=== PATIENT | female | born 1955 | race Two or more races ===

== ENCOUNTER 2020-01-12 12:10 | Outpatient (REF) | payer OTHER, SELFPAY | END 2020-01-12 12:11 | disposition home or self-care (01) | LOC: HO.HMGCLDS 12:10 | PROVIDERS: PCP Internal Medicine; Visit Provider Internal Medicine | DX: Z20.828 Contact with and (suspected) exposure to other viral communicable diseases (principal) | CPT/HCPCS: C9803; U0003 ==

== ENCOUNTER 2020-05-04 08:32 | Outpatient (REF) | payer OTHER, SELFPAY ==
[2020-05-05 10:16] LABS: BV Int Neg Control Negative (Negative); BV Int Pos Control Positive (Positive)
[2020-05-05 23:12] LABS: C. trachomatis RNA TMA NOT DETECTED (NOT DETECTED); N. gonorrhoeae RNA TMA NOT DETECTED (NOT DETECTED)
== END 2020-05-04 08:33 | disposition home or self-care (01) ==
LOC: HO.LAB 08:32
PROVIDERS: Visit Provider Obstetrics & Gynecology
DX: R10.2 Pelvic and perineal pain (principal); Z11.3 Encounter for screening for infections with a predominantly sexual mode of transmission
CPT/HCPCS: 81003; 87086; 87480; 87491; 87510; 87591; 87660

== ENCOUNTER 2020-05-18 07:57 | Outpatient (REF) | payer OTHER, SELFPAY ==
[2020-05-18 10:43] LABS: TSH reflex Free T4 0.58 uIU/mL (0.32-4.0)
[2020-05-19 10:13] LABS: CT PCR NOT DETECTED (Not Detect.); NG PCR NOT DETECTED (Not Detect.)
== END 2020-05-18 07:58 | disposition home or self-care (01) ==
LOC: HO.LAB 07:57
PROVIDERS: PCP Internal Medicine; Visit Provider Obstetrics & Gynecology
DX: Z01.419 Encounter for gynecological examination (general) (routine) without abnormal findings (principal); Z11.3 Encounter for screening for infections with a predominantly sexual mode of transmission; R63.5 Abnormal weight gain
CPT/HCPCS: 84443; 87086; 87491; 87591; 88142

== ENCOUNTER 2020-07-12 09:07 | Outpatient (REF) | payer OTHER, SELFPAY ==
[2020-07-12 12:06] LABS: Alanine Aminotransferase 44 U/L (0-31); Albumin Level 4.3 g/dL (3.5-5.0); Alkaline Phosphatase 53 U/L (39-117); Anion Gap 12 (12-20); Aspartate Amino Transferase 34 U/L (5-31); Bilirubin Total 0.9 mg/dL (0.0-1.0); Blood Urea Nitrogen 20 mg/dL (9-16); Calcium 9.4 mg/dL (8.4-10.2); Carbon Dioxide 30 mmol/L (22-29); Chloride 103 mmol/L (96-108); Cholesterol 214 mg/dL; Estimated Glomerular Filt Rate > 60; Glucose Fasting 122 mg/dL (60-99); HDL Cholesterol 46 mg/dL; Potassium 3.6 mmol/L (3.3-5.1); Sodium 141 mmol/L (135-145); Total Protein 6.9 g/dL (6.5-8.0); Triglycerides 427 mg/dL
[2020-07-12 12:07] LABS: TSH reflex Free T4 0.34 uIU/mL (0.32-4.0)
== END 2020-07-12 09:08 | disposition home or self-care (01) ==
LOC: HO.HMGCLDS 09:07
PROVIDERS: PCP Nurse Practitioner Family; Visit Provider Nurse Practitioner Family
DX: Z00.00 Encounter for general adult medical examination without abnormal findings (principal); R74.8 Abnormal levels of other serum enzymes; E78.5 Hyperlipidemia, unspecified
CPT/HCPCS: 36415; 80053; 80061; 84443

== ENCOUNTER 2020-07-25 15:21 | Outpatient (REF) | payer OTHER, SELFPAY ==
--- NOTE | ~2020-07-25 | MM_ITS ---
EXAMINATION: MM SCREENING DIGITAL BREAST TOMOSYNTHESIS, BILATERAL CLINICAL INFORMATION: Screening. Asymptomatic. The lifetime risk of breast cancer based on the Tyrer-Cuzick Model is 5.1%. COMPARISON: Mammography: April 01, 2017 and studies dating back to July 08, 2013 TECHNIQUE: Digital breast tomosynthesis is performed in both the craniocaudal and mediolateral oblique views along with computer-aided detection (CAD). Synthesized 2D images are generated from the tomosynthesis. FINDINGS: The breasts are heterogeneously dense, which may obscure small masses (ACR BI-RADS breast composition Category c). There are no significant masses, abnormal calcifications, or other abnormalities. MM/MM tomosynthesis screening BI IMPRESSION: There are no significant changes from prior study. ASSESSMENT: BI-RADS 1: Negative RECOMMENDATION: Routine annual mammography screening. This patient's information was entered into a reminder system with a target due date for their next mammogram.
== END 2020-07-25 15:22 | disposition home or self-care (01) ==
LOC: HO.MAMMO 15:21
PROVIDERS: PCP Nurse Practitioner Family; Visit Provider Nurse Practitioner Family
DX: Z12.31 Encounter for screening mammogram for malignant neoplasm of breast (principal)
CPT/HCPCS: 77063; 77067

== ENCOUNTER 2021-01-03 07:41 | Outpatient (REF) | payer OTHER, SELFPAY ==
[2021-01-03 12:05] LABS: Alanine Aminotransferase 46 U/L (0-31); Albumin Level 4.2 g/dL (3.5-5.0); Alkaline Phosphatase 49 U/L (39-117); Anion Gap 12 (12-20); Aspartate Amino Transferase 39 U/L (5-31); Bilirubin Total 0.6 mg/dL (0.0-1.0); Blood Urea Nitrogen 16 mg/dL (9-16); Calcium 9.5 mg/dL (8.4-10.2); Carbon Dioxide 30 mmol/L (22-29); Chloride 104 mmol/L (96-108); Cholesterol 189 mg/dL; Estimated Glomerular Filt Rate > 60; Glucose Random 122 mg/dL (60-115); HDL Cholesterol 52 mg/dL; LDL Cholesterol Calculated 86 mg/dl; Potassium 3.8 mmol/L (3.3-5.1); Sodium 142 mmol/L (135-145); Total Protein 6.7 g/dL (6.5-8.0); Triglycerides 256 mg/dL
[2021-01-04 10:31] LABS: HBS Num1 1.09 mIU/mL (0-7.99); HBc Num1 0.05 S/CO (0.00-0.79); HBsAGNum1 0.17 S/CO (0.00-0.99); Hepatitis B Core Antibody Nonreactive (Nonreactive); Hepatitis B Surface Antigen Negative (Negative); ~HepC Num1 0.13 S/CO (0.00-0.79); ~Hepatitis B Surface Antibody NONREACTIVE (Nonreactive); ~Hepatitis C Antibody Nonreactive (Nonreactive)
[2021-01-06 03:57] LABS: Hepatitis A Antibody IgM 0.38 Index (0-0.79); ~Hepatitis A Antibody IgM Nonreactive (Nonreactive)
== END 2021-01-03 07:42 | disposition home or self-care (01) ==
LOC: HO.HMGCLDS 07:41
PROVIDERS: PCP Nurse Practitioner Family; Visit Provider Nurse Practitioner Family
DX: E78.5 Hyperlipidemia, unspecified (principal); R74.8 Abnormal levels of other serum enzymes
CPT/HCPCS: 36415; 80053; 80061; 86704; 86706; 86709; 86803; 87340

== ENCOUNTER 2021-03-08 22:47 | Emergency (ER) | payer OTHER, MEDICAID, SELFPAY ==
[2021-03-08 23:04] VITALS: BP 153/86; PULSE 49; RESP 18; TEMP 36.7; O2SAT 95; BMI 27.3
[2021-03-08 23:43] VITALS: BP 152/92; PULSE 48; RESP 18; O2SAT 95
--- NOTE | 2021-03-09 00:04 | ED_ITS ---
HPI - General Adult General Chief complaint: Allergic Reaction Stated complaint: ?stroke Time Seen by Provider: 03/08/21 22:59 Source: patient Mode of arrival: ambulatory Limitations: no limitations History of Present Illness HPI narrative: 66-year-old female who presents emergency department for evaluation of numbness, shortness of breath and difficulty talking. The patient states that she has been sick since Saturday02/28/2021. She states that she developed a viral-like illness with a cough, intermittent fever and shortness of breath. She did a home COVID-19 test on 03/04/2021 and also had a positive CO VID-19 test on 03/05/2021 at an urgent care clinic. She states that since that time she has been having a constant, throbbing, moderate headache. She has had weakness and fatigue. She has had a cough which is nonproductive. She has had multiple episodes of diarrhea. Prior to coming to the emergency department the patient took Mucinex DM which contains guaifenesin and dexamethasone. Approxim ately 20 minutes after taking this medication she felt lightheaded and dizzy. She states she developed numbness in her mouth, arms and legs. She states that her entire body became numb and she felt like if she was going to pass out. She had difficulty talking. Her family was concerned that she was having a stroke hilda was brought to the emergency department. At triage the patient was unable to talk and she was brought into the emergency department. I evaluated her immediately for possible stroke, the patient was able to talk, answer questions and move all extremities, she appeared to be hyperventilating and her symptoms are more consistent with hyperventilation syndrome. Related Data Previous Rx's Medication Instructions Recorded omega-3 acid ethyl esters 1 gram 1 cap PO BID 90 Days #180 cap 07/12/20 capsule lisinopril 20 1 tab PO DAILY 90 Days #90 tab 01/03/21 mg-hydrochlorothiazide 25 mg tablet metoprolol succinate 50 mg 50 mg PO DAILY 90 Days #90 tab 01/03/21 tablet,extended release 24 hr rosuvastatin 40 mg tablet 40 mg PO DAILY 90 Days #90 tab 01/03/21 naproxen 500 mg tablet 500 mg PO BID PRN 90 Days #180 tab 01/14/21 albuterol sulfate 90 mcg/actuation 1 inh INHALATION QID PRN #6.7 g 02/17/21 aerosol inhaler codeine 10 mg-guaifenesin 100 mg/5 5 ml PO Q6H #237 ml 02/17/21 mL oral liquid Allergies Allergy/AdvReac Type Severity Reaction Status Date / Time Wellbutrin AdvReac Unknown worsening Uncoded 02/17/21 09:52 mood, dizziness Review of Systems Review of Systems: Yes all other systems are reviewed and are negative [facility] Past Medical History Medical History AAA (abdominal aortic aneurysm) Back pain Elevated fasting glucose HTN (hypertension) Hyperlipemia Migraines Family History Family History Mother Thyroid cancer Social History Social History Alcohol intake: current Alcohol intake frequency: holidays/special occasions only Alcohol type: wine Patient Tobacco Use Status: Current someday Tobacco user Advance Directives: No Advance Directives Information Provided: No Gender identity: Female Physical Exam Vital Signs: Vital Signs: Last Vital Signs Temp 98.0 F 03/08/21 23:04 Pulse 48 L 03/08/21 23:43 Resp 18 03/08/21 23:43 BP 152/92 H 03/08/21 23:43 Pulse Ox 95 03/08/21 23:43 BMI result Body Mass Index 27.3 Const: General: cooperative and no acute distress Orientation/consciousness: oriented to person and oriented to place Limitations: no limitations HENMT: Head: Yes normal to inspection, Yes normocephalic and Yes atraumatic Ears: external ears normal General nose exam: Normal external nose present Face and sinus: Yes normal facial exam Mouth: Normal oral and palatal mucosa present Throat: Yes posterior oropharynx normal Eyes: General: appearance normal, both eyes and all related structures Pupils: Equal, round and reactive pupils present Neck: Neck: Yes normal visual inspection, Yes no lymphadenopathy, Yes trachea midline and Yes supple Chest: Chest palpation & inspection: normal inspection of the chest and normal palpation of entire chest wall Resp: Effort & Inspection: normal respiratory effort and able to speak in complete sentences Auscultation: clear to auscultation bilaterally Cardio: Rate: regular rate Rhythm: regular rhythm Heart sounds: S1 normal heart sound present, S2 normal heart sound present and no murmurs GI: Inspection: Yes normal to inspection Palpation (GI): Soft to palpation, nontender and no guarding Auscultation: normal bowel sounds : General: Yes no CVA tenderness Back/Spine/Pelvis: Back: no CVA tenderness Skin: General skin exam: no rashes or lesions noted Neuro: General: oriented to person and oriented to place Cranial nerves: Yes CN's II-XII intact bilaterally and Yes Equal, round and reactive pupils present Cognition (Neuro): normal cognition Motor exam (neuro): 5/5 motor strength present throughout Extrem: General: Yes normal to inspection Psych: Appearance: grossly normal Speech and movement: Normal speech and movement present Affect: normal affect Attitude: cooperative Thought process: Normal thought process present Thought content: Normal thought content present Course Course Course Narrative: 66-year-old female who is COVID positive who presents emergency department for evaluation of lightheadedness, dizziness, perioral numbness and body numbness after taking a dose of Mucinex DM. On presentation to the emergency department the patient was unable to talk but her findings were consistent with hyperventilation syndrome. She was brought to a room and her symptoms eventually improved. The patient's other symptoms are consistent with a COVID-19 infection, I do not think that she has COVID pneumonia at this time. Her O2 saturation was 94% on room air. I did discuss the management of COVID 19 infection with the patient. She was advised to take Tylenol and ibuprofen she was discharged home. Discharge Plan Discharge Clinical Impression: Acute hyperventilation syndrome, COVID-19 virus infection Patient Disposition: Home, Self-Care Instructions: Hyperventilation (ED), COVID-19 (Coronavirus Disease 2019) (ED) Additional Instructions: Your symptoms of numbness, lightheadedness, dizziness and spasm of your hands and feet are consistent with hyperventilation syndrome which was triggered by you taking Mucinex DM. Do not take this medication again. Your vital signs today revealed a normal O2 saturation of 94 % which is normal (92% to 100% is the normal range). We do not hospitalize people with a COVID-19 infection unless your O2 saturation drops below 90% and you have evidence for pneumonia on your chest x-ray. COVID-19 infection is a very bad viral infection and is causing all of your symptoms The symptoms that we normally see with a COVID-19 infection include sore throat, runny nose, chest pain, shortness of breath, shortness of breath with exertion, muscle aches, muscle pains, nausea, vomiting , diarrhea, loss of sense of taste or smell. You do not need to have all of the symptoms. Take ibuprofen 200 mg pills, 3 pills every 6 hours as needed for pain and fever Take Tylenol (acetaminophen) 500 mg pills, 2 pills every 4 to 6 hours as needed for pain and fever. Follow-up with your doctor in 2 days. Please return to the emergency department if your symptoms get worse or if you develop any symptoms that are concerning to you. Prescriptions: No Action omega-3 acid ethyl esters 1 gram capsule 1 cap PO BID 90 Days Qty: 180 RF: 0 metoprolol succinate 50 mg tablet extended release 24 hr 50 mg PO DAILY 90 Days Qty: 90 RF: 0 lisinopril-hydrochlorothiazide 20-25 mg tablet 1 tab PO DAILY 90 Days Qty: 90 RF: 0 rosuvastatin 40 mg tablet 40 mg PO DAILY 90 Days Qty: 90 RF: 0 naproxen 500 mg tablet 500 mg PO BID PRN (Reason: pain) 90 Days Qty: 180 RF: 0 albuterol sulfate 90 mcg/actuation HFA aerosol inhaler 1 inh inhalation QID PRN (Reason: shortness of breath or wheezing) Qty: 6.7 RF: 1 codeine-guaifenesin 10-100 mg/5 mL liquid 5 ml PO Q6H Qty: 237 RF: 0
== END 2021-03-09 00:41 | disposition home or self-care (01) ==
PROVIDERS: Emergency Provider Emergency Medicine Emergency Medical Services
DX: U07.1 COVID-19 (principal); F45.8 Other somatoform disorders
CPT/HCPCS: 99283; 99284

== ENCOUNTER 2021-04-18 08:25 | Outpatient (REF) | payer OTHER, MEDICAID, SELFPAY ==
[2021-04-18 11:54] LABS: Cholesterol 198 mg/dL; HDL Cholesterol 59 mg/dL; LDL Cholesterol Calculated 101 mg/dl; Triglycerides 190 mg/dL
== END 2021-04-18 08:26 | disposition home or self-care (01) ==
LOC: HO.HMGCLDS 08:25
PROVIDERS: PCP Nurse Practitioner Family; Visit Provider Nurse Practitioner Family
DX: E78.5 Hyperlipidemia, unspecified (principal)
CPT/HCPCS: 36415; 80061

== ENCOUNTER 2021-04-20 13:34 | Outpatient (REF) | payer OTHER, SELFPAY ==
[2021-04-20 16:59] LABS: Troponin-I High Sensitivity < 3.5 ng/L (<3.5-17.0)
== END 2021-04-20 13:35 | disposition home or self-care (01) ==
LOC: HO.HMGCLDS 13:34
PROVIDERS: Visit Provider Physician Assistant
DX: I10 Essential (primary) hypertension (principal)
CPT/HCPCS: 36415; 84484

== ENCOUNTER 2021-07-27 11:19 | Outpatient (REF) | payer OTHER, SELFPAY ==
--- NOTE | ~2021-07-27 | MM_ITS ---
EXAMINATION: MM SCREENING DIGITAL BREAST TOMOSYNTHESIS, BILATERAL CLINICAL INFORMATION: Screening. Asymptomatic. The lifetime risk of breast cancer based on the Tyrer-Cuzick Model is 4.4%. COMPARISON: Mammography: July 25, 2020 and studies dating back to July 08, 2013 TECHNIQUE: Digital breast tomosynthesis is performed in both the craniocaudal and mediolateral oblique views along with computer-aided detection (CAD). Synthesized 2D images are generated from the tomosynthesis. FINDINGS: The breasts are heterogeneously dense, which may obscure small masses (ACR BI-RADS breast composition Category c). There are no new significant masses, abnormal calcifications, or other abnormalities. MM/MM tomosynthesis screening BI IMPRESSION: There are no significant changes from prior study. ASSESSMENT: BI-RADS 1: Negative RECOMMENDATION: Routine annual mammography screening. This patient's information was entered into a reminder system with a target due date for their next mammogram.
== END 2021-07-27 11:20 | disposition home or self-care (01) ==
LOC: HO.MAMMO 11:19
PROVIDERS: Visit Provider Nurse Practitioner Family
DX: Z12.31 Encounter for screening mammogram for malignant neoplasm of breast (principal)
CPT/HCPCS: 77063; 77067

== ENCOUNTER 2021-08-04 13:56 | Outpatient (REF) | payer OTHER, SELFPAY ==
[2021-08-04 14:43] LABS: Influenza A PCR NEGATIVE (Negative); Influenza B PCR NEGATIVE (Negative); Resp Syncy Virus RNA Qual PCR NEGATIVE (Negative); SARS COV2 PCR INHOUSE POSITIVE (Negative)
== END 2021-08-04 13:57 | disposition home or self-care (01) ==
LOC: HO.LNP 13:56
PROVIDERS: Visit Provider Nurse Practitioner Acute Care
DX: R68.89 Other general symptoms and signs (principal); Z20.822 Contact with and (suspected) exposure to COVID-19
CPT/HCPCS: 0241U

== ENCOUNTER 2021-10-30 08:36 | Outpatient (REF) | payer OTHER, SELFPAY ==
[2021-10-30 11:24] LABS: MANUAL DIFF FLAG NO
[2021-10-30 11:27] LABS: Appearance Urine Clear; Color Urine Yellow; Glucose Urine UA Negative (Negative); Leukocyte Esterase Urine Negative (Negative); Nitrite Urine Negative (Negative); Urine Blood Negative (Negative); Urine Ketones Negative (Negative); Urine Protein 30 (1+) mg/dL (Neg-Trace)
[2021-10-30 11:32] LABS: Bacteria Urine None Seen (None Seen); Hyaline Casts Urine 0-2 /LPF (0-2); RBC Urine 0-2 /HPF (0-2); Squamous Epithelial Cell Urine 0-2 /HPF (0-2); WBC Urine 0-5 /HPF (0-5)
[2021-10-30 11:35] LABS: Basophils Percent Auto 0.6 % (0-2); Eosinophils Absolute Auto 0.1 X10*3/uL (0.0-0.4); Hematocrit 43.5 % (37.0-47.0); Hemoglobin 14.3 g/dl (12.0-16.0); Imm Gran Abs Auto 0.01 X10*3/uL (0.00-0.03); Imm Gran Pct Auto 0.2 % (0.0-0.4); Lymphocytes Absolute Auto 1.5 X10*3/uL (1.2-4.9); Lymphocytes Percent Auto 29.1 % (20-40); Mean Corpuscular HGB Conc 32.9 g/dl (31.0-35.0); Mean Corpuscular Hemoglobin 29.7 pg (27.0-33.0); Mean Corpuscular Volume 90.4 fL (80.0-98.0); Mean Platelet Volume 11.6 fL (9.4-12.3); Monocytes Absolute Auto 0.5 X10*3/uL (0.1-1.2); Neutrophils Absolute Auto 2.9 x10*3/uL (2.0-8.3); Neutrophils Percent Auto 58.1 % (45-73); Platelet Count 186 X10*3/uL (160-400); Red Blood Count 4.81 X10*6/uL (4.20-5.50); Red Cell Distribution Width 13.1 % (11.0-16.0)
[2021-10-30 12:18] LABS: Alanine Aminotransferase 63 U/L (0-31); Albumin Level 4.5 g/dL (3.5-5.0); Alkaline Phosphatase 50 U/L (39-117); Anion Gap 16 (12-20); Aspartate Amino Transferase 45 U/L (5-31); Bilirubin Total 0.9 mg/dL (0.0-1.0); Blood Urea Nitrogen 21 mg/dL (9-16); Calcium 9.6 mg/dL (8.4-10.2); Carbon Dioxide 29 mmol/L (22-29); Chloride 101 mmol/L (96-108); Cholesterol 236 mg/dL; Estimated Glomerular Filt Rate > 60; Glucose Fasting 113 mg/dL (60-99); HDL Cholesterol 49 mg/dL; Potassium 3.8 mmol/L (3.3-5.1); Sodium 142 mmol/L (135-145); Total Protein 7.3 g/dL (6.5-8.0); Triglycerides 400 mg/dL
== END 2021-10-30 08:37 | disposition home or self-care (01) ==
LOC: HO.HMGCLDS 08:36
PROVIDERS: PCP Nurse Practitioner Family; Visit Provider Nurse Practitioner Family
DX: Z00.00 Encounter for general adult medical examination without abnormal findings (principal)
CPT/HCPCS: 36415; 80053; 80061; 81001; 84443; 85025

== ENCOUNTER 2021-11-15 13:20 | Outpatient (REF) | payer OTHER, SELFPAY ==
--- NOTE | ~2021-11-15 | MM_ITS ---
EXAMINATION: BONE DENSITOMETRY CLINICAL INDICATION: Nicotine dependence, unspecified, uncomplicated. COMPARISON: This is the patient's baseline examination. TECHNIQUE: Using a [employer] DXA System (software version: 13.1) manufactured by [employer], dual-energy x-ray absorptiometry was performed of the lumbar spine and left hip. The images are of good technical quality. Summary results are attached. FINDINGS: AP SPINE L1-L4: BMD 1.163 g/cm2, Z-score 1.0, T-score -0.1, normal. LEFT FEMUR, NECK: BMD 1.019 g/cm2, Z-score 1.0, T-score -0.1, normal. LEFT FEMUR, TOTAL: BMD 1.068 g/cm2, Z-score 1.4, T-score 0.5, normal. IDENTIFIED RISK FACTORS: Menopause, Thiazide, tobacco use (current smoker). HISTORY OF FRACTURE: None listed. MEDICATIONS: Calcium, vitamin D. MM/XR DEXA axial skeleton IMPRESSION: 1. DIAGNOSIS: Normal bone density based on the lowest T-score value of -0.1 in the lumbar spine and femur neck applying World Health Organization criteria. 2. 10-YEAR FRACTURE RISK PREDICTION, FRAX: Major osteoporotic fracture (clinical spine, forearm, hip or shoulder) 6.6%. Hip fracture 0.4%. 3. Treatment Recommendations: NOF guidelines recommend consideration for treatment in postmenopausal women and men age 50 and older presenting with the following: -A hip or vertebral (clinical or morphometric) fracture. -T-score less than or equal to -2.5 at the femoral neck or spine after appropriate evaluation to exclude secondary causes. -Low bone mass at the hip or spine and a 10-year fracture probability by FRAX of greater than or equal to 3% for hip fracture or greater than or equal to 20% for major osteoporotic fracture based on the [place] adapted WHO algorithm. 4. Other Recommendations: All treatment decisions require clinical judgment and consideration of individual patient factors, including patient preferences, comorbidities, previous drug use, risk factors not captured in the FRAX model (e.g. frailty, falls, vitamin D deficiency, increased bone turnover, interval significant decline in bone density) and possible under or overestimation of fracture risk by FRAX. FUTURE SCAN RECOMMENDATION: People with diagnosed cases of osteoporosis or at high risk for fracture should have regular bone mineral density tests. For patients eligible for Medicare, routine testing is allowed once every 2 years. The testing frequency can be increased to one year for patients who have rapidly progressing disease, those who are receiving or discontinuing medical therapy to restore bone mass, or have additional risk factors.
== END 2021-11-15 13:21 | disposition home or self-care (01) ==
LOC: HO.MAMMO 13:20
PROVIDERS: Visit Provider Nurse Practitioner Family
DX: Z13.820 Encounter for screening for osteoporosis (principal); Z78.0 Asymptomatic menopausal state; F17.200 Nicotine dependence, unspecified, uncomplicated
CPT/HCPCS: 77080

== ENCOUNTER 2021-11-24 14:29 | Outpatient (REF) | payer OTHER, SELFPAY ==
--- NOTE | ~2021-11-24 | XR_ITS ---
EXAMINATION: XR LUMBOSACRAL SPINE WITH OBLIQUES CLINICAL INFORMATION: Low back pain COMPARISON: None TECHNIQUE: AP, lateral, bilateral oblique, flexion, extension views lumbar spine, coned-down lateral view lumbosacral junction FINDINGS: Mild retrolisthesis at L3-L4, L4-L5, L5-S1, unchanged between flexion and extension views. No additional fixed or dynamic subluxation. Vertebral body heights are maintained. No acute fracture. Multilevel degenerative disc disease with mild multilevel disc height loss, endplate sclerosis and proliferative change as well as moderate disc height loss at L5-S1. Lower lumbar facet arthrosis. No pars defects identified. Mild aortic vascular calcifications. XR/XR lumbar spine 6V w bending IMPRESSION: 1. No fracture. 2. Mild to moderate multilevel degenerative disc disease and lower lumbar facet arthrosis.
== END 2021-11-24 14:30 | disposition home or self-care (01) ==
LOC: HO.HMGCX 14:29
PROVIDERS: PCP Nurse Practitioner Family
DX: M54.50 Low back pain, unspecified (principal); M79.604 Pain in right leg; M79.605 Pain in left leg
CPT/HCPCS: 72114

== ENCOUNTER 2021-12-20 10:25 | Outpatient (REF) | payer OTHER, SELFPAY ==
--- NOTE | ~2021-12-20 | US_ITS ---
EXAMINATION: US ABDOMEN COMPLETE CLINICAL INFORMATION: Abnormal levels of other serum enzymes. COMPARISON: CTA abdomen and pelvis 09/30/2018. Ultrasound abdomen complete 05/14/2017. MRI abdomen 12/15/2014. TECHNIQUE: Real-time imaging of the abdominal viscera. FINDINGS: PANCREAS: The head and body the pancreas are normal. The tail is not well visualized due to bowel gas. ABDOMINAL AORTA: The proximal abdominal aorta is normal in caliber. The mid and distal abdominal aorta is not well visualized. There is dilatation of the mid abdominal aorta measuring 3.9 x 4.1 cm. INFERIOR VENA CAVA: Visualized portions are normal. LIVER: Liver echotexture is increased. The liver contour is normal. The liver is upper normal in size. Liver lesion seen by CT not well appreciated by ultrasound.. There is no intrahepatic biliary duct dilatation seen. GALLBLADDER: Not well visualized. The gallbladder is contracted and the patient has recently eaten. COMMON BILE DUCT: Normal in caliber measuring 0.4 cm in diameter. RIGHT KIDNEY: Normal. No hydronephrosis. No renal calculi or focal parenchymal lesions. The kidney measures 11.2 cm in maximum dimension. LEFT KIDNEY: Normal. No hydronephrosis. No renal calculi or focal parenchymal lesions. The kidney measures 10.7 cm in maximum dimension. SPLEEN: Normal. The spleen measures 9.6 cm in maximum dimension. FREE FLUID: None. US/US abdomen complete IMPRESSION: Slightly echogenic enlarged liver suggestive of fatty infiltration. Liver lesion seen by CT not well appreciated. Limited visualization of the aorta, pancreas and gallbladder. Dilated mid abdominal aorta measuring 3.9 x 4.1 cm. This is increased from 3.3 x 3.4 cm September 2018 CTA. Follow-up dedicated abdominal aorta ultrasound recommended. Findings will be communicated by the [place] work flow director social.
== END 2021-12-20 10:26 | disposition home or self-care (01) ==
LOC: HO.US 10:25
PROVIDERS: Visit Provider Nurse Practitioner Family
DX: R74.8 Abnormal levels of other serum enzymes (principal)
CPT/HCPCS: 76700

== ENCOUNTER 2021-12-23 13:43 | Outpatient (REF) | payer OTHER, SELFPAY ==
--- NOTE | ~2021-12-23 | XR_ITS ---
EXAMINATION: XR CERVICAL SPINE CLINICAL INFORMATION: Neck pain. COMPARISON: Cervical spine radiographs dated 09/30/2014. TECHNIQUE: 4 views of the cervical spine were obtained. FINDINGS: There is normal cervical lordosis and spinal alignment. The vertebral bodies and intervertebral disc spaces are unremarkable. Mild to moderate degenerative disc disease is seen most pronounced at C5-C6 with disc space narrowing and marginal osteophyte formation. There is no acute fracture. The odontoid process is intact. The cervical soft tissues are unremarkable. XR/XR cervical spine 2V IMPRESSION: C5-C6 mild to moderate degenerative disc disease. No acute abnormality.
== END 2021-12-23 13:44 | disposition home or self-care (01) ==
LOC: HO.HMGCX 13:43
PROVIDERS: PCP Nurse Practitioner Family; Visit Provider Nurse Practitioner Acute Care
DX: M54.2 Cervicalgia (principal)
CPT/HCPCS: 72040

== ENCOUNTER 2022-01-05 14:26 | Outpatient (REF) | payer OTHER, SELFPAY ==
--- NOTE | ~2022-01-05 | CT_ITS ---
EXAMINATION: CT CHEST SCREENING CLINICAL INFORMATION: Nicotine dependence. 1 pack per day for 49 pack years. COMPARISON: None. TECHNIQUE: Multidetector volumetric CT imaging of the chest is performed without contrast using low dose technique. Additional 2D coronal and sagittal reformatted images and axial 3D maximum intensity projection (MIP) images are generated on the CT workstation. This CT examination was performed using dose optimization techniques as appropriate, variously including the following: *Automated exposure control *Adjustment of mA and/or kV according to patient size (this includes techniques or standardized protocols for targeted exams where dose is matched to indication/reason for exam; i.e. extremities or head) *Use of iterative reconstruction technique DLP: 48 mGy-cm FINDINGS: LUNGS: Mild centrilobular emphysematous changes of lungs without acute pneumonic process. There are no pulmonary nodules, mass or consolidation. No interstitial thickening or ground-glass attenuation. MEDIASTINUM: The thyroid lobes are symmetric and normal. The central trachea and the bronchi are widely patent. Heart size and the great vessels are normal caliber. Minimal atherosclerotic calcification of aortic arch and distal thoracic abdominal aorta is noted. No aneurysm seen. No abnormal-size mediastinal lymph nodes or mass seen. No pericardial effusion. CORONARY ARTERY CALCIFICATION: None visualized on this study. PLEURA: There is no pleural effusion. No pleural mass or thickening. AXILLA: No lymphadenopathy. The chest wall is unremarkable. UPPER ABDOMEN: Visualized liver, spleen, pancreas and bilateral adrenal glands unremarkable. OSSEOUS STRUCTURES: There is mild ventral spondylosis dorsal spine. No aggressive lytic or sclerotic process seen. CT/CT lung screening IMPRESSION: Centrilobular emphysema without acute pneumonic process. No pulmonary nodules seen. Low-dose annual CT chest exam. ASSESSMENT: Lung-RADS category 1: Negative RECOMMENDATION: Low-dose annual CT chest.
== END 2022-01-05 14:27 | disposition home or self-care (01) ==
LOC: HO.CT 14:26
PROVIDERS: PCP Nurse Practitioner Family; Visit Provider Physician Assistant Medical
DX: Z12.2 Encounter for screening for malignant neoplasm of respiratory organs (principal); F17.210 Nicotine dependence, cigarettes, uncomplicated
CPT/HCPCS: 71271; G0296

== ENCOUNTER 2022-02-27 08:32 | Outpatient (REF) | payer MEDICARE, MEDICAID, SELFPAY ==
[2022-02-27 11:57] LABS: Alanine Aminotransferase 31 U/L (0-31); Alkaline Phosphatase 49 U/L (39-117); Anion Gap 10 (12-20); Aspartate Amino Transferase 25 U/L (5-31); Bilirubin Total 0.5 mg/dL (0.0-1.0); Blood Urea Nitrogen 14 mg/dL (9-16); Calcium 9.3 mg/dL (8.4-10.2); Carbon Dioxide 31 mmol/L (22-29); Chloride 105 mmol/L (96-108); Cholesterol 119 mg/dL; Estimated Glomerular Filt Rate > 60; Glucose Fasting 124 mg/dL (60-99); HDL Cholesterol 53 mg/dL; LDL Cholesterol Calculated 39 mg/dl; Potassium 3.8 mmol/L (3.3-5.1); Sodium 142 mmol/L (135-145); Total Protein 6.6 g/dL (6.5-8.0); Triglycerides 139 mg/dL
== END 2022-02-27 08:33 | disposition home or self-care (01) ==
LOC: HO.HMGCLDS 08:32
PROVIDERS: PCP Nurse Practitioner Family; Visit Provider Nurse Practitioner Family
DX: E78.5 Hyperlipidemia, unspecified (principal)
CPT/HCPCS: 36415; 80053; 80061

== ENCOUNTER 2022-03-01 12:54 | Outpatient (REF) | payer MEDICARE, MEDICAID, SELFPAY ==
--- NOTE | ~2022-03-01 | US_ITS ---
EXAMINATION: US SOFT TISSUE NECK CLINICAL INFORMATION: Generalized enlarged lymph nodes. COMPARISON: None TECHNIQUE: Ultrasound of the neck soft tissues is performed with high- frequency thomason-scale imaging and color Doppler. FINDINGS: Ultrasound imaging of the concerned area of the right neck which includes level 3 and level 5 segments there are small shotty lymph nodes measuring 1 cm maximum in long axis in the right neck. No abnormal lymph nodes seen in left neck. Incidentally noted is a left thyroid heterogeneous nodule measuring 1.6 x 1.5 x 2.0 cm. US/US soft tiss head and/or neck IMPRESSION: No abnormal size neck lymph nodes seen. Incidentally noted is a left thyroid heterogeneous nodule measuring 1.6 cm. Recommend ultrasound thyroid for follow-up.
== END 2022-03-01 12:55 | disposition home or self-care (01) ==
LOC: HO.US 12:54
PROVIDERS: PCP Nurse Practitioner Family; Visit Provider Nurse Practitioner Family
DX: Z13.89 Encounter for screening for other disorder (principal)
CPT/HCPCS: 76536

== ENCOUNTER 2022-03-01 18:09 | Emergency (ER) | payer MEDICARE, MEDICAID, SELFPAY ==
--- NOTE | ~2022-03-01 | XR_ITS ---
EXAMINATION: XR CHEST CLINICAL INFORMATION: Cough, supraclavicular lymphadenopathy COMPARISON: None TECHNIQUE: 2 views of the chest were obtained. FINDINGS: No significant abnormality is noted involving the heart, lungs, mediastinum, bony thorax or soft tissues. XR/XR chest 2V IMPRESSION: Unremarkable examination.
[2022-03-01 18:34] VITALS: BP 131/86; PULSE 70; RESP 18; TEMP 36.9; O2SAT 97; BMI 27.3
--- NOTE | 2022-03-01 18:34 | ED.URI ---
HPI - URI/Sore Throat General Chief Complaint: General Medical <Krystal Castañeda NP - Last Filed: 03/01/22 18:41> Stated Complaint: sore throat,glands swollen,sob <Krystal Castañeda NP - Last Filed: 03/01/22 18:41> Time Seen by Provider: 03/01/22 22:58 <Krystal Castañeda NP - Last Filed: 03/01/22 18:41> Source: patient <Izabella Pace MD - Last Filed: 03/02/22 01:03> Mode of arrival: ambulatory <Izabella Pace MD - Last Filed: 03/02/22 01:03> Limitations: no limitations <Izabella Pace MD - Last Filed: 03/02/22 01:03> History of Present Illness HPI Narrative: 67-year-old female came in for evaluation of shortness of breath and generalized weakness. Since last week patient feeling generalized weakness, coughing, enlarged swell walling glands in the neck and in the chest, patient's daughter was sick with flu/cold and patient had the same symptoms patient was trying home remedy trying to cure herself. Patient walked in today for worsening of her symptoms concern of the swelling enlarged lymph node in her neck and chest patient had ultrasound ordered by PCP which showed no significant abnormal ultrasound. <Izabella Pace MD - Last Filed: 03/02/22 01:03> Related Data Home Medications: Home Medications Medication Instructions Recorded Confirmed nicotine (polacrilex) 4 mg buccal 4 mg buccal Q6H PRN 05/01/21 02/27/22 lozenge cholecalciferol (vitamin D3) 25 25 mcg PO DAILY 02/27/22 02/27/22 mcg (1,000 unit) capsule omega-3 acid ethyl esters 1 gram 1 cap PO BID 02/27/22 02/27/22 capsule Previous Rx's Medication Instructions Recorded albuterol sulfate 90 mcg/actuation 1 inh inhalation QID PRN shortness 07/13/21 aerosol inhaler of breath or wheezing #6.7 grams icosapent ethyl 0.5 gram capsule 2 g PO BID 30 days #240 caps 11/14/21 (Vascepa) amlodipine 2.5 mg tablet 2.5 mg PO DAILY 90 days #90 tabs 10/04/22 ibuprofen 600 mg tablet 600 mg PO Q8H PRN pain #14 tabs 12/23/21 SI joint Belt #1 ea 01/11/22 rosuvastatin 40 mg tablet 40 mg PO DAILY 90 days #90 tabs 01/13/22 Gait belt #1 ea 01/15/22 aspirin 81 mg tablet,delayed 81 mg PO DAILY 90 days #90 tabs 01/15/22 release (Adult Low Dose Aspirin) ezetimibe 10 mg tablet 10 mg PO DAILY 90 days #90 tabs 01/15/22 metoprolol succinate 25 mg 25 mg PO DAILY 90 days #90 tabs 01/15/22 tablet,extended release 24 hr multivitamin (Daily Multi-Vitamin 1 tab PO DAILY 90 days #90 tabs 01/15/22 tablet) nicotine (polacrilex) 4 mg buccal 4 mg buccal Q6H PRN nicotine 02/01/22 mini lozenge cravings 20 days #81 ea lisinopril 20 1 tab PO DAILY 60 days #60 tabs 02/19/22 mg-hydrochlorothiazide 25 mg tablet colesevelam 625 mg tablet (WelChol) 1,250 mg PO BID 30 days #120 tabs 02/27/22 prednisone 50 mg tablet 50 mg PO DAILY 6 days #6 tabs 03/01/22 <Krystal Castañeda NP - Last Filed: 03/01/22 18:41> Allergies/Adverse Reactions: Allergies Allergy/AdvReac Type Severity Reaction Status Date / Time Wellbutrin AdvReac Unknown worsening Uncoded 02/27/22 12:18 mood, dizziness <Krystal Castañeda NP - Last Filed: 03/01/22 18:41> Review of Systems Review of Systems: All other systems are reviewed and are negative Constitutional: Reports as per HPI and Reports no additional constitutional complaints Eyes: Reports as per HPI and Reports no additional eye complaints Reports system reviewed and no additional complaints, except as documented Cardiovascular: Reports as per HPI and Reports no additional cardiovascular complaints Respiratory: Reports as per HPI and Reports no additional respiratory complaints Gastrointestinal: Reports as per HPI and Reports no additional gastrointestinal complaints Genitourinary: Reports no additional female genitourinary complaints Musculoskeletal: Reports no additional musculoskeletal complaints Skin/Breast: Reports system reviewed and no additional complaints, except as docu Psychiatric: Reports no additional psychiatric complaints Endocrine: Reports no additional endocrine complaints Hematologic/Lymphatic: Reports no additional hematologic/lymphatic complaints Allergic/Immunologic: Reports no additional allergic/immunologic complaints Reports system reviewed and no additional complaints, except as documented and Reports Abnormal speech present <Izabella Pace MD - Last Filed: 03/02/22 01:03> [facility] Past Medical History Medical History: Medical History AAA (abdominal aortic aneurysm) Back pain Dyslipidemia Elevated fasting glucose Elevated liver enzymes Elevated systolic blood pressure reading with diagnosis of hypertension History of COVID-19 Left thyroid nodule Liver lesion, right lobe Migraines Parotiditis Postmenopausal Tubular adenoma of colon (~2013) <Krystal Castañeda NP - Last Filed: 03/01/22 18:41> Surgical History: Surgical History History of colonoscopy <Krystal Castañeda NP - Last Filed: 03/01/22 18:41> Family History Family History: Family History Mother Thyroid cancer <Krystal Castañeda NP - Last Filed: 03/01/22 18:41> Social History Social History: Social History Housing: House Alcohol intake: current Alcohol intake frequency: holidays/special occasions only Alcohol type: wine Patient Tobacco Use Status: Current someday Tobacco user Tobacco use type: Cigarette Cigarettes Per Day: 1 Years Smoked: (onset 19yo, 1ppd x 47yrs, 40+PYH) e-Cigarette/Vaping Use: Never Used Second Hand Smoke Exposure: Yes Advance Directives: No Advance Directives Information Provided: Yes service: No Current occupational status: retired Gender identity: Female Cognitive needs: No Hearing needs: No Vision needs: No <Krystal Castañeda NP - Last Filed: 03/01/22 18:41> Physical Exam Vital Signs: Vital Signs: Last Vital Signs Temp 8.2 F L 03/01/22 21:26 Pulse 71 03/01/22 21:26 Resp 18 03/01/22 21:26 BP 116/63 03/01/22 21:26 Pulse Ox 97 03/01/22 21:26 O2 Del Method 03/01/22 21:26 BMI result Body Mass Index 27.3 <Krystal Castañeda NP - Last Filed: 03/01/22 18:41> Vital Signs: Last Vital Signs Temp 8.2 F L 03/01/22 21:26 Pulse 71 03/01/22 21:26 Resp 18 03/01/22 21:26 BP 116/63 03/01/22 21:26 Pulse Ox 97 03/01/22 21:26 O2 Del Method 03/01/22 21:26 BMI result Body Mass Index 27.3 Vital signs have been reviewed as appeared to be correct. Blood pressure normal. Heart rate normal. Respiration rate normal. Temperature normal. Oxygen saturation normal. <Izabella Pace MD - Last Filed: 03/02/22 01:03> Appearance: Alert. Oriented X3. No acute distress. Head: Normal external exam. Normocephalic. Atraumatic. No Quarles signs noted. No raccoon eyes noted Eyes: PERRLA. EOMI. Conjunctiva and sclera normal. Eyelids normal. ENT: TM's Normal. Pharynx normal. Uvula midline. Moist mucous membranes. No trismus noted. No drooling noted. No muffled voice noted. Neck: Normal inspection. Neck supple. FROM. No adenopathy. Thyroid Normal. No meningeal signs. No neck mass noted. CVS: Normal heart rate and rhythm. Heart sound normal. No murmurs noted. Pulses normal throughout. Respiratory: No respiratory distress. Painless inspiration. Breath sounds normal. No wheezes/rales/rhonchi noted. Chest nontender. No accessory muscle usage noted or decreased air movement noted. Abdomen: Soft and nontender. Bowel sounds normal in all 4 quadrants. No distention noted. No organomegaly noted. No visible injury noted. Back: No CVA tenderness. Full range of motion noted. Skin: Skin warm and dry. Normal skin color. Normal skin turgor. No rashes/lesions/lacerations noted. Extremities: No lower extremity edema. Extremities exhibit normal range of motion. Extremities nontender. Neuro: Oriented X 3. Cranial nerve exam: II-XII are grossly intact No motor deficit. No sensory deficit. Reflexes normal. <Izabella Pace MD - Last Filed: 03/02/22 01:03> Course Course Course Narrative: This is a rapid medical exam. deferred additional HPI, ROS, PE to primary provider. 67 yo female w/ history of HTN, HLD, former smoker (one month ago) here with sore throat, low grade fever, fatigue starting Saturday. Started to develop lymph node swelling increasing since yesterday. Had outpatient US today of lymph node, waiting for results. Feels now SOB and like swelling is worse. Outpatient US in system but not resulted. +supraclavicular lymphadenopathy/cervical on exam. VSS. Will check testing for flu, COVID, RSV, strep. Will check chest x-ray. Will have secretary administrative assistant call for outpatient ultrasound result. <Krystal Castañeda NP - Last Filed: 03/01/22 18:41> Reevaluation(s) Reevaluation #1: 67-year-old female came in for generalized weakness and flu-like symptoms patient has unremarkable labs, chest x-ray was unremarkable, outpatient neck ultrasound for assess self lymph node enlargement was unremarkable either. Will reassure and discharged home. <Izabella Pace MD - Last Filed: 03/02/22 01:03> Time: 00:59 <Izabella Pace MD - Last Filed: 03/02/22 01:03> Medical Decision Making Differential Diagnosis Differential Diagnoses: The differential diagnosis associated with the presentation includes (Pneumonia, upper respiratory viral infection, ACS.) <Izabella Pace MD - Last Filed: 03/02/22 01:03> Lab Data MDM Lab Attestation statement: I reviewed the patient's lab results. <Izabella Pace MD - Last Filed: 03/02/22 01:03> Result Diagrams: : 03/01/22 23:49 03/01/22 23:49 <Krystal Castañeda NP - Last Filed: 03/01/22 18:41> Labs: Lab Results 03/01/22 03/01/22 03/01/22 Range/Units 19:27 19:27 23:49 WBC 8.8 (4.8-10.8) X10*3/uL RBC 4.36 (4.20-5.50) X10*6/uL Hgb 12.9 (12.0-16.0) g/dl Hct 39.5 (37.0-47.0) % MCV 90.6 (80.0-98.0) fL MCH 29.6 (27.0-33.0) pg MCHC 32.7 (31.0-35.0) g/dl RDW 12.3 (11.0-16.0) % Plt Count 220 (160-400) X10*3/uL MPV 10.1 (9.4-12.3) fL Immature Gran % (Auto) 0.2 (0.0-0.4) % Neut % (Auto) 65.2 (45-73) % Lymph % (Auto) 23.9 (20-40) % Logan % (Auto) 8.7 (2-11) % Eos % (Auto) 1.3 (0-4) % Baso % (Auto) 0.7 (0-2) % Lymph # (Auto) 2.1 (1.2-4.9) X10*3/uL Logan # (Auto) 0.8 (0.1-1.2) X10*3/uL Eos # (Auto) 0.1 (0.0-0.4) X10*3/uL Baso # (Auto) 0.1 (0.0-0.2) X10*3/uL Abs Immat Gran (auto) 0.02 (0.00-0.03) X10*3/uL Absolute Neuts (auto) 5.7 (2.0-8.3) x10*3/uL Absolute Nucleated RBC 0.000 (0.0-0.012) X10*3/uL Nucleated RBC % (auto) 0.0 (0.0-0.2) /100WBC Sodium (135-145) mmol/L Potassium (3.3-5.1) mmol/L Chloride (96-108) mmol/L Carbon Dioxide (22-29) mmol/L Anion Gap (12-20) BUN (9-16) mg/dL Creatinine (0.5-1.4) mg/dL Estim Creat Clear Calc Estimated GFR Random Glucose (60-115) mg/dL Calcium (8.4-10.2) mg/dL Troponin I High Sens (<3.5-17.0) ng/L Influenza Type A (PCR) NEGATIVE (Negative) Influenza Type B (PCR) NEGATIVE (Negative) RSV RNA Qual (PCR) NEGATIVE (Negative) SARS-CoV-2 RNA (RT-PCR) NEGATIVE (Negative) S. pyogenes GrpA DONNA Negative (Negative) 03/01/22 03/01/22 Range/Units 23:49 23:49 WBC (4.8-10.8) X10*3/uL RBC (4.20-5.50) X10*6/uL Hgb (12.0-16.0) g/dl Hct (37.0-47.0) % MCV (80.0-98.0) fL MCH (27.0-33.0) pg MCHC (31.0-35.0) g/dl RDW (11.0-16.0) % Plt Count (160-400) X10*3/uL MPV (9.4-12.3) fL Immature Gran % (Auto) (0.0-0.4) % Neut % (Auto) (45-73) % Lymph % (Auto) (20-40) % Logan % (Auto) (2-11) % Eos % (Auto) (0-4) % Baso % (Auto) (0-2) % Lymph # (Auto) (1.2-4.9) X10*3/uL Logan # (Auto) (0.1-1.2) X10*3/uL Eos # (Auto) (0.0-0.4) X10*3/uL Baso # (Auto) (0.0-0.2) X10*3/uL Abs Immat Gran (auto) (0.00-0.03) X10*3/uL Absolute Neuts (auto) (2.0-8.3) x10*3/uL Absolute Nucleated RBC (0.0-0.012) X10*3/uL Nucleated RBC % (auto) (0.0-0.2) /100WBC Sodium 138 (135-145) mmol/L Potassium 3.9 (3.3-5.1) mmol/L Chloride 98 (96-108) mmol/L Carbon Dioxide 32 H (22-29) mmol/L Anion Gap 12 (12-20) BUN 15 (9-16) mg/dL Creatinine 0.90 (0.5-1.4) mg/dL Estim Creat Clear Calc 67.6 Estimated GFR > 60 Random Glucose 123 H (60-115) mg/dL Calcium 9.7 (8.4-10.2) mg/dL Troponin I High Sens < 3.5 (<3.5-17.0) ng/L Influenza Type A (PCR) (Negative) Influenza Type B (PCR) (Negative) RSV RNA Qual (PCR) (Negative) SARS-CoV-2 RNA (RT-PCR) (Negative) S. pyogenes GrpA DONNA (Negative) <Krystal Castañeda CRAYON MOLDING MACHINE OPERATOR - Last Filed: 03/01/22 18:41> Lab Results 03/01/22 03/01/22 03/01/22 Range/Units 19:27 19:27 23:49 WBC 8.8 (4.8-10.8) X10*3/uL RBC 4.36 (4.20-5.50) X10*6/uL Hgb 12.9 (12.0-16.0) g/dl Hct 39.5 (37.0-47.0) % MCV 90.6 (80.0-98.0) fL MCH 29.6 (27.0-33.0) pg MCHC 32.7 (31.0-35.0) g/dl RDW 12.3 (11.0-16.0) % Plt Count 220 (160-400) X10*3/uL MPV 10.1 (9.4-12.3) fL Immature Gran % (Auto) 0.2 (0.0-0.4) % Neut % (Auto) 65.2 (45-73) % Lymph % (Auto) 23.9 (20-40) % Logan % (Auto) 8.7 (2-11) % Eos % (Auto) 1.3 (0-4) % Baso % (Auto) 0.7 (0-2) % Lymph # (Auto) 2.1 (1.2-4.9) X10*3/uL Logan # (Auto) 0.8 (0.1-1.2) X10*3/uL Eos # (Auto) 0.1 (0.0-0.4) X10*3/uL Baso # (Auto) 0.1 (0.0-0.2) X10*3/uL Abs Immat Gran (auto) 0.02 (0.00-0.03) X10*3/uL Absolute Neuts (auto) 5.7 (2.0-8.3) x10*3/uL Absolute Nucleated RBC 0.000 (0.0-0.012) X10*3/uL Nucleated RBC % (auto) 0.0 (0.0-0.2) /100WBC Sodium (135-145) mmol/L Potassium (3.3-5.1) mmol/L Chloride (96-108) mmol/L Carbon Dioxide (22-29) mmol/L Anion Gap (12-20) BUN (9-16) mg/dL Creatinine (0.5-1.4) mg/dL Estim Creat Clear Calc Estimated GFR Random Glucose (60-115) mg/dL Calcium (8.4-10.2) mg/dL Troponin I High Sens (<3.5-17.0) ng/L Influenza Type A (PCR) NEGATIVE (Negative) Influenza Type B (PCR) NEGATIVE (Negative) RSV RNA Qual (PCR) NEGATIVE (Negative) SARS-CoV-2 RNA (RT-PCR) NEGATIVE (Negative) S. pyogenes GrpA DONNA Negative (Negative) 03/01/22 03/01/22 Range/Units 23:49 23:49 WBC (4.8-10.8) X10*3/uL RBC (4.20-5.50) X10*6/uL Hgb (12.0-16.0) g/dl Hct (37.0-47.0) % MCV (80.0-98.0) fL MCH (27.0-33.0) pg MCHC (31.0-35.0) g/dl RDW (11.0-16.0) % Plt Count (160-400) X10*3/uL MPV (9.4-12.3) fL Immature Gran % (Auto) (0.0-0.4) % Neut % (Auto) (45-73) % Lymph % (Auto) (20-40) % Logan % (Auto) (2-11) % Eos % (Auto) (0-4) % Baso % (Auto) (0-2) % Lymph # (Auto) (1.2-4.9) X10*3/uL Logan # (Auto) (0.1-1.2) X10*3/uL Eos # (Auto) (0.0-0.4) X10*3/uL Baso # (Auto) (0.0-0.2) X10*3/uL Abs Immat Gran (auto) (0.00-0.03) X10*3/uL Absolute Neuts (auto) (2.0-8.3) x10*3/uL Absolute Nucleated RBC (0.0-0.012) X10*3/uL Nucleated RBC % (auto) (0.0-0.2) /100WBC Sodium 138 (135-145) mmol/L Potassium 3.9 (3.3-5.1) mmol/L Chloride 98 (96-108) mmol/L Carbon Dioxide 32 H (22-29) mmol/L Anion Gap 12 (12-20) BUN 15 (9-16) mg/dL Creatinine 0.90 (0.5-1.4) mg/dL Estim Creat Clear Calc 67.6 Estimated GFR > 60 Random Glucose 123 H (60-115) mg/dL Calcium 9.7 (8.4-10.2) mg/dL Troponin I High Sens < 3.5 (<3.5-17.0) ng/L Influenza Type A (PCR) (Negative) Influenza Type B (PCR) (Negative) RSV RNA Qual (PCR) (Negative) SARS-CoV-2 RNA (RT-PCR) (Negative) S. pyogenes GrpA DONNA (Negative) <Izabella Pace MD - Last Filed: 03/02/22 01:03> Independent Interpretation I performed an independent interpretation of an: EKG (Sinus bradycardia at 58 beats per minutes, normal intervals, no ST-T changes.) and Plain X-Ray (Chest: No acute pathology.) <Izabella Pace MD - Last Filed: 03/02/22 01:03> Radiology Impression Discussion of test interpretation with radiology: I have reviewed the radiologist's reading. <Izabella Pace MD - Last Filed: 03/02/22 01:03> Discharge Plan Discharge Clinical Impression: Neck pain, Acute viral syndrome <Krystal Castañeda NP - Last Filed: 03/01/22 18:41> Patient Disposition: Home, Self-Care <Krystal Castañeda NP - Last Filed: 03/01/22 18:41> Instructions: Viral Syndrome (ED) <Krystal Castañeda NP - Last Filed: 03/01/22 18:41> Prescriptions: No Action albuterol sulfate 90 mcg/actuation HFA aerosol inhaler 1 inh inhalation QID PRN (Reason: shortness of breath or wheezing) Qty: 6.7 1RF Vascepa 0.5 gram capsule 2 g PO BID 30 Days Qty: 240 0RF amlodipine 2.5 mg tablet 2.5 mg PO DAILY 90 Days Qty: 90 1RF (DME) SI joint Belt See Rx Instructions .ROUTE .MEDSUPPLY Qty: 1 0RF Rx Instructions: As directed rosuvastatin 40 mg tablet 40 mg PO DAILY 90 Days Qty: 90 0RF (DME) Gait belt Misc See Rx Instructions .Route Qty: 1 0RF Rx Instructions: daily use for lumbar support metoprolol succinate 25 mg tablet extended release 24 hr 25 mg PO DAILY 90 Days Qty: 90 1RF ezetimibe 10 mg tablet 10 mg PO DAILY 90 Days Qty: 90 0RF aspirin [Adult Low Dose Aspirin] 81 mg tablet,delayed release (DR/EC) 81 mg PO DAILY 90 Days Qty: 90 1RF multivitamin [Daily Multi-Vitamin] Tablet 1 tab PO DAILY 90 Days Qty: 90 1RF nicotine (polacrilex) 4 mg mini lozenge 4 mg buccal Q6H PRN (Reason: nicotine cravings) 20 Days Qty: 81 0RF lisinopril-hydrochlorothiazide 20-25 mg tablet 1 tab PO DAILY 60 Days Qty: 60 2RF colesevelam [WelChol] 625 mg tablet 1,250 mg PO BID 30 Days Qty: 120 1RF prednisone 50 mg tablet 50 mg PO DAILY 6 Days Qty: 6 0RF nicotine (polacrilex) 4 mg lozenge 4 mg buccal Q6H PRN cholecalciferol (vitamin D3) 25 mcg (1,000 unit) capsule 25 mcg PO DAILY omega-3 acid ethyl esters 1 gram capsule 1 cap PO BID ibuprofen 600 mg tablet 600 mg PO Q8H PRN (Reason: pain) Qty: 14 0RF <Krystal Castañeda NP - Last Filed: 03/01/22 18:41> Referrals: Harjinder Cerna, ROLLED SEAT TRIMMER- [Primary Care Provider] - <Krystal Castañeda NP - Last Filed: 03/01/22 18:41>
[2022-03-01 19:52] LABS: Strep A Nucleic Acid Negative (Negative)
[2022-03-01 20:36] LABS: Influenza A PCR NEGATIVE (Negative); Influenza B PCR NEGATIVE (Negative); Resp Syncy Virus RNA Qual PCR NEGATIVE (Negative); SARS COV2 PCR INHOUSE NEGATIVE (Negative)
[2022-03-01 21:26] VITALS: BP 116/63; PULSE 71; RESP 18; TEMP -13.2; TEMP 8.2; O2SAT 97
--- NOTE | 2022-03-01 23:12 | ECG_ITS ---
Test Reason : neck pain Blood Pressure : / mmHG Vent. Rate : 058 BPM Atrial Rate : 058 BPM P-R Int : 154 ms QRS Dur : 082 ms QT Int : 404 ms P-R-T Axes : 010 002 027 degrees QTc Int : 396 ms Sinus bradycardia Otherwise normal ECG When compared with ECG of 30-SEP-2018 18:15, No significant change was found Referred By: Izabella Pace Electronically Signed By:JANET ZACARIAS MD
[2022-03-01 23:54] LABS: MANUAL DIFF FLAG NO
[2022-03-01 23:56] LABS: Basophils Absolute Auto 0.1 X10*3/uL (0.0-0.2); Basophils Percent Auto 0.7 % (0-2); Eosinophils Absolute Auto 0.1 X10*3/uL (0.0-0.4); Eosinophils Percent Auto 1.3 % (0-4); Hematocrit 39.5 % (37.0-47.0); Hemoglobin 12.9 g/dl (12.0-16.0); Imm Gran Abs Auto 0.02 X10*3/uL (0.00-0.03); Imm Gran Pct Auto 0.2 % (0.0-0.4); Lymphocytes Absolute Auto 2.1 X10*3/uL (1.2-4.9); Lymphocytes Percent Auto 23.9 % (20-40); Mean Corpuscular HGB Conc 32.7 g/dl (31.0-35.0); Mean Corpuscular Hemoglobin 29.6 pg (27.0-33.0); Mean Corpuscular Volume 90.6 fL (80.0-98.0); Mean Platelet Volume 10.1 fL (9.4-12.3); Monocytes Absolute Auto 0.8 X10*3/uL (0.1-1.2); Monocytes Percent Auto 8.7 % (2-11); Neutrophils Absolute Auto 5.7 x10*3/uL (2.0-8.3); Neutrophils Percent Auto 65.2 % (45-73); Platelet Count 220 X10*3/uL (160-400); Red Blood Count 4.36 X10*6/uL (4.20-5.50); Red Cell Distribution Width 12.3 % (11.0-16.0); White Blood Count 8.8 X10*3/uL (4.8-10.8)
[2022-03-02 00:17] LABS: Troponin-I High Sensitivity < 3.5 ng/L (<3.5-17.0)
[2022-03-02 00:19] LABS: Anion Gap 12 (12-20); Blood Urea Nitrogen 15 mg/dL (9-16); Calcium 9.7 mg/dL (8.4-10.2); Carbon Dioxide 32 mmol/L (22-29); Chloride 98 mmol/L (96-108); Creatinine Clr Calc Pharmacy 67.6; Estimated Glomerular Filt Rate > 60; Glucose Random 123 mg/dL (60-115); Potassium 3.9 mmol/L (3.3-5.1); Sodium 138 mmol/L (135-145)
== END 2022-03-02 01:19 | disposition home or self-care (01) ==
PROVIDERS: Nurse Practitioner Family; Emergency Provider Emergency Medicine; PCP Nurse Practitioner Family
DX: B34.9 Viral infection, unspecified (principal); M54.2 Cervicalgia; Z20.828 Contact with and (suspected) exposure to other viral communicable diseases; I10 Essential (primary) hypertension; E78.5 Hyperlipidemia, unspecified; F17.210 Nicotine dependence, cigarettes, uncomplicated; Z79.02 Long term (current) use of antithrombotics/antiplatelets; Z79.82 Long term (current) use of aspirin; Z79.899 Other long term (current) drug therapy; Z20.822 Contact with and (suspected) exposure to COVID-19
CPT/HCPCS: 0241U; 36415; 71046; 76536; 80048; 84484; 85025; 87651; 93005; 99284

== ENCOUNTER 2022-03-16 09:19 | Outpatient (REF) | payer MEDICARE, MEDICAID, SELFPAY ==
[2022-03-16 11:27] LABS: MANUAL DIFF FLAG NO
[2022-03-16 11:50] LABS: Basophils Percent Auto 0.1 % (0-2); Hematocrit 40.4 % (37.0-47.0); Hemoglobin 13.3 g/dl (12.0-16.0); Imm Gran Abs Auto 0.03 X10*3/uL (0.00-0.03); Imm Gran Pct Auto 0.3 % (0.0-0.4); Lymphocytes Absolute Auto 1.2 X10*3/uL (1.2-4.9); Lymphocytes Percent Auto 13.9 % (20-40); Mean Corpuscular HGB Conc 32.9 g/dl (31.0-35.0); Mean Corpuscular Hemoglobin 29.8 pg (27.0-33.0); Mean Corpuscular Volume 90.4 fL (80.0-98.0); Mean Platelet Volume 11.2 fL (9.4-12.3); Monocytes Absolute Auto 0.6 X10*3/uL (0.1-1.2); Monocytes Percent Auto 6.9 % (2-11); Neutrophils Percent Auto 78.8 % (45-73); Platelet Count 226 X10*3/uL (160-400); Red Blood Count 4.47 X10*6/uL (4.20-5.50); Red Cell Distribution Width 12.5 % (11.0-16.0); White Blood Count 8.9 X10*3/uL (4.8-10.8)
[2022-03-16 12:13] LABS: Alanine Aminotransferase 39 U/L (0-31); Albumin Level 4.1 g/dL (3.5-5.0); Alkaline Phosphatase 51 U/L (39-117); Anion Gap 14 (12-20); Aspartate Amino Transferase 20 U/L (5-31); Bilirubin Total 0.9 mg/dL (0.0-1.0); Blood Urea Nitrogen 17 mg/dL (9-16); Calcium 9.4 mg/dL (8.4-10.2); Carbon Dioxide 26 mmol/L (22-29); Chloride 104 mmol/L (96-108); Estimated Glomerular Filt Rate > 60; Glucose Random 122 mg/dL (60-115); Iron 92 mcg/dL (30-160); Percent Iron Saturation 35 % (15-50); Potassium 3.8 mmol/L (3.3-5.1); Sodium 140 mmol/L (135-145); Total Iron Binding Capacity 264 mcg/dL (228-428); Total Protein 6.6 g/dL (6.5-8.0); Unsaturated Iron Binding 172 ug/dL
[2022-03-16 12:19] LABS: Ferritin 129 ng/mL (10-250); TSH reflex Free T4 0.14 uIU/mL (0.32-4.0)
[2022-03-16 12:30] LABS: Vitamin B12 488 pg/mL (200-900)
== END 2022-03-16 09:20 | disposition home or self-care (01) ==
LOC: HO.HMGCLDS 09:19
PROVIDERS: PCP Nurse Practitioner Family; Visit Provider Nurse Practitioner Family
DX: R53.83 Other fatigue (principal)
CPT/HCPCS: 36415; 80053; 82607; 82728; 83540; 84439; 84443; 85025

== ENCOUNTER 2022-03-22 11:24 | Outpatient (REF) | payer MEDICARE, MEDICAID, SELFPAY ==
[2022-03-27 06:24] LABS: HPV mRNA E6/E7 rflx Not Detected (Not Detected)
== END 2022-03-22 11:25 | disposition home or self-care (01) ==
LOC: HO.LNP 11:24
PROVIDERS: PCP Nurse Practitioner Family; Visit Provider Advanced Practice Midwife
DX: Z01.419 Encounter for gynecological examination (general) (routine) without abnormal findings (principal); F32.A Depression, unspecified; Z63.4 Disappearance and death of family member
CPT/HCPCS: 87624; 88142

== ENCOUNTER → 2022-04-02 08:02 | Outpatient (BNVA) | payer MEDICARE, MEDICAID, SELFPAY | PROVIDERS: PCP Nurse Practitioner Family; Visit Provider Internal Medicine | DX: E04.1 Nontoxic single thyroid nodule (principal); E05.90 Thyrotoxicosis, unspecified without thyrotoxic crisis or storm | CPT/HCPCS: 99202 ==

== ENCOUNTER 2022-04-06 11:28 | Outpatient (REF) | payer MEDICARE, MEDICAID, SELFPAY | END 2022-04-06 11:29 | disposition home or self-care (01) | LOC: HO.LAB 11:28 | PROVIDERS: PCP Nurse Practitioner Family; Visit Provider Internal Medicine | DX: Z13.89 Encounter for screening for other disorder (principal) ==

== ENCOUNTER 2022-04-17 08:31 | Outpatient (REF) | payer MEDICARE, MEDICAID, SELFPAY ==
[2022-04-17 10:32] LABS: Free T4 (Free Thyroxine) 0.94 ng/dL (0.71-1.85); Thyroid Stimulating Hormone 0.78 uIU/mL (0.32-4.0)
[2022-04-17 10:46] LABS: Cortisol Random 11.8 ug/dL
[2022-04-19 09:33] LABS: Triiodothyronine T3 Total 137 ng/dL (76-181)
[2022-04-19 21:44] LABS: Thyroglobulin Antibodies <1 IU/mL (< or = 1); Thyroid Peroxidase Antibodies 23 IU/mL (<9)
[2022-04-21 13:48] LABS: Thyrotropin Receptor Antibody <1.00 IU/L (<=2.00)
[2022-04-21 15:33] LABS: Adrenocorticotropic Hormone 19 pg/mL (6-50)
[2022-04-23 15:37] LABS: Thyroid Stimulating Immunoglob <89 % baseline (<140)
[2022-04-25 12:29] LABS: Dexamethasone <20 ng/dL
== END 2022-04-17 08:32 | disposition home or self-care (01) ==
LOC: HO.LAB 08:31
PROVIDERS: PCP Nurse Practitioner Family; Visit Provider Internal Medicine
DX: E05.90 Thyrotoxicosis, unspecified without thyrotoxic crisis or storm (principal); M54.2 Cervicalgia
CPT/HCPCS: 36415; 80299; 82024; 82533; 83520; 84439; 84443; 84445; 84480; 86376; 86800

== ENCOUNTER 2022-07-12 08:52 | Outpatient (REF) | payer OTHER, MEDICAID, SELFPAY ==
--- NOTE | 2022-07-12 09:27 | PM.OP ---
Brief Operative Note Date of Service: 07/12/22 Pre-op diagnosis: Multinodular Thyroid Procedure: This is doctor Cornelia Neal. This is an ultrasound-guided fine-needle aspiration report. Indication: Multinodular Thyroid Porcedure: Procedure was explained to the patient. Alternatives, the risk and benefits were discussed. Written consent was obtained. A time-out was also obtained. After sterile preparation, 1 ml of 1% lidocaine solution was applied subcutaneously for anesthetic effect. Then Fine-needle aspiration of a left lower pole 2.0 cm thyroid nodule was performed using direct ultrasound guidance to confirm accurate needle placement. Three aspirations were made using 27 gauge needles. Samples were submitted for cytology. One pass was dedicated for [employer] Gene sequencing lozenge maker helper testing. The patient tolerated the procedure well. Aftercare instructions were provided. Impression: Uncomplicated fine needle aspiration biopsy of a left lower pole 2.0 cm thyroid nodule under ultrasound guidance. Surgeon: Cornelia Neal, DO Was an Scutcher Tender used for this Procedure?: No Estimated blood loss (mL): 0
[2022-07-12] MEDS: Lidocaine HCl 1 % MPF 5 ML VIAL SUBCUT (09:33)
== END 2022-07-12 08:53 | disposition home or self-care (01) ==
LOC: HO.US 08:52
PROVIDERS: PCP Nurse Practitioner Family; Visit Provider Internal Medicine
DX: E04.2 Nontoxic multinodular goiter (principal)
CPT/HCPCS: 10005; 88172; 88173; 88177

== ENCOUNTER → 2022-07-26 13:07 | Outpatient (BNVA) | payer OTHER, MEDICAID, SELFPAY | PROVIDERS: PCP Nurse Practitioner Family; Visit Provider Internal Medicine | DX: E04.1 Nontoxic single thyroid nodule (principal); E05.90 Thyrotoxicosis, unspecified without thyrotoxic crisis or storm | CPT/HCPCS: 99212 ==

== ENCOUNTER 2022-08-28 09:22 | Outpatient (REF) | payer OTHER, MEDICAID, SELFPAY ==
--- NOTE | ~2022-08-28 | MM_ITS ---
EXAMINATION: MM SCREENING DIGITAL BREAST TOMOSYNTHESIS, BILATERAL CLINICAL INFORMATION: Screening. Asymptomatic. The lifetime risk of breast cancer based on the Tyrer-Cuzick Model is 5%. COMPARISON: Mammography: 07/27/2021, 07/25/2020, 04/01/2017, 11/17/2015 TECHNIQUE: Digital breast tomosynthesis is performed in both the craniocaudal and mediolateral oblique views along with computer-aided detection (CAD). Synthesized 2D images are generated from the tomosynthesis. FINDINGS: There are scattered areas of fibroglandular density (ACR BI-RADS breast composition Category b). There is a fibronodular parenchymal pattern similar to prior exams. No architectural abnormality. Minor waxing and waning nodularity lateral retroareolar left breast. No developing density. There are no significant masses, abnormal calcifications, or other abnormalities. The axilla and skin contours are unremarkable. MM/MM tomosynthesis screening BI IMPRESSION: No significant changes from prior studies. ASSESSMENT: BI-RADS 2: Benign RECOMMENDATION: Routine annual mammography screening. This patient's information was entered into a reminder system with a target due date for their next mammogram.
== END 2022-08-28 09:23 | disposition home or self-care (01) ==
LOC: HO.MAMMO 09:22
PROVIDERS: PCP Nurse Practitioner Family; Visit Provider Nurse Practitioner Family
DX: Z12.31 Encounter for screening mammogram for malignant neoplasm of breast (principal)
CPT/HCPCS: 77063; 77067

== ENCOUNTER 2022-11-01 10:23 | Outpatient (AMB) | payer OTHER, MEDICAID, SELFPAY ==
--- NOTE | 2022-11-01 10:27 | MHC.PC.OV ---
Vital Signs 11/01/22 10:28 Height 5 ft 7 in Weight 175 lb BMI 27.4 BP 132/86 Blood Pressure Location Rt brachial Position Sitting Pulse 80 Pulse Source Pulse Oximeter Pulse Oximetry (%) 94 Oxygen Delivery Method Room Air Intake Visit Reasons: PE Allergies Wellbutrin Adverse Reaction (Unknown, Uncoded 11/01/22 10:31) worsening mood, dizziness Medication List - Last Reconciled 11/01/22 by JERONIMO Mckeon amlodipine 2.5 mg PO DAILY 90 days aspirin (Adult Low Dose Aspirin) 81 mg PO DAILY 90 days cholecalciferol (vitamin D3) 25 mcg PO DAILY ezetimibe 10 mg PO DAILY 90 days Gait belt daily use for lumbar support ibuprofen 600 mg PO Q8H PRN icosapent ethyl (Vascepa) 2 grams (4 x 0.5 gram) PO BID 30 days lisinopril-hydrochlorothiazide 20-25 mg 1 tab PO DAILY metoprolol succinate ER 25 mg PO DAILY 90 days multivitamin (Daily Multi-Vitamin tablet) 1 tab PO DAILY 90 days nicotine (polacrilex) 4 mg buccal Q6H PRN nicotine (polacrilex) 4 mg buccal Q6H PRN 20 days omega-3 acid ethyl esters 1 cap PO BID rosuvastatin 40 mg PO DAILY 90 days [SI joint Belt As directed] Tobacco use date assessed: 11/01/22 Fall risk assessment: No Falls in past year Last assessed Fall Risk: 11/01/22 Dental Screening Dental Screen Date: 11/01/22 Did you have a dental visit in the last 12 months?: No Did you have a dental problem in the last 6 months where you did not have access to dental care?: No Was dental information given to patient?: No HPI PE HPI Details Pt is here for a PE. Will order labs. 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 Mammo is up to date. Bone density is up to date. Due for colon screen, will refer to GI. Pt follows up with endo due to thyroid nodule and hyperthyroid. Pt c/o right hip pain. She has not had any recent imaging of her hip. Will order xr. Pt follows up with vascular for yearly AAA examinations. PT part of our LDCT scan program, will see when her next appt is scheduled for. [facility] Medical History AAA (abdominal aortic aneurysm) Back pain Dyslipidemia Elevated fasting glucose Elevated liver enzymes Elevated systolic blood pressure reading with diagnosis of hypertension History of COVID-19 Hyperthyroidism Left thyroid nodule Liver lesion, right lobe Migraines Parotiditis Postmenopausal Tubular adenoma of colon (~2013) Surgical History History of colonoscopy Family History Mother Thyroid cancer Daughter No problems noted. Father Stroke Social History Housing: House Alcohol intake: current Alcohol intake frequency: holidays/special occasions only Alcohol type: wine Patient Tobacco Use Status: Current someday Tobacco user Tobacco use type: Cigarette Cigarettes Per Day: 1 Years Smoked: (onset 19yo, 1ppd x 47yrs, 40+PYH) e-Cigarette/Vaping Use: Never Used Second Hand Smoke Exposure: Yes service: No Current occupational status: retired Gender identity: Female Cognitive needs: No Hearing needs: No Vision needs: No Questionnaire Thrive Questionnaire Date Thrive assessed: 03/15/22 MODESTA-7 AMB Questionnaire MODESTA-7 Date MODESTA - 7 assessed: 03/15/22 Source: Developed by Drs. Faraz Brown, Deidre Hopson, Shaquille Ocampo and colleagues, with an educational astrid from [employer]. Review of Systems Const Denies chills and Denies fever(s) Eyes Denies blurry vision ENT Denies vertigo, Denies dizziness and Denies sore throat Card Denies chest pain at rest, Denies chest pain with activity, Denies diaphoresis, Denies dyspnea and Denies dyspnea on exertion Resp Denies cough, Denies dyspnea, Denies dyspnea on exertion and Denies wheezing GI Denies abdominal pain, Denies melena, Denies hematochezia, Denies constipation, Denies diarrhea and Denies loose stools Denies hematuria Musc Denies numbness and Denies tingling Skin/Breast Denies lesions Neuro Denies vertigo, Denies dizziness, Denies numbness and Denies tingling Psych Denies anxiety, Denies depression, Denies homicidal ideation, Denies suicidal ideation and Denies other (substance abuse) Aller/Immun Denies wheezing Physical exam (Primary Care) Vital Signs: Last Vital Signs Pulse 80 11/01/22 10:28 BP 132/86 11/01/22 10:28 Pulse Ox 94 11/01/22 10:28 Oxygen Delivery Method Room Air 11/01/22 10:28 BMI result Body Mass Index 27.4 Tobacco/Smoking Status: Tobacco use Status Tobacco use date assessed 11/01/22 11/01/22 10:36 Patient Tobacco Use Status Current someday Tobacco 11/01/22 10:36 Tobacco use type Cigarette 11/01/22 10:30 e-Cigarette/Vaping Use Never Used 11/01/22 10:30 Thrive Assessment: Date of Thrive Assessment Date Thrive assessed 03/15/22 11/01/22 10:30 Const General: cooperative Nutritional Appearance: well nourished Orientation/consciousness: patient oriented x3 HENMT Head: Yes normal to inspection, Yes normocephalic and Yes atraumatic Ears: TM's normal bilaterally Eyes General: appearance normal, both eyes and all related structures Alignment and Position: alignment normal and position normal Neck Neck: Yes normal visual inspection and Yes no lymphadenopathy Thyroid: Thyroid normal Resp Effort & Inspection: normal respiratory effort Auscultation: clear to auscultation bilaterally Cardio Rate: regular rate Rhythm: regular rhythm Heart sounds: S1 normal heart sound present, S2 normal heart sound present and no murmurs GI Palpation (GI): Soft to palpation and nontender Auscultation: normal bowel sounds Skin Rashes: no rashes Neuro General: patient oriented x3, moves all extremities, no focal motor deficits and deep tendon reflexes 2+ bilaterally Romberg Test: Negative Extrem Other: right hip pain with abduction and adduction, no popping or clicking, pain with leg lifts, hip extension and flexion, + fabers test Psych Appearance: grossly normal Mental Status: mental status grossly normal Speech and movement: Normal speech and movement present Affect: normal affect Attitude: cooperative Thought process: Normal thought process present Thought content: Normal thought content present Insight: Good insight present (Psych) Judgement: Good judgement present (Psych) Assessment and Plan Assessment & Plan (1) Physical exam: Code(s): Z00.00 - Encounter for general adult medical examination without abnormal findings Plan: Labs ordered (2) Postmenopausal: Comment: (normal bone density 11/2021 - normal mammo 07/2021) Code(s): Z78.0 - Asymptomatic menopausal state Plan: Vitamin D ordered (3) Chronic hip pain: Code(s): M25.559 - Pain in unspecified hip; G89.29 - Other chronic pain Plan: XR ordered Plan The patient agreed to the use of a medical office specialist for this encounter. Scribed for PROSPER Carcamo-[facility] by Karishma Gatica medical office specialist, on 11/01/2022 at 11:00 EST. Orders: Orders Comprehensive [place]. Panel Fast Today Z00.00 - Encounter for general adult medical examination without abnormal findings Lipid Panel Today Z00.00 - Encounter for general adult medical examination without abnormal findings TSH reflex Free T4 Today Z00.00 - Encounter for general adult medical examination without abnormal findings Complete Blood Count Auto Diff Today Z00.00 - Encounter for general adult medical examination without abnormal findings UA CC w/rflx Micro + Cult Today Z00.00 - Encounter for general adult medical examination without abnormal findings Vitamin D 25-OH Total Today Z78.0 - Asymptomatic menopausal state XR hip RT min 2V Today G89.29 - Other chronic pain, M25.559 - Pain in unspecified hip Referrals Gastroenterology Referral Z12.11 - Encounter for screening for malignant neoplasm of colon Medications: Refilled metoprolol succinate ER 25 mg PO DAILY 90 days 90 tabs 1RF I10 - Essential (primary) hypertension nicotine (polacrilex) 4 mg buccal Q6H 20 days PRN 81 ea 0RF nicotine cravings Coding Level of Care Code Est Pt Prev Care >65y(74167) Diagnoses Physical exam Z00.00 Postmenopausal Z78.0 Chronic hip pain M25.559; G89.29
[2022-11-01 10:28] VITALS: BP 132/86; PULSE 80; O2SAT 94; BMI 27.4
== END 2022-11-01 11:48 | disposition home or self-care (01) ==
PROVIDERS: PCP Nurse Practitioner Family; Visit Provider Nurse Practitioner Family
DX: Z00.00 Encounter for general adult medical examination without abnormal findings (principal); Z78.0 Asymptomatic menopausal state; M25.551 Pain in right hip; G89.29 Other chronic pain
CPT/HCPCS: 99397

== ENCOUNTER 2022-11-01 13:21 | Outpatient (REF) | payer OTHER, MEDICAID, SELFPAY ==
--- NOTE | ~2022-11-01 | XR_ITS ---
EXAMINATION: XR HIP, RIGHT CLINICAL INFORMATION: Pain in hip COMPARISON: Pelvis CT 09/30/2018 TECHNIQUE: Two views of the right hip. FINDINGS: No fracture. Alignment is anatomic. Hip joint space is maintained. Soft tissues are unremarkable. XR/XR hip RT min 2V IMPRESSION: Normal right hip.
== END 2022-11-01 13:22 | disposition home or self-care (01) ==
LOC: HO.HMGCX 13:21
PROVIDERS: PCP Nurse Practitioner Family; Visit Provider Nurse Practitioner Family
DX: M25.551 Pain in right hip (principal)
CPT/HCPCS: 73502

== ENCOUNTER 2022-12-12 14:49 | Emergency (ER) | payer OTHER, MEDICAID, SELFPAY ==
--- NOTE | ~2022-12-12 | XR_ITS ---
EXAMINATION: XR CHEST CLINICAL INFORMATION: Chest pain COMPARISON: Chest x-ray 03/01/2022 TECHNIQUE: 2 views of the chest were obtained. FINDINGS: Cardiac silhouette is normal in size. The lungs are well aerated. Minimal biapical architectural distortion. No lobar consolidation. No pleural effusion or pneumothorax. Moderate diffuse degenerative changes of the spine. XR/XR chest 2V IMPRESSION: No acute pulmonary pathology.
--- NOTE | ~2022-12-12 | CT_ITS ---
EXAMINATION: CT ANGIOGRAM OF THE CHEST WITH AND WITHOUT CONTRAST (CT PULMONARY ANGIOGRAM FOR PE) CLINICAL INFORMATION: Reason for Exam R./O pe COMPARISON: Previous chest x-ray from earlier today and chest CT most recent January 2022 TECHNIQUE: Prior to contrast administration, noncontrast localization images were obtained. Subsequently, multidetector volumetric imaging was performed from the thoracic inlet to below the diaphragms following the administration of 5 mL Omnipaque 350 intravenous contrast. No contrast reaction reported Sagittal, coronal, and MIP oblique sagittal reformatted images were obtained on the CT workstation, uploaded to PACS, and reviewed. This CT examination was performed using dose optimization techniques as appropriate, variously including the following: *Automated exposure control *Adjustment of mA and/or kV according to patient size (this includes techniques or standardized protocols for targeted exams where dose is matched to indication/reason for exam; i.e. extremities or head) *Use of iterative reconstruction technique Total exam dose-length product 3 7 mGy-cm FINDINGS: QUALITY OF STUDY/CONTRAST BOLUS: Satisfactory. PULMONARY ARTERIES: No pulmonary emboli. THORACIC AORTA: No aneurysm. LUNG: Mild paraseptal emphysema. Stable microcystic change in the right upper lobe axial image 89 series 6. Stable 3 mm right lower lobe nodule axial image 157 series 6. Stable 3 mm right lower lobe nodule axial image 226 series 6. PLEURA: No pleural effusion or pneumothorax. MEDIASTINUM: Normal heart size. No pericardial effusion. No hilar or mediastinal lymphadenopathy. No evidence of septal bowing or right heart strain. CORONARY ARTERY CALCIFICATION: None visualized on this study. CHEST WALL/AXILLA: No axillary or internal mammary lymphadenopathy. OSSEOUS STRUCTURES: No acute or suspicious osseous abnormality. Degenerative changes of the spine. UPPER ABDOMEN: Unremarkable. No reflux of contrast into the hepatic veins to suggest elevated right heart pressures. CT/CT angio chest PE protocol IMPRESSION: No evidence of pulmonary embolism. Emphysema. Stable pulmonary nodules. Chest CT follow-up as per lung cancer screening protocol VTE: negative
--- NOTE | 2022-12-12 14:51 | ECG_ITS ---
Test Reason : CHEST PAIN Blood Pressure : / mmHG Vent. Rate : 060 BPM Atrial Rate : 060 BPM P-R Int : 158 ms QRS Dur : 092 ms QT Int : 406 ms P-R-T Axes : 040 -02 037 degrees QTc Int : 406 ms Normal sinus rhythm Normal ECG When compared with ECG of 01-MAR-2022 23:31, No significant change was found Referred By: Generic ED Physician Electronically Signed By:ADAMA PAT MD
[2022-12-12 15:25] VITALS: BP 144/78; PULSE 63; RESP 18; TEMP 36.9; O2SAT 96; BMI 27.4
--- NOTE | 2022-12-12 15:26 | ED.GENADULT ---
HPI - General Adult General Chief complaint: Chest Pain Stated complaint: Chest Pain Radiating to L Arm Time Seen by Provider: 12/12/22 20:33 Related Data Home Medications Medication Instructions Recorded Confirmed cholecalciferol (vitamin D3) 25 25 mcg PO DAILY 02/27/22 11/01/22 mcg (1,000 unit) capsule omega-3 acid ethyl esters 1 gram 1 cap PO BID 02/27/22 11/01/22 capsule Previous Rx's Medication Instructions Recorded icosapent ethyl 0.5 gram capsule 2 g (4 x 0.5 gram) PO BID 30 days 11/14/21 (Vascepa) #240 caps ibuprofen 600 mg tablet 600 mg PO Q8H PRN pain #14 tabs 12/23/21 SI joint Belt #1 ea 01/11/22 Gait belt #1 ea 01/15/22 rosuvastatin 40 mg tablet 40 mg PO DAILY 90 days #90 tabs 07/10/22 amlodipine 2.5 mg tablet 2.5 mg PO DAILY 90 days #90 tabs 07/19/22 aspirin 81 mg tablet,delayed 81 mg PO DAILY 90 days #90 tabs 07/19/22 release (Adult Low Dose Aspirin) nicotine (polacrilex) 4 mg buccal 4 mg buccal Q6H PRN nicotine 07/23/22 lozenge cravings #72 ea ezetimibe 10 mg tablet 10 mg PO DAILY 90 days #90 tabs 08/09/22 lisinopril 20 1 tab PO DAILY #90 tabs 08/16/22 mg-hydrochlorothiazide 25 mg tablet metoprolol succinate 25 mg 25 mg PO DAILY 90 days #90 tabs 11/01/22 tablet,extended release 24 hr nicotine (polacrilex) 4 mg buccal 4 mg buccal Q6H PRN nicotine 11/01/22 mini lozenge cravings 20 days #81 ea multivitamin (Daily Multi-Vitamin 1 tab PO DAILY 90 days #90 tabs 11/13/22 tablet) Allergies Allergy/AdvReac Type Severity Reaction Status Date / Time Wellbutrin AdvReac Unknown worsening Uncoded 11/01/22 10:31 mood, dizziness PMFSH Past Medical History Medical History Hyperthyroidism Left thyroid nodule Liver lesion, right lobe Tubular adenoma of colon (~2013) History of COVID-19 Elevated liver enzymes Postmenopausal Parotiditis Elevated systolic blood pressure reading with diagnosis of hypertension AAA (abdominal aortic aneurysm) Migraines Elevated fasting glucose Dyslipidemia Back pain Surgical History History of colonoscopy Family History Family History Mother Thyroid cancer Daughter No problems noted. Father Stroke Social History Social History Housing: House Alcohol intake: current Alcohol intake frequency: holidays/special occasions only Alcohol type: wine Patient Tobacco Use Status: Current someday Tobacco user Tobacco use type: Cigarette Cigarettes Per Day: 1 Years Smoked: (onset 19yo, 1ppd x 47yrs, 40+PYH) Smoked in Last 30 Days: Yes e-Cigarette/Vaping Use: Never Used Second Hand Smoke Exposure: Yes Advance Directives: No Advance Directives Information Provided: Yes service: No Current occupational status: retired Gender identity: Female Cognitive needs: No Hearing needs: No Vision needs: No Physical Exam ED Vital Signs: Vital Signs - 24 hr 12/12/22 15:25 12/12/22 19:46 Temperature 98.4 F 97.7 F Pulse Rate 63 63 Respiratory Rate 18 18 Blood Pressure 144/78 H 144/78 H Pulse Oximetry 96 99 Oxygen Delivery Method Room Air Room Air BMI result Body Mass Index 27.4 Course Course Course Narrative: This is an RME: Additional HPI, ROS, PE not included below will be deferred to primary provider. This is a [id number]-female, with a hx of hypertension, hyperlipidemia, AAA, presenting to the emergency department with a complaint of left arm pain/numbness x 2 days. Patient reports that this has been worsening and goes into her side of her neck. Denies any chest pain. No shortness of breath. Vital signs stable. Patient reports that her daughter one year ago and states that her birthday was yesterday. She has been under a significant amount of stress. Plan: Labs, EKG, chest x-ray Reevaluation(s) Reevaluation #1: Patient signed out to me by Dr. Jones to follow-up CT angio of chest in this 67-year-old female and patient complaints of chest pain for 2 days with involvement of left arm. Serial troponins negative and CT angio with PE protocol is negative for PE and instead identifies underlying emphysema and stable pulmonary nodules. She is otherwise discharged home with instructions follow-up with primary care doctor. Time: 22:45 Medications Administered Discontinued Medications Generic Name Dose Route Start Last Admin Trade Name Adonisq PRN Reason Stop Dose Admin Iohexol 100 ml 12/12/22 21:33 12/12/22 21:33 Iohexol 350 Mg/Ml 100 Ml Infus..Btl IV 12/12/22 21:34 65 ml ONCE ONE Administration Medical Decision Making Lab Data 12/12/22 16:46 12/12/22 16:46 Labs: Lab Results 12/12/22 12/12/22 Range/Units 16:46 20:19 WBC 6.5 (4.8-10.8) X10*3/uL RBC 5.12 (4.20-5.50) X10*6/uL Hgb 14.9 (12.0-16.0) g/dl Hct 45.0 (37.0-47.0) % MCV 87.9 (80.0-98.0) fL MCH 29.1 (27.0-33.0) pg MCHC 33.1 (31.0-35.0) g/dl RDW 12.6 (11.0-16.0) % Plt Count 200 (160-400) X10*3/uL MPV 11.1 (9.4-12.3) fL Immature Gran % (Auto) 0.3 (0.0-0.4) % Neut % (Auto) 67.6 (45-73) % Lymph % (Auto) 23.3 (20-40) % [place] % (Auto) 7.2 (2-11) % Eos % (Auto) 0.8 (0-4) % Baso % (Auto) 0.8 (0-2) % Lymph # (Auto) 1.5 (1.2-4.9) X10*3/uL [place] # (Auto) 0.5 (0.1-1.2) X10*3/uL Eos # (Auto) 0.1 (0.0-0.4) X10*3/uL Baso # (Auto) 0.1 (0.0-0.2) X10*3/uL Abs Immat Gran (auto) 0.02 (0.00-0.03) X10*3/uL Absolute Neuts (auto) 4.4 (2.0-8.3) x10*3/uL Absolute Nucleated RBC 0.000 (0.0-0.012) X10*3/uL Nucleated RBC % (auto) 0.0 (0.0-0.2) /100WBC Sodium 142 (135-145) mmol/L Potassium 3.5 (3.3-5.1) mmol/L Chloride 102 (96-108) mmol/L Carbon Dioxide 27 (22-29) mmol/L Anion Gap 17 (12-20) BUN 17 H (9-16) mg/dL Creatinine 0.84 (0.5-1.4) mg/dL Estim Creat Clear Calc 72.4 Estimated GFR > 60 Random Glucose 113 (60-115) mg/dL Calcium 10.4 H D (8.4-10.2) mg/dL Magnesium 1.8 (1.6-2.6) mg/dL Total Bilirubin 0.6 (0.0-1.0) mg/dL Direct Bilirubin 0.1 (0.0-0.5) mg/dL AST 44 H (5-31) U/L ALT 56 H (0-31) U/L Alkaline Phosphatase 58 (39-117) U/L Troponin I High Sens < 2.7 < 2.7 (<3.5-17.0) ng/L Total Protein 7.8 (6.5-8.0) g/dL Albumin 4.4 (3.5-5.0) g/dL Discharge Plan Discharge Clinical Impression: Chest pain Patient Disposition: Home, Self-Care Instructions: Chest Pain (ED) Additional Instructions: 1. Resume all home medications as prescribed. Your workup today is negative for evidence to suggest a pneumonia or cardiac ischemia. 2. Recommend that you could follow-up with your primary care doctor by calling the office 1st thing in the morning to set up an appointment for re-evaluation and further outpatient management. Return to the ER for any worsening symptoms. Prescriptions: No Action Vascepa 0.5 gram capsule 2 g PO BID 30 Days Qty: 240 0RF (DME) SI joint Belt See Rx Instructions .Route .MEDSUPPLY Qty: 1 0RF Rx Instructions: As directed (DME) Gait belt Misc See Rx Instructions .Route Qty: 1 0RF Rx Instructions: daily use for lumbar support rosuvastatin 40 mg tablet 40 mg PO DAILY 90 Days Qty: 90 1RF aspirin [Adult Low Dose Aspirin] 81 mg tablet,delayed release (DR/EC) 81 mg PO DAILY 90 Days Qty: 90 1RF amlodipine 2.5 mg tablet 2.5 mg PO DAILY 90 Days Qty: 90 1RF nicotine (polacrilex) 4 mg lozenge 4 mg buccal Q6H PRN (Reason: nicotine cravings) Qty: 72 0RF ezetimibe 10 mg tablet 10 mg PO DAILY 90 Days Qty: 90 1RF lisinopril-hydrochlorothiazide 20-25 mg tablet 1 tab PO DAILY Qty: 90 1RF multivitamin [Daily Multi-Vitamin] Tablet 1 tab PO DAILY 90 Days Qty: 90 1RF cholecalciferol (vitamin D3) 25 mcg (1,000 unit) capsule 25 mcg PO DAILY omega-3 acid ethyl esters 1 gram capsule 1 cap PO BID metoprolol succinate 25 mg tablet extended release 24 hr 25 mg PO DAILY 90 Days Qty: 90 1RF nicotine (polacrilex) 4 mg mini lozenge 4 mg buccal Q6H PRN (Reason: nicotine cravings) 20 Days Qty: 81 0RF ibuprofen 600 mg tablet 600 mg PO Q8H PRN (Reason: pain) Qty: 14 0RF Referrals: Harjinder Cerna, [employer] [Primary Care Provider] -
[2022-12-12 16:51] LABS: MANUAL DIFF FLAG NO
[2022-12-12 16:58] LABS: Basophils Absolute Auto 0.1 X10*3/uL (0.0-0.2); Basophils Percent Auto 0.8 % (0-2); Eosinophils Absolute Auto 0.1 X10*3/uL (0.0-0.4); Eosinophils Percent Auto 0.8 % (0-4); Hemoglobin 14.9 g/dl (12.0-16.0); Imm Gran Abs Auto 0.02 X10*3/uL (0.00-0.03); Imm Gran Pct Auto 0.3 % (0.0-0.4); Lymphocytes Absolute Auto 1.5 X10*3/uL (1.2-4.9); Lymphocytes Percent Auto 23.3 % (20-40); Mean Corpuscular HGB Conc 33.1 g/dl (31.0-35.0); Mean Corpuscular Hemoglobin 29.1 pg (27.0-33.0); Mean Corpuscular Volume 87.9 fL (80.0-98.0); Mean Platelet Volume 11.1 fL (9.4-12.3); Monocytes Absolute Auto 0.5 X10*3/uL (0.1-1.2); Monocytes Percent Auto 7.2 % (2-11); Neutrophils Absolute Auto 4.4 x10*3/uL (2.0-8.3); Neutrophils Percent Auto 67.6 % (45-73); Platelet Count 200 X10*3/uL (160-400); Red Blood Count 5.12 X10*6/uL (4.20-5.50); Red Cell Distribution Width 12.6 % (11.0-16.0); White Blood Count 6.5 X10*3/uL (4.8-10.8)
[2022-12-12 17:16] LABS: Alanine Aminotransferase 56 U/L (0-31); Albumin Level 4.4 g/dL (3.5-5.0); Alkaline Phosphatase 58 U/L (39-117); Anion Gap 17 (12-20); Aspartate Amino Transferase 44 U/L (5-31); Bilirubin Direct 0.1 mg/dL (0.0-0.5); Bilirubin Total 0.6 mg/dL (0.0-1.0); Blood Urea Nitrogen 17 mg/dL (9-16); Calcium 10.4 mg/dL (8.4-10.2); Carbon Dioxide 27 mmol/L (22-29); Chloride 102 mmol/L (96-108); Creatinine Clr Calc Pharmacy 72.4; Estimated Glomerular Filt Rate > 60; Glucose Random 113 mg/dL (60-115); Magnesium 1.8 mg/dL (1.6-2.6); Potassium 3.5 mmol/L (3.3-5.1); Sodium 142 mmol/L (135-145); Total Protein 7.8 g/dL (6.5-8.0)
[2022-12-12 17:23] LABS: Troponin-I High Sensitivity < 2.7 ng/L (<3.5-17.0)
[2022-12-12 19:46] VITALS: BP 144/78; PULSE 63; RESP 18; TEMP 36.5; O2SAT 99
--- NOTE | 2022-12-12 20:41 | ED_ITS ---
HPI - Chest Pain General Chief Complaint: Chest Pain Stated Complaint: Chest Pain Radiating to L Arm Time Seen by Provider: 12/12/22 20:33 Source: patient Mode of arrival: ambulatory Limitations: no limitations History of Present Illness HPI narrative: THIS IS 67 YEARS OLD FEMALE WITH COMPLAINT OF CHEST PAIN FOR ABOUT 3 DAYS THE CHEST PAIN RADIATED TO THE LEFT ARM. SHE HAS HISTORY OF HYPERTENSION HYPERCHOLESTEROLEMIA SHE HAS A AAA WHICH A PRIMARY CARE PHYSICIAN HAS BEEN MONITORING. DENIES ANY SHORTNESS OF BREATH ANY FEVER MD complaint: chest pain Onset (ago): day(s) (3) Timing of current episode: episodic Onset: during rest Pain location: substernal Pain radiation: none Quality: aching Exacerbating factors: nothing Risk Factors Coronary artery disease risk factors: hyperlipidemia and hypertension Related Data Home Medications Medication Instructions Recorded Confirmed cholecalciferol (vitamin D3) 25 25 mcg PO DAILY 02/27/22 11/01/22 mcg (1,000 unit) capsule omega-3 acid ethyl esters 1 gram 1 cap PO BID 02/27/22 11/01/22 capsule Previous Rx's Medication Instructions Recorded icosapent ethyl 0.5 gram capsule 2 g (4 x 0.5 gram) PO BID 30 days 11/14/21 (Vascepa) #240 caps ibuprofen 600 mg tablet 600 mg PO Q8H PRN pain #14 tabs 12/23/21 SI joint Belt #1 ea 01/11/22 Gait belt #1 ea 01/15/22 rosuvastatin 40 mg tablet 40 mg PO DAILY 90 days #90 tabs 07/10/22 amlodipine 2.5 mg tablet 2.5 mg PO DAILY 90 days #90 tabs 07/19/22 aspirin 81 mg tablet,delayed 81 mg PO DAILY 90 days #90 tabs 07/19/22 release (Adult Low Dose Aspirin) nicotine (polacrilex) 4 mg buccal 4 mg buccal Q6H PRN nicotine 07/23/22 lozenge cravings #72 ea ezetimibe 10 mg tablet 10 mg PO DAILY 90 days #90 tabs 08/09/22 lisinopril 20 1 tab PO DAILY #90 tabs 08/16/22 mg-hydrochlorothiazide 25 mg tablet metoprolol succinate 25 mg 25 mg PO DAILY 90 days #90 tabs 11/01/22 tablet,extended release 24 hr nicotine (polacrilex) 4 mg buccal 4 mg buccal Q6H PRN nicotine 11/01/22 mini lozenge cravings 20 days #81 ea multivitamin (Daily Multi-Vitamin 1 tab PO DAILY 90 days #90 tabs 11/13/22 tablet) Allergies Allergy/AdvReac Type Severity Reaction Status Date / Time Wellbutrin AdvReac Unknown worsening Uncoded 11/01/22 10:31 mood, dizziness Review of Systems 2 Constitutional: Constitutional: Reports no additional constitutional complaints ENT: Reports system reviewed and no additional complaints, except as documented Cardiovascular: Cardiovascular: Reports no additional cardiovascular complaints Neurologic: Reports system reviewed and no additional complaints, except as documented Psychiatric: Psychiatric: Reports no additional psychiatric complaints PMFSH Past Medical History Medical History Hyperthyroidism Left thyroid nodule Liver lesion, right lobe Tubular adenoma of colon (~2013) History of COVID-19 Elevated liver enzymes Postmenopausal Parotiditis Elevated systolic blood pressure reading with diagnosis of hypertension AAA (abdominal aortic aneurysm) Migraines Elevated fasting glucose Dyslipidemia Back pain Surgical History History of colonoscopy Family History Family History Mother Thyroid cancer Daughter No problems noted. Father Stroke Social History Social History Housing: House Alcohol intake: current Alcohol intake frequency: holidays/special occasions only Alcohol type: wine Patient Tobacco Use Status: Current someday Tobacco user Tobacco use type: Cigarette Cigarettes Per Day: 1 Years Smoked: (onset 19yo, 1ppd x 47yrs, 40+PYH) Smoked in Last 30 Days: Yes e-Cigarette/Vaping Use: Never Used Second Hand Smoke Exposure: Yes Advance Directives: No Advance Directives Information Provided: Yes service: No Current occupational status: retired Gender identity: Female Cognitive needs: No Hearing needs: No Vision needs: No Physical Exam 2 Vital Signs: Vital Signs: Last Vital Signs Temp 97.7 F 12/12/22 19:46 Pulse 63 12/12/22 19:46 Resp 18 12/12/22 19:46 BP 144/78 H 12/12/22 19:46 Pulse Ox 99 12/12/22 19:46 O2 Del Method Room Air 12/12/22 19:46 BMI result Body Mass Index 27.4 Const: General: cooperative Nutritional Appearance: average body habitus Orientation/consciousness: patient oriented x3 HEENT: Head: Yes normal to inspection Ears: hearing grossly normal bilaterally General nose exam: Normal external nose present Face and sinus: Yes normal facial exam Mouth: Normal oral and palatal mucosa present Neck: Neck: Yes normal visual inspection and Yes full ROM Chest: Chest palpation & inspection: normal inspection of the chest Resp: Effort & Inspection: normal respiratory effort Auscultation: clear to auscultation bilaterally Cardio: Jugular venous distension: no JVD Rate: regular rate Rhythm: r egular rhythm GI: Inspection: Yes normal to inspection Palpation (GI): Soft to palpation, not firm and nontender Auscultation: normal bowel sounds Skin: General skin exam: no rashes or lesions noted and elasticity normal Neuro: General: patient oriented x3 Cranial nerves: Yes CN's II-XII intact bilaterally Course Reevaluation(s) Reevaluation #1: We are waiting for the CT chest assuming his negative anticipate discharge home troponin x2 negative,Signed out to Dr Love Time: 22:16 Medications Administered Discontinued Medications Generic Name Dose Route Start Last Admin Trade Name Freq PRN Reason Stop Dose Admin Iohexol 100 ml 12/12/22 21:33 12/12/22 21:33 Iohexol 350 Mg/Ml 100 Ml Infus..Btl IV 12/12/22 21:34 65 ml ONCE ONE Administration Medical Decision Making Medical Decision Making [facility] Narrative: Patient presented with chest pain for 3 days we get a chest x-ray labs EKG and reassess Differential Diagnosis Differential Diagnoses: The differential diagnosis associated with the presentation includes Acute coronary syndrome/pericarditis/pneumonia Admission/Observation Consideration of admission/observation: Escalation of care including admission/observation considered Lab Data [facility] Lab Attestation statement: I reviewed the patient's lab results. 12/12/22 16:46 12/12/22 16:46 Labs: Lab Results 12/12/22 12/12/22 Range/Units 16:46 20:19 WBC 6.5 (4.8-10.8) X10*3/uL RBC 5.12 (4.20-5.50) X10*6/uL Hgb 14.9 (12.0-16.0) g/dl Hct 45.0 (37.0-47.0) % MCV 87.9 (80.0-98.0) fL MCH 29.1 (27.0-33.0) pg MCHC 33.1 (31.0-35.0) g/dl RDW 12.6 (11.0-16.0) % Plt Count 200 (160-400) X10*3/uL MPV 11.1 (9.4-12.3) fL Immature Gran % (Auto) 0.3 (0.0-0.4) % Neut % (Auto) 67.6 (45-73) % Lymph % (Auto) 23.3 (20-40) % [place] % (Auto) 7.2 (2-11) % Eos % (Auto) 0.8 (0-4) % Baso % (Auto) 0.8 (0-2) % Lymph # (Auto) 1.5 (1.2-4.9) X10*3/uL [place] # (Auto) 0.5 (0.1-1.2) X10*3/uL Eos # (Auto) 0.1 (0.0-0.4) X10*3/uL Baso # (Auto) 0.1 (0.0-0.2) X10*3/uL Abs Immat Gran (auto) 0.02 (0.00-0.03) X10*3/uL Absolute Neuts (auto) 4.4 (2.0-8.3) x10*3/uL Absolute Nucleated RBC 0.000 (0.0-0.012) X10*3/uL Nucleated RBC % (auto) 0.0 (0.0-0.2) /100WBC Sodium 142 (135-145) mmol/L Potassium 3.5 (3.3-5.1) mmol/L Chloride 102 (96-108) mmol/L Carbon Dioxide 27 (22-29) mmol/L Anion Gap 17 (12-20) BUN 17 H (9-16) mg/dL Creatinine 0.84 (0.5-1.4) mg/dL Estim Creat Clear Calc 72.4 Estimated GFR > 60 Random Glucose 113 (60-115) mg/dL Calcium 10.4 H D (8.4-10.2) mg/dL Magnesium 1.8 (1.6-2.6) mg/dL Total Bilirubin 0.6 (0.0-1.0) mg/dL Direct Bilirubin 0.1 (0.0-0.5) mg/dL AST 44 H (5-31) U/L ALT 56 H (0-31) U/L Alkaline Phosphatase 58 (39-117) U/L Troponin I High Sens < 2.7 < 2.7 (<3.5-17.0) ng/L Total Protein 7.8 (6.5-8.0) g/dL Albumin 4.4 (3.5-5.0) g/dL Independent Interpretation I performed an independent interpretation of an: EKG Interpretation: Normal sinus rhythm rate [address]-T changes Discharge Plan Discharge Clinical Impression: Chest pain Patient Disposition: Still a Patient Prescriptions: No Action Vascepa 0.5 gram capsule 2 g PO BID 30 Days Qty: 240 0RF (DME) SI joint Belt See Rx Instructions .Route .MEDSUPPLY Qty: 1 0RF Rx Instructions: As directed (DME) Gait belt Misc See Rx Instructions .Route Qty: 1 0RF Rx Instructions: daily use for lumbar support rosuvastatin 40 mg tablet 40 mg PO DAILY 90 Days Qty: 90 1RF aspirin [Adult Low Dose Aspirin] 81 mg tablet,delayed release (DR/EC) 81 mg PO DAILY 90 Days Qty: 90 1RF amlodipine 2.5 mg tablet 2.5 mg PO DAILY 90 Days Qty: 90 1RF nicotine (polacrilex) 4 mg lozenge 4 mg buccal Q6H PRN (Reason: nicotine cravings) Qty: 72 0RF ezetimibe 10 mg tablet 10 mg PO DAILY 90 Days Qty: 90 1RF lisinopril-hydrochlorothiazide 20-25 mg tablet 1 tab PO DAILY Qty: 90 1RF multivitamin [Daily Multi-Vitamin] Tablet 1 tab PO DAILY 90 Days Qty: 90 1RF cholecalciferol (vitamin D3) 25 mcg (1,000 unit) capsule 25 mcg PO DAILY omega-3 acid ethyl esters 1 gram capsule 1 cap PO BID metoprolol succinate 25 mg tablet extended release 24 hr 25 mg PO DAILY 90 Days Qty: 90 1RF nicotine (polacrilex) 4 mg mini lozenge 4 mg buccal Q6H PRN (Reason: nicotine cravings) 20 Days Qty: 81 0RF ibuprofen 600 mg tablet 600 mg PO Q8H PRN (Reason: pain) Qty: 14 0RF
[2022-12-12 20:52] LABS: Troponin-I High Sensitivity < 2.7 ng/L (<3.5-17.0)
[2022-12-12] MEDS: iohexoL 350 MG/ML 100 ML INFUS..BTL IV (21:33)
== END 2022-12-12 23:15 | disposition home or self-care (01) ==
PROVIDERS: Physician Assistant Medical; Emergency Provider Emergency Medicine; PCP Nurse Practitioner Family
DX: R07.89 Other chest pain (principal); M79.602 Pain in left arm; Z79.899 Other long term (current) drug therapy; F17.210 Nicotine dependence, cigarettes, uncomplicated; Z71.6 Tobacco abuse counseling
CPT/HCPCS: 36415; 71046; 71275; 80048; 80076; 83735; 84484; 85025; 93005; 99284; 99285; Q9967

== ENCOUNTER 2023-01-14 08:41 | Outpatient (AMB) | payer OTHER, MEDICAID, SELFPAY ==
[2023-01-14 08:47] VITALS: BP 148/92; PULSE 76; BMI 28.5
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
== END 2023-01-14 08:56 | disposition home or self-care (01) ==
LOC: HO.ENCR 08:41
PROVIDERS: PCP Nurse Practitioner Family; Visit Provider Internal Medicine Endocrinology, Diabetes & Metabolism
DX: E04.1 Nontoxic single thyroid nodule (principal)
CPT/HCPCS: 99213

== ENCOUNTER → 2023-01-14 08:41 | Outpatient (BNVA) | payer OTHER, MEDICAID, SELFPAY | PROVIDERS: PCP Nurse Practitioner Family; Visit Provider Internal Medicine Endocrinology, Diabetes & Metabolism ==

== ENCOUNTER 2023-01-22 14:33 | Outpatient (AMB) | payer OTHER, MEDICAID, SELFPAY ==
--- NOTE | 2023-01-22 14:38 | A.OFFVIS_ITS ---
Intake Vital Signs 01/22/23 14:40 Height 5 ft 7 in Weight 171 lb 15.369 oz BMI 26.9 BP 124/74 Blood Pressure Location Lt brachial Position Sitting Pulse 70 Intake Visit Reasons: Colonoscopy Screening Intake Note: Serenity presents in the office as a colonoscopy screening. CC: She states that she is not having any concerns today. 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 Required: No Allergies Wellbutrin Adverse Reaction (Unknown, Uncoded 11/01/22 10:31) worsening mood, dizziness Medication List - Last Reconciled 01/22/23 by Jazmyn Alba PA-C amlodipine 2.5 mg PO DAILY 90 days aspirin (Adult Low Dose Aspirin) 81 mg PO DAILY 90 days cholecalciferol (vitamin D3) 25 mcg PO DAILY ezetimibe 10 mg PO DAILY 90 days Gait belt daily use for lumbar support ibuprofen 600 mg PO Q8H PRN icosapent ethyl (Vascepa) 2 grams PO BID lisinopril-hydrochlorothiazide 20-25 mg 1 tab PO DAILY metoprolol succinate ER 25 mg PO DAILY 90 days multivitamin (Daily Multi-Vitamin tablet) 1 tab PO DAILY 90 days nicotine (polacrilex) 4 mg buccal Q6H PRN nicotine (polacrilex) 4 mg buccal Q6H PRN 20 days omega-3 acid ethyl esters 1 cap PO BID rosuvastatin 40 mg PO DAILY 90 days [SI joint Belt As directed] HPI HPI Comments History of Present Illness Details A 67-year-old female history of adenomas- last colonoscopy 218 - no polyps- She has no GI complaints- normal bowel pattern She has a good appetite She is now retired No respiratory or cardiac issues-with she was seen in the ED beginning of December with chest pain she has not had any further episodes. She does have f ollow-up PCP Up has AAA-being monitored by PCP She is trying to quit smoking No nausea, vomiting, hematemesis, hematochezia fever chills PFSH Medical History Hyperthyroidism Left thyroid nodule Liver lesion, right lobe Tubular adenoma of colon (~2013) History of COVID-19 Elevated liver enzymes Postmenopausal Parotiditis Elevated systolic blood pressure reading with diagnosis of hypertension AAA (abdominal aortic aneurysm) Migraines Elevated fasting glucose Dyslipidemia Back pain Surgical History History of colonoscopy Family History Mother Thyroid cancer Daughter No problems noted. Father Stroke Housing: House Alcohol intake: current Alcohol intake frequency: holidays/special occasions only Alcohol type: wine Patient Tobacco Use Status: Current someday Tobacco user Tobacco use type: Cigarette Cigarettes Per Day: 1 Years Smoked: (onset 19yo, 1ppd x 47yrs, 40+PYH) e-Cigarette/Vaping Use: Never Used Second Hand Smoke Exposure: Yes service: No Current occupational status: retired Gender identity: Female Cognitive needs: No Hearing needs: No Vision needs: No Review of Systems Const All systems reviewed & are unremarkable except as noted in HPI and below Card Denies chest pain, Denies chest pain at rest, Denies chest pain with activity, Denies rapid heart rate, Denies irregular heart rhythm, Denies lightheadedness, Denies palpitations and Denies dyspnea Resp Denies dyspnea Endo Denies palpitations Physical Exam Vital Signs: Last Vital Signs Pulse 70 01/22/23 14:40 BP 124/74 01/22/23 14:40 BMI result Body Mass Index 26.9 Const General: cooperative, healthy appearing, comfortable, no acute distress and well developed Orientation/consciousness: patient oriented x3 Limitations: no limitations Eyes Other: Periorbital dark circles bilateral Sclerae: sclerae normal Resp Effort & Inspection: normal respiratory effort and able to speak in complete sentences Auscultation: clear to auscultation bilaterally, no rales, no rhonchi and no wheezes Cardio Rate: regular rate Rhythm: regular rhythm Heart sounds: S1 normal heart sound present and S2 normal heart sound present GI Palpation (GI): Soft to palpation and nontender Auscultation: normal bowel sounds Skin General skin exam: no rashes or lesions noted Neuro General: patient oriented x3 Extrem General: Yes full ROM Psych Appearance: grossly normal Mental Status: mental status grossly normal Speech and movement: Normal speech and movement present and Clear speech present Attitude: cooperative Thought process: Normal thought process present Thought content: Normal thought content present Results Reviewed Results Reviewed: 12/12/22-EKG Independent Interpretation I performed an independent interpretation of an: EKG Interpretation: Normal sinus rhythm rate [address]-T changes CT/CT angio chest PE protocol IMPRESSION: No evidence of pulmonary embolism. Emphysema. Stable pulmonary nodules. Chest CT follow-up as per lung cancer screening protocol VTE: negative XR/XR chest 2V IMPRESSION: No acute pulmonary pathology. Assessment & Plan Assessment & Plan (1) Tubular adenoma of colon: Onset Date: ~2013 Comment: (2 TAs on 2013 scope, normal 2018 scope - repeat 2022) Code(s): D12.6 - Benign neoplasm of colon, unspecified Plan polyp surveillance colonoscopy MG prep Orders: Orders Colonoscopy - GI Use Only 01/22/23 D12.6 - Benign neoplasm of colon, unspecified Medications: New polyethylene glycol 3350 (Miralax) Take as directed by mouth the day before your procedure. 238 grams PO ONCE 1 day PRN 238 grams 0RF laxative effect bisacodyl (Dulcolax (bisacodyl)) Day before procedure, prep day Take 4 tablets by mouth upon awakening followed by large glass of water 20 mg (4 x 5 mg) PO ONCE 1 day 4 tabs 0RF colonoscopy prep Z12.11 - Encounter for screening for malignant neoplasm of colon Changed From icosapent ethyl (Vascepa) 2 grams (4 x 0.5 gram) PO BID 30 days 240 caps 0RF To icosapent ethyl (Vascepa) 2 grams PO BID Patient Instructions: Pleasant 67-year-old female history colon polyps- Polyp surveillance colonoscopy MG prep-reviewed, literature Opportunity for questions Continue to follow-up with PCP as scheduled Report any change in health status Encouraged to call with questions or concerns Coding Level of Care Code New Pt Level 3 (11360) Diagnoses Tubular adenoma of colon D12.6 Time Spent (min) 30
[2023-01-22 14:40] VITALS: BP 124/74; PULSE 70; BMI 26.9
== END 2023-01-22 15:31 | disposition home or self-care (01) ==
PROVIDERS: PCP Nurse Practitioner Family; Visit Provider Physician Assistant
DX: D12.6 Benign neoplasm of colon, unspecified (principal)
CPT/HCPCS: 99203

== ENCOUNTER → 2023-01-22 14:33 | Outpatient (BNVA) | payer OTHER, MEDICAID, SELFPAY | PROVIDERS: PCP Nurse Practitioner Family; Visit Provider Physician Assistant ==

== ENCOUNTER 2023-02-12 09:00 | Outpatient (RCR) | payer MEDICARE, MEDICAID, SELFPAY ==
--- NOTE | 2022-12-07 10:53 | MHC.PT.EP ---
[facility] [place] Office [place] [facility] [place] Office [address] [phone] F: [phone] F: [phone] F: [phone] F: [phone] Physical Therapy Plan of Care Date of Evaluation: 12/07/22 Date of Surgery: Diagnosis: pain in R hip Assessment: 67 y/o female referred to PT with pain in R hip resulting in pain and difficulty with walking, biking, and sleeping secondary to decreased hip/core strength, decreased quad/piriformis length, altered SI mechanics, pain and impaired gait pattern. Recommend PT 1x/week for 6 weeks to address impairments, implement HEP, and optimize functional mobilty. Frequency and Duration: The patient will be seen 1x/week for 6 weeks Short Term Goals: 3 weeks Compliant with HEP Demonstrate posterior pelvic tilt without cues 10/10x correctly Correction Goals: 6 weeks I with HEP and self management of sx Pt will be able to walk > 30 minutes with pain 3/10 Treatment Plan: Modalities to reduce pain, spasms and effusion. Manual therapy to restore motion and function. Therapeutic exercise to improve strength and flexibility. Neuromuscular re-education for posture and balance. Therapeutic activities to return to functional activities of daily living. Electronically signed by: Carmen Barroso PT Please sign and return to therapist. Thank you for your referral.
--- NOTE | 2023-03-22 07:49 | MHC.PT.DC ---
[facility] [place] Office [place] [facility] [place] Office [address] Taylor Benítez [address] [phone] F: [phone] F: [phone] F: [phone] F: [phone] Physical Therapy Discharge Report Diagnosis: pain in R hip Date of Surgery: Date of Evaluation: 12/07/22 Date of Discharge: 03/22/23 Treatments to Date: 6 Cancellations to Date: 4 No Shows to Date: 1 Discharge Status: Independent with HEP Visit Non-compliance Discharge Summary: Pt did not f/u with final visits, however at time of last attended visit, pt with less reported pain and I with HEP. D/c chart at this time. Electronically signed by: Carmen Barroso PT Please sign and return to therapist. Thank you for your referral.
== END 2023-03-22 07:50 | disposition home or self-care (01) ==
LOC: HO.PTCHIC 09:00
PROVIDERS: PCP Nurse Practitioner Family; Visit Provider Nurse Practitioner Family
DX: M25.551 Pain in right hip (principal); G89.29 Other chronic pain
CPT/HCPCS: 97110; 97140; 97162

== ENCOUNTER 2023-02-21 08:42 | Outpatient (REF) | payer OTHER, MEDICAID, SELFPAY ==
[2023-02-21 11:29] LABS: MANUAL DIFF FLAG NO
[2023-02-21 11:50] LABS: Basophils Percent Auto 0.7 % (0-2); Eosinophils Absolute Auto 0.1 X10*3/uL (0.0-0.4); Hematocrit 43.1 % (37.0-47.0); Hemoglobin 14.3 g/dl (12.0-16.0); Imm Gran Abs Auto 0.01 X10*3/uL (0.00-0.03); Imm Gran Pct Auto 0.2 % (0.0-0.4); Lymphocytes Absolute Auto 1.4 X10*3/uL (1.2-4.9); Lymphocytes Percent Auto 25.2 % (20-40); Mean Corpuscular HGB Conc 33.2 g/dl (31.0-35.0); Mean Corpuscular Hemoglobin 28.9 pg (27.0-33.0); Mean Corpuscular Volume 87.1 fL (80.0-98.0); Mean Platelet Volume 11.3 fL (9.4-12.3); Monocytes Absolute Auto 0.4 X10*3/uL (0.1-1.2); Monocytes Percent Auto 7.2 % (2-11); Neutrophils Absolute Auto 3.5 x10*3/uL (2.0-8.3); Neutrophils Percent Auto 64.7 % (45-73); Platelet Count 165 X10*3/uL (160-400); Red Blood Count 4.95 X10*6/uL (4.20-5.50); White Blood Count 5.4 X10*3/uL (4.8-10.8)
[2023-02-21 12:21] LABS: Alanine Aminotransferase 62 U/L (0-31); Albumin Level 4.2 g/dL (3.5-5.0); Alkaline Phosphatase 49 U/L (39-117); Anion Gap 12 (12-20); Aspartate Amino Transferase 41 U/L (5-31); Bilirubin Total 0.7 mg/dL (0.0-1.0); Blood Urea Nitrogen 14 mg/dL (9-16); Calcium 9.7 mg/dL (8.4-10.2); Carbon Dioxide 28 mmol/L (22-29); Chloride 106 mmol/L (96-108); Cholesterol 144 mg/dL (<200); Estimated Glomerular Filt Rate > 60; Glucose Fasting 133 mg/dL (60-99); HDL Cholesterol 49 mg/dL (>40); LDL Cholesterol Calculated 61 mg/dL (<100); Potassium 3.7 mmol/L (3.3-5.1); Sodium 142 mmol/L (135-145); Triglycerides 172 mg/dL (<150)
[2023-02-21 12:28] LABS: TSH reflex Free T4 0.45 uIU/mL (0.32-4.0); Vitamin D 25-OH Total 43.6 ng/mL (>30)
[2023-02-21 12:55] LABS: Appearance Urine Clear; Color Urine Yellow; Glucose Urine UA Negative (Negative); Leukocyte Esterase Urine Negative (Negative); Nitrite Urine Negative (Negative); PH 7.5 (5.0-9.0); UMIC TRIGGER UACC YES; Urine Blood Negative (Negative); Urine Ketones Negative (Negative); Urine Protein 100 (2+) mg/dL (Neg-Trace)
[2023-02-21 12:59] LABS: Bacteria Urine None Seen (None Seen); Hyaline Casts Urine 0-2 /LPF (0-2); Squamous Epithelial Cell Urine 0-2 /HPF (0-2); WBC Urine 0-5 /HPF (0-5)
== END 2023-02-21 08:43 | disposition home or self-care (01) ==
LOC: HO.HMGCLDS 08:42
PROVIDERS: PCP Nurse Practitioner Family; Visit Provider Nurse Practitioner Family
DX: Z00.00 Encounter for general adult medical examination without abnormal findings (principal); Z78.0 Asymptomatic menopausal state
CPT/HCPCS: 36415; 80053; 80061; 81001; 81003; 82306; 84443; 85025

== ENCOUNTER 2023-03-27 11:21 | Outpatient (AMB) | payer MEDICARE, MEDICAID, SELFPAY ==
--- NOTE | 2023-03-27 11:22 | MHC.OFFVIS ---
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 She is doing well with no concerns. Attempting to eat a healthy diet with calcium and vitamin D and stays active with exercise. Currently not sexually active. Denies any vaginal dryness or irritation. STI testing offered; she declines. Last pap smear; 2021. Last mammogram; 2022. Colonoscopy is UTD. Denies any family history of breast, ovarian or colon cancer. [facility] Medical History Hyperthyroidism Left thyroid nodule Liver lesion, right lobe Tubular adenoma of colon (~2013) History of COVID-19 Elevated liver enzymes Postmenopausal Parotiditis Elevated systolic blood pressure reading with diagnosis of hypertension AAA (abdominal aortic aneurysm) Migraines Elevated fasting glucose Dyslipidemia Back pain Surgical History History of colonoscopy Family History Mother Thyroid cancer Daughter No problems noted. Father Stroke Social History Housing: House Alcohol intake: current Alcohol intake frequency: holidays/special occasions only Alcohol type: wine Patient Tobacco Use Status: Current someday Tobacco user Tobacco use type: Cigarette Cigarettes Per Day: 1 Years Smoked: (onset 19yo, 1ppd x 47yrs, 40+PYH) e-Cigarette/Vaping Use: Never Used Second Hand Smoke Exposure: Yes service: No Current occupational status: retired Gender identity: Female Cognitive needs: No Hearing needs: No Vision needs: No Female Reproductive History Menstrual Total pregnancies: 3 Full term: 3 Number of Living Children: 3 Date of last pap smear: 03/22/22 (neg pap and hpv) Date of Mammogram: 08/28/22 (Birad 2) Review of Systems Const All systems reviewed & are unremarkable except as noted in HPI and below Reports as per HPI Eyes Reports no additional complaints ENT Reports no additional complaints Card Reports no additional complaints Resp Reports no additional complaints GI Reports as per HPI and Reports no additional complaints Reports as per HPI Musc Reports no additional complaints Skin/Breast Reports as per HPI Neuro Reports no additional complaints Psych Reports no additional complaints Endo Reports no additional complaints Juan Antonio/Lymph Reports no additional complaints Aller/Immun Reports no additional complaints Physical Exam Vital Signs: Last Vital Signs BP 112/70 03/27/23 11:23 BMI result Body Mass Index 27.9 Const General: cooperative, healthy appearing, no acute distress, well developed and alert Orientation/consciousness: patient oriented x3 HEENT Head: Yes normal to inspection Eyes General: appearance normal, both eyes and all related structures Neck Neck: Yes normal visual inspection Thyroid: Thyroid normal Chest Chest palpation & inspection: normal inspection of the chest and other (no puckering, dimpling, peau de orange, retraction, discharge, masses) Breast/axilla inspection: normal inspection of the breasts Breast/axilla palpation: normal palpation of the breasts Resp Effort & Inspection: normal respiratory effort GI Inspection: Yes normal to inspection Palpation (GI): Soft to palpation Rectal Exam - Female: deferred General: Yes bladder normal to palpation External Female Exam: normal external appearance and normal appearance of the urethra Speculum Exam - Vagina: normal appearance of the vagina, normal palpation, normal vaginal discharge and vagina atrophic Speculum Exam - Cervix: normal appearance of the cervix and normal palpation Bimanual exam- vagina & uterus: normal bimanual exam, normal palpation, uterine size normal, bladder normal to palpation, normal palpation and non-tender Bimanual Exam- Adnexa, other: no masses Skin General skin exam: no rashes or lesions noted Rashes: no rashes Neuro General: patient oriented x3 Cognition (Neuro): normal cognition Extrem General: Yes normal to inspection Psych Attitude: cooperative Thought process: Normal thought process present Assessment & Plan Assessment & Plan (1) Encounter for well woman exam with routine gynecological exam: Code(s): Z01.419 - Encounter for gynecological examination (general) (routine) without abnormal findings Plan Discussed: Current recommendations for pap smears per ASCCP guidelines. Breast awareness, periodic self breast exams and yearly mammogram. Maintain a healthy lifestyle, well balanced diet including Calcium 1,200 mg and Vitamin D 600 IU daily, and routine exercise. Contact the office with any postmenopausal bleeding. All of her questions and concerns were addressed to the best of my ability. RTO in 1 year for annual wood furniture assembler exam. This note is constructed using voice recognition software. While every effort has been made to ensure accuracy, bit welder errors may have been included. Coding Level of Care Code Est Pt Prev Care >65y(91086) Diagnoses Encounter for well woman exam with routine gynecological exam Z01.419
[2023-03-27 11:23] VITALS: BP 112/70; BMI 27.9
== END 2023-03-27 11:54 | disposition home or self-care (01) ==
LOC: HO.HWS 11:21
PROVIDERS: PCP Nurse Practitioner Family; Visit Provider Advanced Practice Midwife
DX: Z01.419 Encounter for gynecological examination (general) (routine) without abnormal findings (principal)
CPT/HCPCS: 99397

== ENCOUNTER → 2023-03-27 11:21 | Outpatient (BNVA) | payer MEDICARE, MEDICAID, SELFPAY | PROVIDERS: PCP Nurse Practitioner Family; Visit Provider Advanced Practice Midwife ==

== ENCOUNTER 2023-04-03 08:54 | Outpatient (REF) | payer MEDICARE, MEDICAID, SELFPAY ==
--- NOTE | ~2023-04-03 | CT_ITS ---
EXAMINATION: CT ABDOMEN AND PELVIS WITHOUT AND WITH CONTRAST CLINICAL INFORMATION: Microscopic hematuria COMPARISON: CT angiogram of the chest, abdomen and pelvis on 09/30/2018 TECHNIQUE: Noncontrast CT of the abdomen and pelvis is performed followed by split bolus contrast-enhanced images using 85 mL Omnipaque 350 contrast.? Postcontrast imaging is performed during the combined nephrogram and excretion phase. Sagittal and coronal reformatted images were obtained on the technologist's workstation for both the precontrast and postcontrast phases. This CT examination was performed using dose optimization techniques as appropriate, variously including the following: *Automated exposure control *Adjustment of mA and/or kV according to patient size (this includes techniques or standardized protocols for targeted exams where dose is matched to indication/reason for exam; i.e. extremities or head) *Use of iterative reconstruction technique DLP: 762.54 mGy-cm FINDINGS: LUNG BASES: Bilateral lung bases are clear. LIVER: There is interval increase in size of the previously reported enhancing lesion in right hepatic dome segment 8, now measuring 3.6 cm in AP diameter, 2.0 cm in width, 1.7 cm in vertical height, series 8 image #9, series 10 image #39 (previously 0.5 x 0.6 cm). GALLBLADDER AND BILIARY TREE: Gallbladder appears unremarkable without calcified stones. Common bile duct is not dilated. SPLEEN: The spleen is normal in size without focal lesion. PANCREAS: The pancreas appears unremarkable. ADRENAL GLANDS: Adrenal glands are normal in size without focal lesion bilaterally. KIDNEYS: Precontrast images show no calcified renal stones. Post contrast nephrographic phase images show normal uniform bilateral nephrograms. Excretory phase images show normal excretion of contrast into bilateral renal calyces, pelvises and ureters without filling defects. BOWELS: There is no abnormal dilatation of large and small bowel loops. RETROPERITONEUM: No abnormally enlarged retroperitoneal lymph nodes, mass or hematoma could be seen. BLOOD VESSELS: Abdominal aorta shows infrarenal calcified fusiform aneurysm, measuring 4.0 cm in AP diameter, 3.7 cm in width, 6.0 cm in vertical height (previously 3.3 x 3.4 cm), with extensive atherosclerotic calcifications, but remains smoothly patent. ABDOMINAL WALL: Small umbilical hernia containing mesenteric fat is seen. PERITONEUM: There was no ascites. There were no abdominal peritoneal inflammatory changes seen. No free peritoneal air was seen. No abnormally enlarged mesenteric lymph nodes are found. BONES: No fracture or dislocation. No focal bone lesion diagnostic of metastatic disease could be seen in the lumbar region. EXAMINATION: CT pelvis. TECHNIQUE: Multiple axial images were obtained from iliac crest to the inferior pubic rami before and following the administration of 85 mL of Omnipaque 350. Coronal and sagittal images were reconstructed from axial image data. Maximum intensity projection images of the pelvis were also reconstructed. Dose reduction technique: One or more of the following individual dose optimization techniques were used including: Automated exposure control, mA and/or kV were adjusted according to patient size or iterative reconstruction. FINDINGS: URINARY BLADDER AND URETERS: Precontrast images show no calcified urinary bladder stone or distal ureteric stones. Urinary bladder fills normally with contrast without filling defects. There is normal visualization of bilateral distal ureters which are normal in size. BOWELS: There is no abnormal dilatation of large and small bowel loops. Normal appendix is seen projecting posterior to the cecum. GENITAL ORGANS: No adnexal mass lesion could be seen. The uterus is unremarkable. LYMPH NODES: No abnormally enlarged iliac or inguinal lymph nodes are seen. PERITONEUM: No inflammatory changes, ascites or free peritoneal air are found in the pelvis. BONES: No fracture or dislocation. No focal bone lesion diagnostic of metastatic disease could be seen in the pelvis. CT/CT urogram IMPRESSION: 1. No CT evidence of nephrolithiasis or obstructive uropathy. 2. Small umbilical hernia containing mesenteric fat. 3. No evidence of urinary bladder stone or mass lesion. 4. Interval enlargement of right hepatic dome hyperenhancing lesion in segment 8. Follow-up evaluation with pre and postcontrast MRI abdomen is recommended to exclude developing hepatocellular tumor. 5. Infrarenal abdominal aortic aneurysm, measuring 4.0 cm in AP diameter. Recommend followup every 12 months and vascular specialist consultation. Reference: J Am Marge Radiol 2013; 10 (10): 789-794.
[2023-04-03] MEDS: iohexoL 350 MG/ML 75 ML INFUS..BTL 85 ML IV (09:46)
[2023-04-04 07:34] LABS: Creatinine POC 0.6 mg/dL (0.5-1.4); GFR POC > 60
== END 2023-04-03 08:55 | disposition home or self-care (01) ==
LOC: HO.CT 08:54
PROVIDERS: PCP Nurse Practitioner Family; Visit Provider Nurse Practitioner Family
DX: R31.29 Other microscopic hematuria (principal)
CPT/HCPCS: 74178; 82565; Q9967

== ENCOUNTER 2023-04-16 11:05 | Outpatient (AMB) | payer MEDICARE, MEDICAID, SELFPAY ==
--- NOTE | 2023-04-16 11:06 | MHC.OFFWIV ---
Intake Vital Signs 04/16/23 11:09 Height 5 ft 7 in Weight 181 lb BMI 28.3 BP 144/80 H Blood Pressure Location Rt brachial Position Sitting Pulse 80 Pulse Source Pulse Oximeter Temp 98 F Temp Source Oral Pulse Oximetry (%) 98 Oxygen Delivery Method Room Air Intake Visit Reasons: EST/cat scratch on right hand (lobby) Intake Note: Pt is here c/o cat scratch on her right hand. Pt states she has discahrge coming from the cut and states her hand is in pain. Patient Tobacco Use Status: Current someday Tobacco user Allergies Wellbutrin Adverse Reaction (Unknown, Uncoded 04/16/23 11:06) worsening mood, dizziness Medication List - Last Reconciled 04/16/23 by RAFFI Espino amlodipine 2.5 mg PO DAILY 90 days amoxicillin-pot clavulanate 500-125 mg (Augmentin) 1 tab PO BID 7 days aspirin (Adult Low Dose Aspirin) 81 mg PO DAILY 90 days bisacodyl (Dulcolax (bisacodyl)) 20 mg (4 x 5 mg) PO ONCE 1 day cholecalciferol (vitamin D3) 25 mcg PO DAILY ezetimibe 10 mg PO DAILY 90 days Gait belt daily use for lumbar support ibuprofen 600 mg PO Q8H PRN lisinopril-hydrochlorothiazide 20-25 mg 1 tab PO DAILY metoprolol succinate ER 25 mg PO DAILY 90 days multivitamin (Daily Multi-Vitamin tablet) 1 tab PO DAILY 90 days nicotine (polacrilex) 4 mg buccal Q6H PRN nicotine (polacrilex) 4 mg buccal Q6H PRN omega-3 acid ethyl esters 1 cap PO BID polyethylene glycol 3350 (Miralax) 238 grams PO ONCE PRN 1 day rosuvastatin 40 mg PO DAILY 90 days [SI joint Belt As directed] Do you need a note to return to daycare/school/sports/work: No HPI HPI Comments History of Present Illness Details 68-year-old female was scratched on the right hand for 3rd digit yesterday by her own cat while they were playing. The cat is fully immunized but does go outside. The puncture wound has become erythematous and painful. The patient indicates her Tdap within the last 10 years [facility] Medical History Hyperthyroidism Left thyroid nodule Liver lesion, right lobe Tubular adenoma of colon (~2013) History of COVID-19 Elevated liver enzymes Postmenopausal Parotiditis Elevated systolic blood pressure reading with diagnosis of hypertension AAA (abdominal aortic aneurysm) Migraines Elevated fasting glucose Dyslipidemia Back pain Surgical History History of colonoscopy Family History Mother Thyroid cancer Daughter No problems noted. Father Stroke Social History Housing: House Alcohol intake: current Alcohol intake frequency: holidays/special occasions only Alcohol type: wine Patient Tobacco Use Status: Current someday Tobacco user Tobacco use type: Cigarette Cigarettes Per Day: 1 Years Smoked: (onset 19yo, 1ppd x 47yrs, 40+PYH) e-Cigarette/Vaping Use: Never Used Second Hand Smoke Exposure: Yes service: No Current occupational status: retired Gender identity: Female Cognitive needs: No Hearing needs: No Vision needs: No Review of Systems Skin/Breast Reports as per HPI, Reports lesions and Reports wounds (right 3rd digit dital phalanx puncture wound) Physical Exam Vital Signs: Last Vital Signs Temp 98 F 04/16/23 11:09 Pulse 80 04/16/23 11:09 BP 144/80 H 04/16/23 11:09 Pulse Ox 98 04/16/23 11:09 Oxygen Delivery Method Room Air 04/16/23 11:09 BMI result Body Mass Index 28.3 Skin Trauma: puncture Wounds: wounds noted (puncture wound 3rd digit Distal phalanx) puncture wound right lateral 3rd finger with surrounding erythema Assessment & Plan Assessment & Plan (1) Puncture wound: Code(s): T14.8XXA - Other injury of unspecified body region, initial encounter Plan: The patient will take Augmentin for 7 days. She would keep the wound clean and dry and return as if the areas pieces. Plan see plan Medications: New amoxicillin-pot clavulanate 500-125 mg (Augmentin) 1 tab PO BID 7 days 14 tabs 0RF Coding Level of Care Code Est Pt Level 3 (90638) Diagnoses Puncture wound T14.8XXA
[2023-04-16 11:09] VITALS: BP 144/80; PULSE 80; TEMP 36.6; O2SAT 98; BMI 28.3
== END 2023-04-16 12:06 | disposition home or self-care (01) ==
PROVIDERS: PCP Nurse Practitioner Family; Visit Provider Physician Assistant Medical
DX: T14.8XXA Other injury of unspecified body region, initial encounter (principal)
CPT/HCPCS: 99213

== ENCOUNTER → 2023-04-24 08:56 | Outpatient (BNVA) | payer MEDICARE, MEDICAID, SELFPAY | PROVIDERS: PCP Nurse Practitioner Family; Visit Provider Nurse Practitioner Family ==

== ENCOUNTER 2023-07-15 12:07 | Day surgery (SDC) | payer MEDICARE, MEDICAID, SELFPAY ==
[2023-07-12 07:56] VITALS: BMI 26.8
--- NOTE | 2023-07-12 12:31 | P.CONAN_ITS ---
Documented by User: Zoraida Meehan NP 07/12/23 12:43 HPI - Anesthesia Eval Consult details Narrative: 68yo F for Colonoscopy PMFSH Active Problems Active Problems: All Active Problems Puncture wound (Acute) Infrarenal abdominal aortic aneurysm (AAA) without rupture (Acute) Liver lesion (Acute) Microscopic hematuria (Acute) Vertigo (Acute) Chronic hip pain (Acute) Screening for colon cancer (Acute) Hyperthyroidism (Acute) Fatigue (Acute) Dysphagia (Acute) Low TSH level (Acute) Swelling (Acute) Fatigue (Acute) Thyroid nodule (Acute) Lymphadenopathy (Acute) Cervicalgia (Acute) Neck pain (Acute) Chronic lower back pain (Acute) Elevated liver enzymes (Acute) Dyslipidemia (Acute) Elevated systolic blood pressure reading with diagnosis of hypertension (Acute) Nicotine dependence, cigarettes, uncomplicated (Acute) AAA (abdominal aortic aneurysm) (Acute) Left thyroid nodule (Acute) Liver lesion, right lobe (Acute) Tubular adenoma of colon (Acute ~2013) Elevated fasting glucose (Acute) Migraines (Acute) Postmenopausal (Acute) Past Medical History Medical History Hyperthyroidism Left thyroid nodule Liver lesion, right lobe Tubular adenoma of colon (~2013) History of COVID-19 Elevated liver enzymes Postmenopausal Parotiditis Elevated systolic blood pressure reading with diagnosis of hypertension AAA (abdominal aortic aneurysm) Migraines Elevated fasting glucose Dyslipidemia Back pain Family History Family History Mother Thyroid cancer Daughter No problems noted. Father Stroke Surgical History Surgical History History of colonoscopy Social History Social History Housing: House Alcohol intake: current Alcohol intake frequency: holidays/special occasions only Alcohol type: wine Patient Tobacco Use Status: Current everyday Tobacco user Tobacco use type: Cigarette Cigarettes Per Day: 3 Years Smoked: (onset 19yo, 1ppd x 47yrs, 40+PYH) e-Cigarette/Vaping Use: Never Used Second Hand Smoke Exposure: Yes service: No Current occupational status: retired Gender identity: Female Cognitive needs: No Hearing needs: No Vision needs: No Meds Allergies Allergy/AdvReac Type Severity Reaction Status Date / Time Wellbutrin AdvReac Unknown worsening Uncoded 07/15/23 09:18 mood, dizziness Home Medications ?Medication ?Instructions ?Recorded ?Confirmed ?Last Taken ?Type cholecalciferol (vitamin D3) 25 25 mcg PO DAILY 02/27/22 07/15/23 Unknown History mcg (1,000 unit) capsule omega-3 acid ethyl esters 1 gram 1 cap PO BID 02/27/22 07/15/23 07/08/23 History capsule Exam Height,Weight and Vital Signs: Height 5 ft 7 in Weight 77.564 kg Pertinent Lab Results Pertinent Lab Results: Laboratory Tests 02/21/23 09:08 WBC 5.4 Hgb 14.3 Hct 43.1 Plt Count 165 Sodium 142 Potassium 3.7 Chloride 106 Carbon Dioxide 28 BUN 14 Creatinine 0.77 Narrative Narrative: EKG 12/2022 Vent. Rate : 060 BPM Atrial Rate : 060 BPM P-R Int : 158 ms QRS Dur : 092 ms QT Int : 406 ms P-R-T Axes : 040 -02 037 degrees QTc Int : 406 ms Normal sinus rhythm Normal ECG When compared with ECG of 01-MAR-2022 23:31, No significant change was found US abdomen complete 2021 IMPRESSION: Slightly echogenic enlarged liver suggestive of fatty infiltration. Liver lesion seen by CT not well appreciated. Limited visualization of the aorta, pancreas and gallbladder. Dilated mid abdominal aorta measuring 3.9 x 4.1 cm. This is increased from 3.3 x 3.4 cm September 2018 CTA. Follow-up dedicated abdominal aorta ultrasound recommended. Assessment and Plan Assessment Anesthesia Assessment: Chart Reviewed Documented by User: Paige New MD 07/15/23 09:48 [facility] Past Medical History Medical History Hyperthyroidism Left thyroid nodule Liver lesion, right lobe Tubular adenoma of colon (~2013) History of COVID-19 Elevated liver enzymes Postmenopausal Parotiditis Elevated systolic blood pressure reading with diagnosis of hypertension AAA (abdominal aortic aneurysm) Migraines Elevated fasting glucose Dyslipidemia Back pain Family History Family History Mother Thyroid cancer Daughter No problems noted. Father Stroke Family history of problems with anesthesia: No Surgical History Surgical History History of colonoscopy History of Problems with Anesthesia: No Social History Social History Housing: House Alcohol intake: current Alcohol intake frequency: holidays/special occasions only Alcohol type: wine Patient Tobacco Use Status: Current everyday Tobacco user Tobacco use type: Cigarette Cigarettes Per Day: 3 Years Smoked: (onset 19yo, 1ppd x 47yrs, 40+PYH) e-Cigarette/Vaping Use: Never Used Second Hand Smoke Exposure: Yes service: No Current occupational status: retired Gender identity: Female Cognitive needs: No Hearing needs: No Vision needs: No Meds Allergies Allergy/AdvReac Type Severity Reaction Status Date / Time Wellbutrin AdvReac Unknown worsening Uncoded 07/15/23 09:18 mood, dizziness Home Medications ?Medication ?Instructions ?Recorded ?Confirmed ?Last Taken ?Type cholecalciferol (vitamin D3) 25 25 mcg PO DAILY 02/27/22 07/15/23 Unknown Hist ory mcg (1,000 unit) capsule omega-3 acid ethyl esters 1 gram 1 cap PO BID 02/27/22 07/15/23 07/08/23 History capsule Exam Airway Mallampati Class: II TM Dist: >3cm Neck ROM: Full Denture: Upper and Lower Heart: rrr Lungs: cta Assessment and Plan Assessment Anesthesia Assessment: Anesthesia Plan Discussed Final Anesthetic Review Family History of Problems with Anesthesia: No History of Problems with Anesthesia: No NPO: Yes ASA Class: II Final Preanesthetic Review: No Changes in Pt Med Stat, Meds/Allgs Chart Reviewed and Consent Obtained/Reviewed Patient Risk: Low Procedure Risk: Low Anesthetic Plan Anesthetic Plan: MAC: Disposition: Standard PACU
[2023-07-15 09:28] VITALS: BP 129/70; PULSE 53; RESP 16; TEMP 36.2; O2SAT 96
[2023-07-15] MEDS: Lactated Ringers 1,000 ML 100 ML IVCONT (09:48)
--- NOTE | 2023-07-15 09:55 | MHC.SHP ---
Pre-Procedural Eval Section A - 24 Hr Update-Section A only Date of Service: 07/15/23 The patient is an INPATIENT: No The patient has been examined within 24 hours of the surgical procedure. The History & Physical has been completed within 30 days and I have reviewed it.: No Section B - Complete if H&P > 30 days Chief Complaint: Surveillance for colon polyps Relevant Family History (Specify if Yes): No Relevant Social History: Tobacco Use Present Medications: see Short Stay Collaborative assessment Medical History: Significant History (Hyperthyroidism Left thyroid nodule Liver lesion, right lobe Tubular adenoma of colon (~2013) History of COVID-19 Elevated liver enzymes Postmenopausal Parotiditis Elevated systolic blood pressure reading with diagnosis of hypertension AAA (abdominal aortic aneurysm) Migraines) History of Previous Operations: Relevant previous surgery/procedure and date(s) (History of colonoscopy) Allergies: Allergies Allergy/AdvReac Type Severity Reaction Status Date / Time Wellbutrin AdvReac Unknown worsening Uncoded 07/15/23 09:18 mood, dizziness Review of Systems Sugical H&P ROS: Negative: Constitution, Cardiovascular, Respiratory and Gastrointestinal Exam Surgical H&P Exam: Normal: Heart, Normal: Lungs, Normal: Extremities and Normal: Abdomen Plan Diagnosis/Plan: Unchanged I have reviewed the history and physical and performed a pertinent physical examination on my patient. No changes have occurred unless specified. Time Spent With Patient Time: Total time managing care of this patient today ____ minutes.
[2023-07-15 11:13] VITALS: BP 89/50; PULSE 52; RESP 16; TEMP 36.3; O2SAT 96
--- NOTE | 2023-07-15 11:14 | HO.OPN-COLON ---
Colonoscopy Operative Note Operative Note Date of Service: 07/15/23 Narrative: COLONOSCOPY TILL CECUM WITH SNARE POLYPECTOMY SUBMUCOSAL INJECTION AND HEMOCLIP PLACEMENT Pre-op diagnosis: Surveillance for colon polyps. Post-op diagnosis:? Colon polyp, Diverticulosis Endoscopist:? Annalise Woodard MD Anesthesia:?MAC Consent: Indications for the procedure and potential complications of bleeding, perforation, reaction to medications and missed diagnosis were discussed with the patient and informed consent was obtained. Instrument: Olympus PCF H 190 L variable stiffness pediatric colonoscope Monitoring: Vital signs and clinical assessment, intermittent blood pressure monitoring, continuous EKG monitoring, Pulse oximetry and Carbon Dioxide monitoring were done throughout the procedure. Please see anesthesia flowsheet. Colon withdrawl time was 21 minutes. Procedure: The patient was placed in the left lateral decubitis position and pre-procedure medications were administered. After a digital rectal examination of the ano-rectum, the video colonoscope was inserted into the rectum and advanced through the colon to the cecum. The colonoscope was slowly withdrawn in a retrograde panoramic fashion and the colon mucosa was carefully examined including a retroflexed view of the rectum. Findings and interventions are described below. Procedure Difficulty: without difficulty Findings: Terminal Ileum: Not evaluated Cecum: A 12-15 mm flat polyp in the anterior lip of ICV (center). Polyp was raised with 6 cc of Eleview and removed piecemeal with a stiff hot snare. Margins of polypectomy site were treated with cautery using the snare tip. Polypectomy site was closed with 1 hemoclip. Ascending Colon: Normal Transverse Colon: Normal Descending Colon: Moderate diverticulosis Sigmoid Colon: Moderate diverticulosis Rectum: Normal Ano-rectum: Moderate internal hemorrhoids Colon preparation: Good to Fair despite copious irrigation and poor in some areas of the colon. There was undigested vegetable matter which could not be suctioned. [place] Bowel Preparation Scale Right colon; 1 Transverse colon: 1 Left colon; 1 (0 = Unprepared colon segment with mucosa not seen due to solid stool that cannot be cleared. 1 = Portion of mucosa of the colon segment seen, but other areas of the colon segment not well seen due to staining, residual stool and/or opaque liquid. 2 = Minor amount of residual staining, small fragments of stool and/or opaque liquid, but mucosa of colon segment seen well. 3 = Entire mucosa of colon segment seen well with no residual staining, small fragments of stool or opaque liquid) Impression and Post Procedure Diagnosis: Colonoscopy Findings: One medium sized polyp was removed Moderate diverticulosis seen in the left colon Plan: Pt has a FU appointment on 07/30/23 with RAFFI Gama Repeat Colonoscopy in 1 year if polyps is adenomatous and due to fair prep (Dulcolax 10 mg daily starting 3 days before colonoscopy appointment). Above findings were reviewed with the patient and relevant handouts were given and the discharge area.
[2023-07-15 11:28] VITALS: BP 110/69; PULSE 54; RESP 15; O2SAT 97
[2023-07-15 11:39] VITALS: BP 120/72; PULSE 60; RESP 18; TEMP 36.4; O2SAT 98
== END 2023-07-15 12:10 | disposition home or self-care (01) ==
LOC: HO.SSS 12:07
PROVIDERS: PCP Nurse Practitioner Family; Visit Provider Internal Medicine Gastroenterology
PROC: 0DJD8ZZ Inspection of Lower Intestinal Tract, Via Natural or Artificial Opening Endoscopic (ICD-10-PCS; CPT 45378; principal; 2023-07-15 10:10)
DX: Z12.11 Encounter for screening for malignant neoplasm of colon (principal); D12.6 Benign neoplasm of colon, unspecified; K57.30 Diverticulosis of large intestine without perforation or abscess without bleeding; K64.8 Other hemorrhoids; Z86.010 Personal history of colon polyps
CPT/HCPCS: 45385; 45381; 88305; J2704

== ENCOUNTER → 2023-07-15 12:07 | Outpatient (BNV) | payer MEDICARE, MEDICAID, SELFPAY | PROVIDERS: PCP Nurse Practitioner Family; Visit Provider Internal Medicine Gastroenterology | DX: Z12.11 Encounter for screening for malignant neoplasm of colon (principal); Z86.010 Personal history of colon polyps; K63.5 Polyp of colon; K57.90 Diverticulosis of intestine, part unspecified, without perforation or abscess without bleeding | CPT/HCPCS: 45381; 45385 ==

== ENCOUNTER 2023-07-30 09:47 | Outpatient (AMB) | payer MEDICARE, MEDICAID, SELFPAY ==
--- NOTE | 2023-07-30 09:50 | A.OFFVIS_ITS ---
Vital Signs 07/30/23 09:51 Height 5 ft 7 in Weight 169 lb 12.095 oz BMI 26.6 BP 131/66 Blood Pressure Location Lt brachial Position Sitting Pulse 70 Intake Visit Reasons: S/p colon Vance Intake Note: Patient new consult for Pre Colonoscopy results Patient denies any GI issues. 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 Accompanied by: Self / Same As Patient Allergies Wellbutrin Adverse Reaction (Unknown, Uncoded 07/30/23 09:51) worsening mood, dizziness Medication List - Last Reconciled 07/30/23 by Jazmyn Alba PA-C amlodipine 2.5 mg PO DAILY 90 days aspirin (Adult Low Dose Aspirin) 81 mg PO DAILY 90 days cholecalciferol (vitamin D3) 25 mcg PO DAILY ezetimibe 10 mg PO DAILY 90 days Gait belt daily use for lumbar support ibuprofen 600 mg PO Q8H PRN lisinopril-hydrochlorothiazide 20-25 mg 1 tab PO DAILY metoprolol succinate ER 25 mg PO DAILY 90 days multivitamin (Daily Multi-Vitamin tablet) 1 tab PO DAILY 90 days nicotine (polacrilex) 4 mg buccal Q6H PRN omega-3 acid ethyl esters 1 cap PO BID rosuvastatin 40 mg PO DAILY 90 days [SI joint Belt As directed] HPI Comments Details: 68-year-old female personal history of colon polyps, follows up after recent colonoscopy with polypectomy She tolerated procedure well Reviewed procedure report, pathology and recommendation No GI or general complaints No nausea, vomiting hematemesis hematochezia fever PFSH Medical History (Updated 07/30/23 @ 10:13 by Jazmyn Alba PA-C) Hyperthyroidism Left thyroid nodule Liver lesion, right lobe Tubular adenoma of colon (~2013) History of COVID-19 Elevated liver enzymes Postmenopausal Parotiditis Elevated systolic blood pressure reading with diagnosis of hypertension AAA (abdominal aortic aneurysm) Migraines Elevated fasting glucose Dyslipidemia Back pain Surgical History History of colonoscopy Family History Mother Thyroid cancer Daughter No problems noted. Father Stroke Social History (Updated 07/30/23 @ 10:26 by Jazmyn Alba PA-C) Housing: House Alcohol intake: current Alcohol intake frequency: holidays/special occasions only Alcohol type: wine Patient Tobacco Use Status: Current everyday Tobacco user Tobacco use type: Cigarette Cigarettes Per Day: 3 Years Smoked: (onset 19yo, 1ppd x 47yrs, 40+PYH) e-Cigarette/Vaping Use: Never Used Second Hand Smoke Exposure: Yes service: No Current occupational status: retired Current occupation: [employer] Gender identity: Female Cognitive needs: No Hearing needs: No Vision needs: No Review of Systems Const Details: All systems reviewed and are negative Physical Exam Vital Signs: Last Vital Signs Pulse 70 07/30/23 09:51 BP 131/66 07/30/23 09:51 BMI result Body Mass Index 26.6 Const General: cooperative, healthy appearing, comfortable and no acute distress Orientation/consciousness: patient oriented x3 Limitations: no limitations Resp Effort & Inspection: normal respiratory effort and able to speak in complete sentences Neuro General: patient oriented x3 Extrem General: Yes full ROM Psych Appearance: grossly normal and well kempt Mental Status: mental status grossly normal Speech and movement: Normal speech and movement present and Clear speech present Affect: normal affect Attitude: cooperative Thought process: Normal thought process present Thought content: Normal thought content present Results Reviewed Results Reviewed: Impression and Post Procedure Diagnosis: Colonoscopy Findings: One medium sized polyp was removed Moderate diverticulosis seen in the left colon Plan: Pt has a FU appointment on 07/30/23 with RAFFI Gama Repeat Colonoscopy in 1 year if polyps is adenomatous and due to fair prep (Dulcolax 10 mg daily starting 3 days before colonoscopy appointment). iagnosis Ileocecal valve, polypectomy: Fragments of sessile serrated lesion/polyp with thermal artifact; negative for cytologic dysplasia. Clinical History Pre-Op Dx: Surveillance for colon polyps Post-Op Dx: Colon polyp, diverticulosis Microscopic Description Microscopic sections reviewed. Material Received Polyp near ileo-cecal valve Gross Description Received in formalin labeled ?polyp near ileocecal valve? along with scant debris are 4 rodriguez-white and rodriguez- pink irregular tissue fragments ranging from 0.1-0.45 cm, submitted in toto in a cassette labeled A. CEDS Copies To Harjinder Cerna- [address] [facility] [address] [place], [place] [id number] Annalise Woodard MD [address] [place] [address] Dr. Echeverria, [place] [id number] NOTE: Unless otherwise stated, all tissue is formalin-fixed and paraffin- embedded. Some or all of the immunohistochemical tests reported herein may have been developed and their performance characteristics determined by [facility]. They have not been cleared or approved by the U.S. Food and Drug Administration (FDA). However, the FDA has determined that such clearance or approval is not necessary. This laboratory is certified under the Clinical Laboratory Improvement Amendments of 1988 (CLIA) as qualified to perform high complexity clinical laboratory testing. Electronically Signed By: Reilly Raymond MD 07/17/23 [id number] Patient: Serenity Ray Age/Sex: 68/F MR#: [id number] Page 1 of 1 Repeat 1 year Assessment & Plan Assessment & Plan (1) Sessile serrated polyp of colon: Code(s): D12.6 - Benign neoplasm of colon, unspecified Category: Medical Plan: Repeat colonoscopy 1 year Repeat Colonoscopy in 1 year if polyps is adenomatous and due to fair prep (Dulcolax 10 mg daily starting 3 days before colonoscopy appointment Further discuss prep Order placed prep not sent- (2) Diverticulosis of colon: Code(s): K57.30 - Diverticulosis of large intestine without perforation or abscess without bleeding Category: Medical Plan: ER protocol Maintain high-fiber (3) Hemorrhoids: Code(s): K64.9 - Unspecified hemorrhoids Category: Medical Plan: High-fiber Avoid straining Plan Repeat colonoscopy 1 year-order placed See back in 9 months Patient Instructions: 1 year colonoscopy repeat-we will extend her prep, giving her Dulcolax 10 mg daily starting 3 days prior to procedure Diverticulosis/diverticulitis ER protocol Foods to avoid-nuts, corn, seeds, many questions, literature given reviewed in detail Avoid straining with hemorrhoid Maintain high-fiber diet Encouraged to call questions or concerns Coding Level of Care Code Est Pt Level 3 (54676) Diagnoses Sessile serrated polyp of colon D12.6 Diverticulosis of colon K57.30 Hemorrhoids K64.9 Time Spent (min) 30
[2023-07-30 09:51] VITALS: BP 131/66; PULSE 70; BMI 26.6
== END 2023-07-30 11:12 | disposition home or self-care (01) ==
PROVIDERS: PCP Nurse Practitioner Family; Visit Provider Physician Assistant
DX: D12.6 Benign neoplasm of colon, unspecified (principal); K57.30 Diverticulosis of large intestine without perforation or abscess without bleeding; K64.9 Unspecified hemorrhoids
CPT/HCPCS: 99213

== ENCOUNTER → 2023-07-30 09:47 | Outpatient (BNVA) | payer MEDICARE, MEDICAID, SELFPAY | PROVIDERS: PCP Nurse Practitioner Family; Visit Provider Physician Assistant | DX: K57.30 Diverticulosis of large intestine without perforation or abscess without bleeding (principal); K64.9 Unspecified hemorrhoids; D12.6 Benign neoplasm of colon, unspecified | CPT/HCPCS: 99212 ==

== ENCOUNTER 2023-08-27 09:00 | Outpatient (RCR) | payer MEDICARE, MEDICAID, SELFPAY ==
--- NOTE | 2023-08-05 09:55 | MHC.PT.EP ---
[facility] [place] Office [place] Office [place] Office [address] Taylor Benítez [address] [phone] F: [phone] F: [phone] F: [phone] F: [phone] Physical Therapy Plan of Care Date of Evaluation: 08/05/23 Date of Surgery: none Diagnosis: bilateral hip pain Assessment: Patient is a 68 year old R handed female who presents with s/s consistent with bilateral hip pain. She works with daily job demands including mostly standing. Patient past medical history includes chronic hip and back pain. Current impairments include pain, posture, ROM, strength, activity tolerance, gait mechanics, and functional mobility. Functional limitations include decreased ability to stand, transfer, walk, negotiate stairs, and perform heavier standing activities. Patient is motivated with good rehab potential. Skilled PT will address impairments and functional limitations in order to achieve goals. Frequency and Duration: The patient will be seen 2x/week for 5 weeks Short Term Goals: I with HEP - 2 weeks Able to complete work day with max pain - 4/10 - 3 weeks TTP absent - R lumbar and piriformis - 3 weeks centralized s/s - 3 weeks Software Quality Specialist Goals: Symmetrical gait pattern - 5 weeks Hip strength 4+/5 grossly - 5 weeks Max pain with daily activities 2/10 - 5 weeks LEFS 56/80 or better - 5 weeks Treatment Plan: Modalities to reduce pain, spasms and effusion. Manual therapy to restore motion and function. Therapeutic exercise to improve strength and flexibility. Neuromuscular re-education for posture and balance. Therapeutic activities to return to functional activities of daily living. Electronically signed by: Romain Bonilla, PT Please sign and return to therapist. Thank you for your referral.
--- NOTE | 2023-12-11 14:32 | MHC.PT.DC ---
[facility] [place] Office [place] Office [place] Office [address] [phone] F: [phone] F: [phone] F: [phone] F: [phone] Physical Therapy Discharge Report Diagnosis: bilateral hip pain Date of Surgery: none Date of Evaluation: 08/05/23 Date of Discharge: 09/12/23 Treatments to Date: 4 Cancellations to Date: No Shows to Date: Discharge Status: Independent with HEP Patient Elected to Stop Discharge Summary: Pt has an HEP and did express intended compliance before deciding to d/c from PT. 08/26; Pt feels manual is helping and stretches loosen her muscles. 08/20/23: pt with significant tissue tension still in R piriformis. compliant with HEP. continue to progress as tolerated with hip strength and tissue tension relieving techniques. 08/12; Pt noted some relief after RX. Pt R GT TTP. NV start hip strengthening and dispense exs. ? ionto phoresis Patient is a 68 year old R handed female who presents with s/s consistent with bilateral hip pain. She works with daily job demands including mostly standing. Patient past medical history includes chronic hip and back pain. Current impairments include pain, posture, ROM, strength, activity tolerance, gait mechanics, and functional mobility. Functional limitations include decreased ability to stand, transfer, walk, negotiate stairs, and perform heavier standing activities. Patient is motivated with good rehab potential. Skilled PT will address impairments and functional limitations in order to achieve goals. Electronically signed by: Romain Bonilla, PT Please sign and return to therapist. Thank you for your referral.
== END 2023-12-11 14:34 | disposition home or self-care (01) ==
LOC: HO.PTCHIC 09:00
PROVIDERS: PCP Nurse Practitioner Family; Visit Provider Nurse Practitioner Family
DX: G89.29 Other chronic pain (principal); M25.551 Pain in right hip; M25.552 Pain in left hip
CPT/HCPCS: 97110; 97140; 97162

== ENCOUNTER 2023-08-30 09:11 | Outpatient (REF) | payer MEDICARE, MEDICAID, SELFPAY | END 2023-08-30 09:12 | disposition home or self-care (01) | LOC: HO.MAMMO 09:11 | PROVIDERS: PCP Nurse Practitioner Family; Visit Provider Nurse Practitioner Family | DX: Z12.31 Encounter for screening mammogram for malignant neoplasm of breast (principal) | CPT/HCPCS: 77063; 77067 ==

== ENCOUNTER → 2023-08-30 09:15 | Outpatient (BNV) | payer MEDICARE, MEDICAID, SELFPAY | PROVIDERS: PCP Nurse Practitioner Family; Visit Provider Radiology Diagnostic Radiology | DX: Z12.31 Encounter for screening mammogram for malignant neoplasm of breast (principal) | CPT/HCPCS: 77063; 77067 ==

== ENCOUNTER 2023-09-06 06:46 | Emergency (ER) | payer MEDICARE, MEDICAID, SELFPAY ==
--- NOTE | 2023-09-06 | ECG_ITS ---
Test Reason : htn Blood Pressure : / mmHG Vent. Rate : 057 BPM Atrial Rate : 057 BPM P-R Int : 174 ms QRS Dur : 084 ms QT Int : 426 ms P-R-T Axes : 073 -02 016 degrees QTc Int : 414 ms Sinus bradycardia Otherwise normal ECG When compared with ECG of 12-DEC-2022 14:53, No significant change was found Referred By: Generic ED Physician Electronically Signed By:CHRIS CAMP
--- NOTE | ~2023-09-06 | CT_ITS ---
EXAMINATION: CT ANGIOGRAM OF THE CHEST WITH AND WITHOUT CONTRAST (CT PULMONARY ANGIOGRAM FOR PE) CLINICAL INFORMATION: Reason for Exam Chest pain, shortness of breath, elevated D-dimer, COMPARISON: CT pulmonary angiogram on 12/12/2022 TECHNIQUE: Prior to contrast administration, noncontrast localization images were obtained. Subsequently, multidetector volumetric imaging was performed from the thoracic inlet to below the diaphragms following the administration of 65 mL Omnipaque 350 intravenous contrast. No contrast reaction reported Sagittal, coronal, and MIP oblique sagittal reformatted images were obtained on the CT workstation, uploaded to PACS, and reviewed. This CT examination was performed using dose optimization techniques as appropriate, variously including the following: *Automated exposure control *Adjustment of mA and/or kV according to patient size (this includes techniques or standardized protocols for targeted exams where dose is matched to indication/reason for exam; i.e. extremities or head) *Use of iterative reconstruction technique Total exam dose-length product 332.51 mGy-cm FINDINGS: PULMONARY ARTERIES: The main pulmonary arteries, lobar and segmental arterial branches show adequate enhancement without filling defects. Main pulmonary trunk measures 321 Hounsfield units in mean attenuation. LUNGS: Paraseptal emphysematous bullae are seen along the pleural border of right upper lobe apical segment. -Nodule #1 (Series 7, image 108): 3.9 mm solid nodule, posterior pleural border of right lower lobe superior segment, previously 4 mm. -Nodule #2 (Series 7, image 162): 3.5 mm solid nodule, posterior pleural border of right lower lobe superior segment, previously 3.5 mm. PLEURA: No pleural effusion or pneumothorax is seen. PERICARDIUM: No pericardial effusion is seen. MEDIASTINUM AND MARY: No abnormally enlarged mediastinal or hilar lymph nodes are seen. TRACHEOBRONCHIAL TREE: Trachea and bilateral mainstem bronchi are patent. THORACIC AORTA: The thoracic aorta shows fusiform ectasia in the ascending aorta measuring 3.7 cm in AP diameter, 3.8 cm in width and smoothly patent. CORONARY ARTERY CALCIFICATIONS: Absent CHEST WALL AND LOWER NECK: The subcutaneous and muscular chest wall are intact with no focal lesion. There is diffuse enlargement of the thyroid gland. A small focal calcification is incompletely visualized at the uppermost image of the left thyroid lobe. No abnormal mass lesion could be seen in the visualized lower neck. BONES: No fracture or dislocation. No focal bone lesion diagnostic of metastatic disease could be seen in the thorax. VISUALIZED UPPER ABDOMEN: Bilateral adrenal glands are not enlarged. CT/CT angio chest PE protocol IMPRESSION: 1. Unchanged, No evidence of pulmonary embolism. 2. Fusiform ectasia of the ascending aorta measuring 3.7 cm in AP diameter, 3.8 cm in width and smoothly patent. 3. Unchanged Paraseptal emphysematous bullae along the pleural border of right upper lobe apical segment. 4. Stable small solid nodules in the right lower lobe superior segment. 5. Unchanged Diffuse goiter and left thyroid lobe calcification, previously evaluated with ultrasound examination of the neck on 03/01/2022. According to the UPDATED 2017 Fleischner Society recommendations, the advised follow-up imaging for solid nodules <6 mm in the middle/lower lobes is no routine follow up. VTE: negative. Fleischner guidelines were followed.
--- NOTE | ~2023-09-06 | CT_ITS ---
EXAMINATION: CT HEAD WITHOUT CONTRAST CLINICAL INFORMATION: Left leg numbness, intermittent COMPARISON: 06/16/2019 TECHNIQUE: Contiguous axial imaging was performed from the skull base to vertex without intravenous administration of contrast. This CT examination was performed using dose optimization techniques as appropriate, variously including the following: *Automated exposure control *Adjustment of mA and/or kV according to patient size (this includes techniques or standardized protocols for targeted exams where dose is matched to indication/reason for exam; i.e. extremities or head) *Use of iterative reconstruction technique DLP: 631 mGy-cm FINDINGS: There is no interval change in appearance of normal intracranial structures without evidence of hemorrhage, territorial ischemic or hemorrhagic stroke. No masses, mass effect, midline shift. Perrin to white matter differentiation is preserved and there are no extra-axial collections or hydrocephalus. Ventricles and sulci appropriate for age. Mastoids, visualized sinuses are unremarkable. There is no fracture seen. CT/CT head/brain wo IV con IMPRESSION: No acute intracranial abnormalities. Normal study
--- NOTE | ~2023-09-06 | XR_ITS ---
EXAMINATION: XR CHEST CLINICAL INFORMATION: Shortness of breath. History of tobacco abuse. COMPARISON: 12/12/2022 TECHNIQUE: Frontal view of the chest was obtained. FINDINGS: The lungs are well expanded. Patchy airspace disease at the lung bases with coarsened interstitial markings. No pleural effusion. Cardiac silhouette is unchanged. XR/XR chest 1V IMPRESSION: Patchy airspace disease at the lung bases with coarsened interstitial markings. This may represent pneumonia. Advise clinical correlation.
[2023-09-06 07:01] VITALS: BP 167/88; PULSE 62; RESP 18; TEMP 36.6; O2SAT 97; BMI 26.8
--- NOTE | 2023-09-06 07:13 | PC.NURSE ---
Pt comes from home for left arm pain/numbness starting last night that subsided then came back in the morning. Equal strength bilaterally, neuros intact. A/ox4, respirations even and unlabored, lung sounds cta bilaterally, S1 and S2 heard, abdomen soft non-tender, normo-active bowel sounds. 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
--- NOTE | 2023-09-06 07:20 | ED.GENADULT ---
HPI - General Adult General Chief complaint: General Medical Stated complaint: left arm/side pain Time Seen by Provider: 09/06/23 07:18 Source: patient Mode of arrival: ambulatory Limitations: no limitations History of Present Illness ED Provider: Dr. Shant Araujo HPI narrative: 68-year-old female with a history of hypertension, hyperlipidemia, hypothyroidism, AAA, migraines who presents emergency department for evaluation of left arm pain, left leg pain, shortness of breath. Patient states that yesterday around 17:00 hours she developed left arm pain. She describes it as a sharp pain which was proximally 8/10. She points to her biceps area when asked to localize the pain. She states the pain lasted about 30 minutes and she had 2 episodes. Patient states she was not do anything strenuous at the time of the onset of the pain and that she was hosting a barbecue for her family. The patient states that this morning she woke up short of breath. She used her inhaler with some relief. She denied chest pain but she did feel lightheaded as if the room was spinning. She then developed left arm pain and left leg pain. Again the pain lasted approximately 30 minutes and then resolved. She states that she has had several episodes this morning. At the time my evaluation she has no pain. She did take aspirin 325 mg x 3 prior to coming to the emergency department. She states that she currently feels like her left arm and left leg are numb and feel like ?wood?. She states this is the 1st time she has had these symptoms. She does have associated shortness of breath and nausea. She states she does smoke cigarettes for 50 years and has chronic dyspnea on exertion which is not changed. She denied fever, chills, rhinorrhea, sore throat, cough, swelling of her arms or legs, she has not taking estrogen supplements. She has not gone on any long trips. She denied headache, change in her vision, difficulty speaking or difficulty with word finding. Related Data Home Medications ?Medication ?Instructions ?Recorded ?Confirmed cholecalciferol (vitamin D3) 25 25 mcg PO DAILY 02/27/22 07/30/23 mcg (1,000 unit) capsule omega-3 acid ethyl esters 1 gram 1 cap PO BID 02/27/22 07/30/23 capsule Previous Rx's ?Medication ?Instructions ?Recorded ibuprofen 600 mg tablet 600 mg PO Q8H PRN pain #14 tabs 12/23/21 SI joint Belt #1 ea 01/11/22 Gait belt #1 ea 01/15/22 metoprolol succinate 25 mg 25 mg PO DAILY 90 days #90 tabs 02/16/23 tablet,extended release 24 hr nicotine (polacrilex) 4 mg buccal 4 mg buccal Q6H PRN nicotine 02/17/23 mini lozenge cravings #81 ambrosio lisinopril 20 1 tab PO DAILY #90 tabs 02/20/23 mg-hydrochlorothiazide 25 mg tablet amlodipine 2.5 mg tablet 2.5 mg PO DAILY 90 days #90 tabs 03/13/23 aspirin 81 mg tablet,delayed 81 mg PO DAILY 90 days #90 tabs 03/13/23 release (Adult Low Dose Aspirin) multivitamin (Daily Multi-Vitamin 1 tab PO DAILY 90 days #90 tabs 05/12/23 tablet) ezetimibe 10 mg tablet 10 mg PO DAILY 90 days #90 tabs 06/10/23 rosuvastatin 40 mg tablet 40 mg PO DAILY 90 days #90 tabs 08/09/23 lorazepam 1 mg tablet (Ativan) 1 mg PO TID PRN anxiety #10 tabs 09/06/23 Allergies Allergy/AdvReac Type Severity Reaction Status Date / Time Wellbutrin AdvReac Unknown worsening Uncoded 09/06/23 07:02 mood, dizziness Review of Systems Review of Systems: Yes all other systems are reviewed and are negative FOR[facility]LY [facility], [facility] Past Medical History Attestation statement: The following information was validated with the patient. Medical History (Updated 09/06/23 @ 17:33 by Shant Araujo MD) Hyperthyroidism Left thyroid nodule Liver lesion, right lobe Tubular adenoma of colon (~2013) History of COVID-19 Elevated liver enzymes Postmenopausal Parotiditis Elevated systolic blood pressure reading with diagnosis of hypertension AAA (abdominal aortic aneurysm) Migraines Elevated fasting glucose Dyslipidemia Back pain Surgical History History of colonoscopy Family History Family History Mother Thyroid cancer Daughter No problems noted. Father Stroke Social History Social History (Updated 07/30/23 @ 10:26 by Jazmyn Alba PA-C) Housing: House Alcohol intake: current Alcohol intake frequency: a few times a month Alcohol type: wine Patient Tobacco Use Status: Current everyday Tobacco user Tobacco use type: Cigarette Cigarettes Per Day: 3 Years Smoked: (onset 19yo, 1ppd x 47yrs, 40+PYH) Smoked in Last 30 Days: Yes e-Cigarette/Vaping Use: Never Used Second Hand Smoke Exposure: Yes Use of substances other than those prescribed or required for medical reasons: No Advance Directives: No service: No Current occupational status: retired Current occupation: [employer] Gender identity: Female Cognitive needs: No Hearing needs: No Vision needs: No Physical Exam ED Vital Signs: Vital Signs - 24 hr 09/06/23 07:01 09/06/23 11:12 09/06/23 14:35 Temperature 97.9 F 97.9 F Pulse Rate 62 57 55 Respiratory Rate 18 20 16 Blood Pressure 167/88 H 135/72 121/67 Pulse Oximetry 97 98 94 Oxygen Delivery Method Room Air Room Air Room Air 09/06/23 16:55 Temperature Pulse Rate 56 Respiratory Rate 20 Blood Pressure Pulse Oximetry 92 Oxygen Delivery Method Room Air BMI result Body Mass Index 26.8 Vital signs revealed an elevated blood pressure of 167/88, patient did take her blood pressure medications just prior to coming to the emergency department. Respiratory rate was slightly elevated at 18. O2 saturation was normal at 97% on room air Exam: General: Awake, alert in no distress Head: Normocephalic, atraumatic EENT: PERRL, Lids normal, sclera normal, conjunctiva normal, nose normal , ears normal, throat without erythema or exudates Neck: Supple, no adenopathy Lung: breath sounds symmetric, no wheezing, rales or rhonchi Chest: symmetric movement, nontender Heart: regular rate and rhythm, normal S1, S2 no murmurs or rubs Abdomen: soft, non-tender, nondistended, normal bowel sounds Back: no vertebral tenderness, no CVAT Extremities: no deformities, moves all extremities symmetrically Neuro: Awake, alert, oriented, normal speech, cranial nerves intact, moves all extremities symmetrically, patient does have some slight diminished light touch on the left upper and lower extremities compared to the right Psych: Pleasant, cooperative Medications Administered Discontinued Medications Generic Name Dose Route Start Last Admin Trade Name Freq PRN Reason Stop Dose Admin Iohexol 65 ml 09/06/23 16:18 09/06/23 16:18 Iohexol 350 Mg/Ml 100 Ml Infus..Btl IV 09/06/23 16:19 65 ml ONCE ONE Administration Lorazepam 1 mg 09/06/23 08:52 09/06/23 09:06 Lorazepam 2 Mg/Ml Vial IVPUSH 09/06/23 08:53 1 mg STAT STA Administration Lorazepam 1 mg 09/06/23 15:04 09/06/23 15:26 Lorazepam 2 Mg/Ml Vial IVPUSH 09/06/23 15:05 1 mg STAT STA Administration Medical Decision Making Medical Decision Making [facility] Narrative: 68-year-old female with a history of hypertension, hyperlipidemia, hypothyroidism, AAA, migraines who presents emergency department for evaluation of intermittent left arm pain, left leg pain, left arm and left leg numbness, shortness of breath and lightheadedness. Patient's symptoms began yesterday at 17:00 hours, she was not exerting herself at that time she developed left arm pain which lasted 30 minutes and she had 2 episodes. She woke up this morning feeling short of breath used her inhaler with no relief. She then developed intermittent left arm and left leg pain and numbness which was intermittent. She took aspirin 325 mg x 3 pills with and she currently states she has no pain. This is the patient's 1st episode of these symptoms. She has not noted any swelling of her upper or lower extremities, she has not on estrogen supplements and has not gone on any long trips. Currently she states that her left arm and left leg feel numb which she describes her extremities feeling like ?wood ?. Vital signs revealed an elevated blood pressure and elevated respiratory rate of 18 otherwise unremarkable. Patient's exam revealed no swelling of her upper lower extremities, normal neurologic exam with slight diminished light touch sensation in the left upper and lower extremity compared to the right. Differential diagnosis: ?Includes but is not limited to myocardial infarction, myocardial infarction, TIA, stroke, DVT of the upper/lower extremities, electrolyte abnormalities, anemia, stress, anxiety Following evaluation was ordered: CBC, CMP, CK, D-dimer, PTT, troponin, BNP, CRP, ESR, lipase, magnesium, CT scan of the brain without IV contrast, chest x-ray one view, EKG Patient was treated with the following: IV insert, cardiac monitoring, O2 saturation monitoring Course: 17:23 My interpretation patient's laboratory evaluation as follows: CBC was normal. D-dimer was elevated 293. CMP was normal. CK was elevated 241. First troponin was below detectable limits, 3 hour troponin was also below detectable limits which is reassuring. LFTs were normal. ESR was normal. CRP was normal. CT scan of the head revealed no significant abnormalities to explain the patient's left-sided symptoms. Radiology was concerned that the chest x-ray had bilateral lower lobe infiltrates however CT pulmonary angiogram revealed no significant evidence for pneumonia and no pulmonary embolism. Patient was multiple incidental findings that are not new. I did discuss the negative workup with the patient. The patient states she has been under increased stress especially since she did have a lot of people visiting for the holidays. The patient will be treated with Ativan 1 mg pills, 1 every 6 hours and at night as needed for stress, anxiety and insomnia. She was given printed and verbal instructions and discharged home. Admission/Observation Consideration of admission/observation: Escalation of care including admission/observation considered Lab Data MDM Lab Attestation statement: I reviewed the patient's lab results. 09/06/23 07:54 09/06/23 07:54 Labs: Lab Results 09/06/23 09/06/23 Range/Units 07:54 11:10 WBC 6.2 (4.8-10.8) X10*3/uL RBC 5.02 (4.20-5.50) X10*6/uL Hgb 14.9 (12.0-16.0) g/dl Hct 43.6 (37.0-47.0) % MCV 86.9 (80.0-98.0) fL MCH 29.7 (27.0-33.0) pg MCHC 34.2 (31.0-35.0) g/dl RDW 12.9 (11.0-16.0) % Plt Count 177 (160-400) X10*3/uL MPV 10.6 (9.4-12.3) fL Immature Gran % (Auto) 0.2 (0.0-0.4) % Neut % (Auto) 72.6 (45-73) % Lymph % (Auto) 17.8 L (20-40) % [place] % (Auto) 7.3 (2-11) % Eos % (Auto) 1.6 (0-4) % Baso % (Auto) 0.5 (0-2) % Lymph # (Auto) 1.1 L (1.2-4.9) X10*3/uL [place] # (Auto) 0.5 (0.1-1.2) X10*3/uL Eos # (Auto) 0.1 (0.0-0.4) X10*3/uL Baso # (Auto) 0.0 (0.0-0.2) X10*3/uL Abs Immat Gran (auto) 0.01 (0.00-0.03) X10*3/uL Absolute Neuts (auto) 4.5 (2.0-8.3) x10*3/uL Absolute Nucleated RBC 0.000 (0.0-0.012) X10*3/uL Nucleated RBC % (auto) 0.0 (0.0-0.2) /100WBC ESR 12 (0-20) MM/HR APTT 29.9 (26.0-36.8) SEC D-Dimer High Sensitivty 293 NG/ML Sodium 142 (135-145) mmol/L Potassium 3.8 (3.3-5.1) mmol/L Chloride 103 (96-108) mmol/L Carbon Dioxide 29 (22-29) mmol/L Anion Gap 14 (12-20) BUN 19 H (9-16) mg/dL Creatinine 0.83 (0.5-1.4) mg/dL Estim Creat Clear Calc 71.6 Estimated GFR > 60 Random Glucose 110 (60-115) mg/dL Calcium 9.6 (8.4-10.2) mg/dL Magnesium 1.8 (1.6-2.6) mg/dL Total Bilirubin 0.7 (0.0-1.0) mg/dL AST 28 (5-31) U/L ALT 28 (0-31) U/L Alkaline Phosphatase 51 (39-117) U/L Total Creatine Kinase 241 H (26-140) U/L Troponin I High Sens < 2.7 < 2.7 (<3.5-17.0) ng/L C-Reactive Protein < 0.10 (< or = 0.50) mg/dL B-Natriuretic Peptide < 10 (<100) pg/mL Total Protein 7.1 (6.5-8.0) g/dL Albumin 4.2 (3.5-5.0) g/dL Lipase 37 (8-78) U/L Independent Interpretation I performed an independent interpretation of an: EKG Interpretation: My interpretation of the patient's 12 EKG done at 00:17 hours is as follows: Sinus bradycardia with a rate of 57, no ST segment elevation, no ST segment depression, no PACs, no PVCs, no significant T-wave abnormalities, except for the bradycardia this is a normal EKG. Of note, the patient does take a beta halina-metoprolol. Radiology Impression Discussion of test interpretation with radiology: I have reviewed the radiologist's reading. Radiologist Impression: CT head/brain wo IV con IMPRESSION: No acute intracranial abnormalities. Normal study Dictated By: Scooter Miller MD XR chest 1V IMPRESSION: Patchy airspace disease at the lung bases with coarsened interstitial markings. This may represent pneumonia. Advise clinical correlation. Dictated By: Sheryl Brink MD CT angio chest PE protocol IMPRESSION: 1. Unchanged, No evidence of pulmonary embolism. 2. Fusiform ectasia of the ascending aorta measuring 3.7 cm in AP diameter, 3.8 cm in width and smoothly patent. 3. Unchanged Paraseptal emphysematous bullae along the pleural border of right upper lobe apical segment. 4. Stable small solid nodules in the right lower lobe superior segment. 5. Unchanged Diffuse goiter and left thyroid lobe calcification, previously evaluated with ultrasound examination of the neck on 03/01/2022. According to the UPDATED 2017 Fleischner Society recommendations, the advised follow-up imaging for solid nodules <6 mm in the middle/lower lobes is no routine follow up. VTE: negative. Fleischner guidelines were followed. Dictated By: Bereket White External Record Review External record reviewed: Other ([place] prescription monitoring program) Prescription Management I considered prescription management with: Other (Anti anxiolytics) Chronic Conditions Patient?s care impacted by: Other (Hyperlipidemia, hypothyroidism) Critical Care Time Critical Care Time Critical Care Time: Yes Total Critical Care Time: 45 Attestation: Critical Care: The patient was critically ill with a high probability of imminent or life threatening deterioration. I spent greater than 30 minutes of discontinuous time evaluating the patient,delivering critical care at the bedside, discussing and evaluating pertinent data with consultants. Critical care time does not include time spent performing separately billable procedures or teaching. Total time spent performing critical care was 45 minutes. Discharge Plan Discharge Clinical Impression: Paresthesia of left arm and leg, Chest pain, Acute dyspnea Patient Disposition: Home, Self-Care Additional Instructions: Your CT scan of your head was unremarkable with no evidence of a stroke or bleed in the brain which is reassuring. The CT pulmonary angiogram of your chest revealed no blood clots in your chest, no evidence of pneumonia. Your EKG was unremarkable, your high sensitive troponin I (marker of heart damage) was below detectable limits and the repeat 3 hour troponin was also below detectable limits suggesting that you did not have a heart attack or heart damage as the cause of your chest pain. This time I do not have a clear cause for your symptoms but they may be related to stress and anxiety. Take Ativan 1 mg pills, 1 pill every 6 hours as needed for anxiety. ?This medication will make you sleepy, do not drive or work while taking this medication. ?This medication can be addicting, if your concerned about addiction you can ask the pharmacist for less medications or do not get the prescription filled. Follow-up with your doctor in 2 days. Please return to the emergency department if your symptoms get worse or if you develop any symptoms that are concerning to you. Prescriptions: New lorazepam [Ativan] 1 mg tablet 1 mg PO TID PRN (Reason: anxiety) Qty: 10 0RF Rx Instructions: Patient may request partial fill No Action (DME) SI joint Belt See Rx Instructions .Route .MEDSUPPLY Qty: 1 0RF Rx Instructions: As directed (DME) Gait belt Misc See Rx Instructions .Route Qty: 1 0RF Rx Instructions: daily use for lumbar support metoprolol succinate 25 mg tablet extended release 24 hr 25 mg PO DAILY 90 Days Qty: 90 1RF nicotine (polacrilex) 4 mg mini lozenge 4 mg buccal Q6H PRN (Reason: nicotine cravings) Qty: 81 1RF lisinopril-hydrochlorothiazide 20-25 mg tablet 1 tab PO DAILY Qty: 90 1RF amlodipine 2.5 mg tablet 2.5 mg PO DAILY 90 Days Qty: 90 1RF aspirin [Adult Low Dose Aspirin] 81 mg tablet,delayed release (DR/EC) 81 mg PO DAILY 90 Days Qty: 90 1RF multivitamin [Daily Multi-Vitamin] Tablet 1 tab PO DAILY 90 Days Qty: 90 1RF ezetimibe 10 mg tablet 10 mg PO DAILY 90 Days Qty: 90 1RF rosuvastatin 40 mg tablet 40 mg PO DAILY 90 Days Qty: 90 1RF cholecalciferol (vitamin D3) 25 mcg (1,000 unit) capsule 25 mcg PO DAILY omega-3 acid ethyl esters 1 gram capsule 1 cap PO BID ibuprofen 600 mg tablet 600 mg PO Q8H PRN (Reason: pain) Qty: 14 0RF Print Language: Armenian
[2023-09-06 08:00] LABS: MANUAL DIFF FLAG NO
[2023-09-06 08:04] LABS: Basophils Percent Auto 0.5 % (0-2); Eosinophils Absolute Auto 0.1 X10*3/uL (0.0-0.4); Eosinophils Percent Auto 1.6 % (0-4); Hematocrit 43.6 % (37.0-47.0); Hemoglobin 14.9 g/dl (12.0-16.0); Imm Gran Abs Auto 0.01 X10*3/uL (0.00-0.03); Imm Gran Pct Auto 0.2 % (0.0-0.4); Lymphocytes Absolute Auto 1.1 X10*3/uL (1.2-4.9); Lymphocytes Percent Auto 17.8 % (20-40); Mean Corpuscular HGB Conc 34.2 g/dl (31.0-35.0); Mean Corpuscular Hemoglobin 29.7 pg (27.0-33.0); Mean Corpuscular Volume 86.9 fL (80.0-98.0); Mean Platelet Volume 10.6 fL (9.4-12.3); Monocytes Absolute Auto 0.5 X10*3/uL (0.1-1.2); Monocytes Percent Auto 7.3 % (2-11); Neutrophils Absolute Auto 4.5 x10*3/uL (2.0-8.3); Neutrophils Percent Auto 72.6 % (45-73); Platelet Count 177 X10*3/uL (160-400); Red Blood Count 5.02 X10*6/uL (4.20-5.50); Red Cell Distribution Width 12.9 % (11.0-16.0); White Blood Count 6.2 X10*3/uL (4.8-10.8)
[2023-09-06 08:12] LABS: D Dimer High Sensitivity 293 NG/ML; Partial Thromboplastin Time 29.9 SEC (26.0-36.8)
[2023-09-06 08:16] LABS: Alanine Aminotransferase 28 U/L (0-31); Albumin Level 4.2 g/dL (3.5-5.0); Alkaline Phosphatase 51 U/L (39-117); Anion Gap 14 (12-20); Aspartate Amino Transferase 28 U/L (5-31); Bilirubin Total 0.7 mg/dL (0.0-1.0); Blood Urea Nitrogen 19 mg/dL (9-16); C Reactive Protein < 0.10 mg/dL (< or = 0.50); Calcium 9.6 mg/dL (8.4-10.2); Carbon Dioxide 29 mmol/L (22-29); Chloride 103 mmol/L (96-108); Creatinine Clr Calc Pharmacy 71.6; Estimated Glomerular Filt Rate > 60; Glucose Random 110 mg/dL (60-115); Lipase 37 U/L (8-78); Magnesium 1.8 mg/dL (1.6-2.6); Potassium 3.8 mmol/L (3.3-5.1); Sodium 142 mmol/L (135-145); Total Protein 7.1 g/dL (6.5-8.0)
[2023-09-06 08:21] LABS: B Type Natriuretic Peptide < 10 pg/mL (<100)
[2023-09-06 08:28] LABS: Troponin-I High Sensitivity < 2.7 ng/L (<3.5-17.0)
[2023-09-06 08:52] LABS: Erythrocyte Sedimentation Rate 12 MM/HR (0-20)
[2023-09-06] MEDS: LORazepam 2 MG/ML VIAL 1 MG IVPUSH ×2 (09:06→15:26)
[2023-09-06 11:12] VITALS: BP 135/72; PULSE 57; RESP 20; TEMP 36.6; O2SAT 98
[2023-09-06 11:43] LABS: Troponin-I High Sensitivity < 2.7 ng/L (<3.5-17.0)
[2023-09-06 14:35] VITALS: BP 121/67; PULSE 55; RESP 16; O2SAT 94
[2023-09-06] MEDS: iohexoL 350 MG/ML 100 ML INFUS..BTL 65 ML IV (16:18)
[2023-09-06 16:55] VITALS: PULSE 56; RESP 20; O2SAT 92
[2023-09-06 17:43] VITALS: BP 120/68; PULSE 58; RESP 18; TEMP 36.6; O2SAT 98
== END 2023-09-06 17:45 | disposition home or self-care (01) ==
PROVIDERS: Emergency Provider Emergency Medicine Emergency Medical Services; PCP Nurse Practitioner Family
DX: R20.2 Paresthesia of skin (principal); R07.9 Chest pain, unspecified; R06.00 Dyspnea, unspecified; R06.02 Shortness of breath; I10 Essential (primary) hypertension; E78.5 Hyperlipidemia, unspecified; F17.210 Nicotine dependence, cigarettes, uncomplicated; Z79.82 Long term (current) use of aspirin; Z79.02 Long term (current) use of antithrombotics/antiplatelets; Z79.899 Other long term (current) drug therapy
CPT/HCPCS: 36415; 70450; 71045; 71275; 80053; 82550; 83690; 83735; 83880; 84484; 85025; 85379; 85652; 85730; 86140; 93005; 96374; 96375; 99284; 99285; J2060; Q9967

== ENCOUNTER → 2023-09-06 07:17 | Outpatient (BNV) | payer MEDICARE, MEDICAID, SELFPAY | PROVIDERS: Emergency Provider Emergency Medicine Emergency Medical Services; PCP Nurse Practitioner Family; Visit Provider Internal Medicine | DX: I10 Essential (primary) hypertension (principal) | CPT/HCPCS: 93010 ==

== ENCOUNTER 2023-12-11 07:55 | Outpatient (REF) | payer MEDICARE, MEDICAID, SELFPAY ==
[2023-12-11 09:58] LABS: MANUAL DIFF FLAG NO
[2023-12-11 10:11] LABS: Basophils Absolute Auto 0.1 X10*3/uL (0.0-0.2); Basophils Percent Auto 0.6 % (0-2); Eosinophils Absolute Auto 0.2 X10*3/uL (0.0-0.4); Eosinophils Percent Auto 1.7 % (0-4); Hematocrit 43.5 % (37.0-47.0); Hemoglobin 14.3 g/dl (12.0-16.0); Imm Gran Abs Auto 0.02 X10*3/uL (0.00-0.03); Imm Gran Pct Auto 0.2 % (0.0-0.4); Lymphocytes Absolute Auto 1.4 X10*3/uL (1.2-4.9); Lymphocytes Percent Auto 15.4 % (20-40); Mean Corpuscular HGB Conc 32.9 g/dl (31.0-35.0); Mean Corpuscular Hemoglobin 29.4 pg (27.0-33.0); Mean Corpuscular Volume 89.5 fL (80.0-98.0); Mean Platelet Volume 11.7 fL (9.4-12.3); Monocytes Absolute Auto 0.6 X10*3/uL (0.1-1.2); Monocytes Percent Auto 6.3 % (2-11); Neutrophils Absolute Auto 6.7 x10*3/uL (2.0-8.3); Neutrophils Percent Auto 75.8 % (45-73); Platelet Count 176 X10*3/uL (160-400); Red Blood Count 4.86 X10*6/uL (4.20-5.50); White Blood Count 8.9 X10*3/uL (4.8-10.8)
[2023-12-11 10:22] LABS: Appearance Urine Clear; Color Urine Yellow; Glucose Urine UA Negative (Negative); Leukocyte Esterase Urine Negative (Negative); Nitrite Urine Negative (Negative); UMIC TRIGGER UACC YES; Urine Blood Trace (Negative); Urine Ketones Negative (Negative); Urine Protein 100 (2+) mg/dL (Neg-Trace)
[2023-12-11 10:29] LABS: Bacteria Urine None Seen (None Seen); Hyaline Casts Urine 0-2 /LPF (0-2); RBC Urine 0-2 /HPF (0-2); Squamous Epithelial Cell Urine 0-2 /HPF (0-2); WBC Urine 0-5 /HPF (0-5)
[2023-12-11 10:37] LABS: Alanine Aminotransferase 27 U/L (0-31); Albumin Level 4.2 g/dL (3.5-5.0); Alkaline Phosphatase 47 U/L (39-117); Anion Gap 10 (12-20); Aspartate Amino Transferase 29 U/L (5-31); Bilirubin Total 0.9 mg/dL (0.0-1.0); Blood Urea Nitrogen 18 mg/dL (9-16); Calcium 9.3 mg/dL (8.4-10.2); Carbon Dioxide 31 mmol/L (22-29); Chloride 104 mmol/L (96-108); Cholesterol 153 mg/dL (<200); Estimated Glomerular Filt Rate > 60; Glucose Fasting 114 mg/dL (60-99); HDL Cholesterol 64 mg/dL (>40); LDL Cholesterol Calculated 56 mg/dL (<100); Potassium 3.7 mmol/L (3.3-5.1); Sodium 141 mmol/L (135-145); Total Protein 6.9 g/dL (6.5-8.0); Triglycerides 168 mg/dL (<150)
[2023-12-11 10:39] LABS: TSH reflex Free T4 0.62 uIU/mL (0.32-4.0); Vitamin D 25-OH Total 46.9 ng/mL (>30)
== END 2023-12-11 07:56 | disposition home or self-care (01) ==
LOC: HO.HMGCLDS 07:55
PROVIDERS: PCP Nurse Practitioner Family; Visit Provider Nurse Practitioner Family
DX: R53.83 Other fatigue (principal); E55.9 Vitamin D deficiency, unspecified
CPT/HCPCS: 36415; 80053; 80061; 81001; 81003; 82306; 84443; 85025

== ENCOUNTER 2023-12-12 08:11 | Outpatient (REF) | payer MEDICARE, MEDICAID, SELFPAY ==
[2023-12-12 12:23] LABS: Adenovirus PCR Not Detected (Not Detect.); Bordetella parapertussis PCR Not Detected (Not Detect.); Bordetella pertussis PCR Not Detected (Not Detect.); Chlamydia pneumoniae PCR Not Detected (Not Detect.); Coronavirus 229E PCR Not Detected (Not Detect.); Coronavirus HKU1 PCR Not Detected (Not Detect.); Coronavirus NL63 PCR Not Detected (Not Detect.); Coronavirus OC43 PCR Not Detected (Not Detect.); Human metapneumovirus PCR Not Detected (Not Detect.); Influenza A PCR Not Detected (Not Detect.); Influenza B PCR Not Detected (Not Detect.); Mycoplasma pneumoniae PCR Not Detected (Not Detect.); Parainfluenza 1 PCR Not Detected (Not Detect.); Parainfluenza 2 PCR Not Detected (Not Detect.); Parainfluenza 3 PCR Not Detected (Not Detect.); Parainfluenza 4 PCR Not Detected (Not Detect.); RSV PCR Not Detected (Not Detect.); Rhino/Enterovirus PCR Detected (Not Detect.)
[2023-12-12 13:12] LABS: SARS-CoV-2 PCR Not Detected (Not Detect.)
== END 2023-12-12 08:12 | disposition home or self-care (01) ==
LOC: HO.LAB 08:11
PROVIDERS: PCP Nurse Practitioner Family; Visit Provider Nurse Practitioner Family
DX: Z00.01 Encounter for general adult medical examination with abnormal findings (principal); R80.9 Proteinuria, unspecified; J98.9 Respiratory disorder, unspecified; R31.29 Other microscopic hematuria; J06.9 Acute upper respiratory infection, unspecified; R05.9 Cough, unspecified
CPT/HCPCS: 87633; 99212; 99397

== ENCOUNTER 2023-12-12 08:11 | Outpatient (AMB) | payer MEDICARE, MEDICAID, SELFPAY ==
[2023-12-12 08:13] VITALS: BP 140/80; PULSE 60; O2SAT 95; BMI 26.5
--- NOTE | 2023-12-12 08:13 | MHC.PC.OV ---
Vital Signs 12/12/23 08:13 Height 5 ft 7 in Weight 169 lb 2 oz BMI 26.5 BP 140/80 H Blood Pressure Location Rt brachial Position Sitting Pulse 60 Pulse Source Pulse Oximeter Pulse Oximetry (%) 95 Oxygen Delivery Method Room Air Intake Visit Reasons: PE w/ labs Intake Note: pt is here for PE with labs Cupola Tender Required: No Accompanied by: Self / Same As Patient Allergies Wellbutrin Adverse Reaction (Unknown, Uncoded 12/12/23 08:14) worsening mood, dizziness Medication List - Last Reconciled 12/12/23 by Harjinder Cerna, [facility] amlodipine 2.5 mg PO DAILY 90 days aspirin (Adult Low Dose Aspirin) 81 mg PO DAILY 90 days cholecalciferol (vitamin D3) 25 mcg PO DAILY ezetimibe 10 mg PO DAILY 90 days Gait belt daily use for lumbar support ibuprofen 600 mg PO Q8H PRN lisinopril-hydrochlorothiazide 20-25 mg 1 tab PO DAILY lorazepam (Ativan) 1 mg PO TID PRN metoprolol succinate ER 25 mg PO DAILY 90 days multivitamin (Daily Multi-Vitamin tablet) 1 tab PO DAILY 90 days nicotine (polacrilex) 4 mg buccal Q6H PRN omega-3 acid ethyl esters 1 cap PO BID rosuvastatin 40 mg PO DAILY 90 days [SI joint Belt As directed] Tobacco use date assessed: 12/12/23 Fall risk assessment: No Falls in past year Last assessed Fall Risk: 12/12/23 Dental Screening Dental Screen Date: 12/12/23 Did you have a dental visit in the last 12 months?: Yes Did you have a dental problem in the last 6 months where you did not have access to dental care?: No Was dental information given to patient?: Patient has dentist HPI PE w/ labs HPI Details Pt is here for a PE. Labs were already performed. Colon screen is up to date. Mammo is up to date. 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 Pt c/o cough since Saturday. She reports having a fever and chills last night. She reports increased mucus/phelgm and sore throat as well. Will swab for COVID/flu/RSV, other viral pathogens. Will also order chest XR. Will send azithromycin, prednisone, and guaifenesin with codeine (pt knows not to take this with lorazepam). Educated pt on risk of addiction, this is not a long-term med. Pt understands that they can not drive while taking this med, share this med, and to only take as prescribed. Pt is a smoker. Pt has a hx of proteinuria. Will refer to nephrology. Pt also has a hx of microhematuria. She was supposed to see urology, will look into this. [facility] Medical History Hyperthyroidism Left thyroid nodule Liver lesion, right lobe Tubular adenoma of colon (~2013) History of COVID-19 Elevated liver enzymes Postmenopausal Parotiditis Elevated systolic blood pressure reading with diagnosis of hypertension AAA (abdominal aortic aneurysm) Migraines Elevated fasting glucose Dyslipidemia Back pain Surgical History History of colonoscopy Family History Mother Thyroid cancer Daughter No problems noted. Father Stroke Social History Housing: House Alcohol intake: current Alcohol intake frequency: a few times a month Alcohol type: wine Patient Tobacco Use Status: Current everyday Tobacco user Tobacco use type: Cigarette Cigarettes Per Day: 3 Years Smoked: (onset 19yo, 1ppd x 47yrs, 40+PYH) e-Cigarette/Vaping Use: Never Used Second Hand Smoke Exposure: Yes service: No Current occupational status: retired Current occupation: [employer] Gender identity: Female Cognitive needs: No Hearing needs: No Vision needs: No Questionnaire PHQ-9 Over the last 2 weeks, how often have you been bothered by any of the following problems? 37319 - PHQ-9 Billing: Patient declined-do not bill Source: Developed by Drs. Faraz Brown, Deidre Hopson, Shaquille Ocampo and colleagues, with an educational astrid from [employer]. Thrive Questionnaire Date Thrive assessed: 12/12/23 I am a: Patient What is your living situation today?: I have a steady place to live Within the past 12 months, did the food you bought not last and you didn't have the money to get more?: Never true Within the past 12 months, did you worry whether your food would run out before you got money to buy more?: Never true Do you have trouble paying for medicines?: No Do you have trouble getting transportation to medical appointments?: No Do you have trouble paying your heating and electricity bill?: No Do you have trouble taking care of your child, family member or friend?: No Do you have trouble with day-to-day activities such as bathing, preparing meals, shopping, managing finances, etc.?: No Are you currently unemployed and looking for a job?: No Are you interested in more education?: No Please select the resources that you would like help with: None Currently or been in a relationship where the following occur: No concerns reported THRIVE Score: 0 AUDIT C Alcohol Use Questionnaire (AUDIT-C) 1. How often do you have a drink containing alcohol?: 4 or more times a week 2. How many drinks containing alcohol do you have on a typical day when you are drinking?: 1 or 2 3. How often do you have six or more drinks on one occasion?: Never Total Score: 4 Score Reviewed/Action Taken: Yes MODESTA-7 AMB Questionnaire MODESTA-7 Date MODESTA - 7 assessed: 12/12/23 Source: Developed by Drs. Faraz Brown, Deidre Hopson, Shaquille Ocampo and colleagues, with an educational astrid from [employer]. MODESTA-7 Assessment Billing MODESTA-7 Assessment Tool: pt declined-do not bill Review of Systems Const Reports chills and Reports fever(s) Eyes Denies blurry vision ENT Denies vertigo, Denies dizziness and Denies sore throat Card Denies chest pain at rest, Denies chest pain with activity, Denies diaphoresis, Denies dyspnea and Denies dyspnea on exertion Resp Reports cough, Denies dyspnea, Denies dyspnea on exertion and Denies wheezing GI Denies abdominal pain, Denies melena, Denies hematochezia, Denies constipation, Denies diarrhea and Denies loose stools Denies hematuria Musc Denies numbness and Denies tingling Skin/Breast Denies lesions Neuro Denies vertigo, Denies dizziness, Denies numbness and Denies tingling Psych Denies anxiety, Denies depression, Denies homicidal ideation, Denies suicidal ideation and Denies other (substance abuse) Aller/Immun Denies wheezing Physical exam (Primary Care) Vital Signs: Last Vital Signs Pulse 60 12/12/23 08:13 BP 140/80 H 12/12/23 08:13 Pulse Ox 95 12/12/23 08:13 Oxygen Delivery Method Room Air 12/12/23 08:13 BMI result Body Mass Index 26.5 Tobacco/Smoking Status: Tobacco use Status Tobacco use date assessed 12/12/23 12/12/23 08:17 Patient Tobacco Use Status Current everyday Tobacco 12/12/23 08:17 Tobacco use type Cigarette 12/12/23 08:17 e-Cigarette/Vaping Use Never Used 12/12/23 08:17 Thrive Assessment: Date of Thrive Assessment Date Thrive assessed 12/12/23 12/12/23 08:17 Currently or been in a relationship where the following occur: No concerns reported Const General: cooperative Nutritional Appearance: well nourished Orientation/consciousness: patient oriented x3 HENMT Head: Yes normal to inspection, Yes normocephalic and Yes atraumatic Ears: TM's normal bilaterally Eyes General: appearance normal, both eyes and all related structures Alignment and Position: alignment normal and position normal Neck Neck: Yes normal visual inspection, Yes no lymphadenopathy and Yes supple Resp Other: faint scattered wheezes Effort & Inspection: normal respiratory effort Cardio Rate: regular rate Rhythm: regular rhythm Heart sounds: S1 normal heart sound present, S2 normal heart sound present and no murmurs GI Palpation (GI): Soft to palpation and nontender Auscultation: normal bowel sounds Skin Rashes: no rashes Neuro General: patient oriented x3, moves all extremities, no focal motor deficits and deep tendon reflexes 2+ bilaterally Romberg Test: Negative Psych Appearance: grossly normal Mental Status: mental status grossly normal Speech and movement: Normal speech and movement present Affect: normal affect Attitude: cooperative Thought process: Normal thought process present Thought content: Normal thought content present Insight: Good insight present (Psych) Judgement: Good judgement present (Psych) Coding Level of Care Code Est Pt Level 3 (28845) Est Pt Prev Care >65y(30343) Diagnoses Proteinuria R80.9 Respiratory illness J98.9 Microscopic hematuria R31.29 Encounter for routine adult physical exam with abnormal findings Z00.01 Assessment & Plan Assessment & Plan (1) Proteinuria: Code(s): R80.9 - Proteinuria, unspecified Category: Medical Plan: Referred to nephrology (2) Respiratory illness: Code(s): J98.9 - Respiratory disorder, unspecified Category: Medical Plan: Antibiotic, prednisone, and cough medicine sent, viral swab done, chest XR ordered (3) Microscopic hematuria: Code(s): R31.29 - Other microscopic hematuria Category: Medical Plan: Checking into urology appointment (4) Encounter for routine adult physical exam with abnormal findings: Code(s): Z00.01 - Encounter for general adult medical examination with abnormal findings Category: Medical Plan: Labs already performed Plan The patient agreed to the use of a medical esthetician for this encounter. Scribed for PROSPER Carcamo- by gentry Wiseman scribe, on 12/12/2023 at 08:25 EST. Orders: Orders XR chest 2V Today J98.9 - Respiratory disorder, unspecified Resp [place] [facility] [place] J06.9 - Acute upper respiratory infection, unspecified, R05.9 - Cough, unspecified Referrals Nephrology Referral R80.9 - Proteinuria, unspecified Medications: New azithromycin For 250 mg dose pack: take 500 mg today (day 1), then 250 mg for 4 days (days 2-5) PO 6 tabs 0RF prednisone 50 mg PO DAILY 5 tabs 0RF codeine-guaifenesin 10-100 mg/5 mL do not take with lorazepam 5 mL PO Q6H PRN 120 mL 0RF flu symptoms
== END 2023-12-12 08:59 | disposition home or self-care (01) ==
PROVIDERS: PCP Nurse Practitioner Family; Visit Provider Nurse Practitioner Family
DX: Z00.01 Encounter for general adult medical examination with abnormal findings (principal); R80.9 Proteinuria, unspecified; J98.9 Respiratory disorder, unspecified; R31.29 Other microscopic hematuria

== ENCOUNTER 2023-12-23 16:09 | Outpatient (AMB) | payer MEDICARE, MEDICAID, SELFPAY ==
--- NOTE | 2023-12-23 16:12 | HO.NEPHOV_ITS ---
Vital Signs 12/23/23 16:13 Height 5 ft 7 in Weight 169 lb BMI 26.5 BP 116/62 Blood Pressure Location Lt brachial Position Sitting Pulse 65 Pulse Source Pulse Oximeter Pulse Oximetry (%) 96 Oxygen Delivery Method Room Air Intake Visit Reasons: Proteinuria/ Conf Medical Transcription Radiology Required: No Accompanied by: Self / Same As Patient Allergies Wellbutrin Adverse Reaction (Unknown, Uncoded 12/12/23 08:14) worsening mood, dizziness Medication List - Last Reconciled 12/23/23 by Erwin Agosto MD amlodipine 2.5 mg PO DAILY 90 days aspirin (Adult Low Dose Aspirin) 81 mg PO DAILY 90 days ezetimibe 10 mg PO DAILY 90 days Gait belt daily use for lumbar support ibuprofen 600 mg PO Q8H PRN lisinopril-hydrochlorothiazide 20-25 mg 1 tab PO DAILY metoprolol succinate ER 25 mg PO DAILY 90 days multivitamin (Daily Multi-Vitamin tablet) 1 tab PO DAILY 90 days nicotine (polacrilex) 4 mg buccal Q6H PRN omega-3 acid ethyl esters 1 cap PO BID PRN rosuvastatin 40 mg PO DAILY 90 days [SI joint Belt As directed] HPI Comments Details: Serenity is a pleasant 68-year-old man with a history of hypertension. Recently she was found to have proteinuria by urine dipstick and hence this referral. She has a history of chronic smoking. She has infrarenal abdominal aortic aneurysm measuring between 3.7-4 cm and currently being actively followed by Dr. Wood. He has no history of diabetes mellitus No history of any kidney issues in the past. No family history of kidney issues as well. [facility] Medical History Hyperthyroidism Left thyroid nodule Liver lesion, right lobe Tubular adenoma of colon (~2013) History of COVID-19 Elevated liver enzymes Postmenopausal Parotiditis Elevated systolic blood pressure reading with diagnosis of hypertension AAA (abdominal aortic aneurysm) Migraines Elevated fasting glucose Dyslipidemia Back pain Surgical History History of colonoscopy Family History Mother Thyroid cancer Daughter No problems noted. Father Stroke Social History (Reviewed 12/23/23 @ 16:15 by ASAF Davis Housing: House Alcohol intake: current Alcohol intake frequency: a few times a month Alcohol type: wine Patient Tobacco Use Status: Current everyday Tobacco user Tobacco use type: Cigarette Cigarettes Per Day: 3 Years Smoked: (onset 19yo, 1ppd x 47yrs, 40+PYH) e-Cigarette/Vaping Use: Never Used Second Hand Smoke Exposure: Yes service: No Current occupational status: retired Current occupation: [employer] Gender identity: Female Cognitive needs: No Hearing needs: No Vision needs: No Review of Systems Const Denies fever(s) and Denies weight loss Card Denies chest pain Resp Denies cough and Denies hemoptysis GI Denies abdominal pain, Denies diarrhea and Denies nausea Musc Denies back pain Neuro Denies focal weakness Physical Exam Vital Signs: Last Vital Signs Pulse 65 12/23/23 16:13 BP 116/62 12/23/23 16:13 Pulse Ox 96 12/23/23 16:13 Oxygen Delivery Method Room Air 12/23/23 16:13 BMI result Body Mass Index 26.5 Const General: comfortable; No acute distress Orientation/consciousness: patient oriented x3 Eyes General: appearance normal, both eyes and all related structures Visual Kimbrough: normal visual kimbrough by confrontation Neck Neck: Yes supple and Yes no JVD Resp Effort & Inspection: normal respiratory effort and respiratory effort not decreased Auscultation: rhonchi Cardio Palpation: no palpable S3 and no palpable S4 Heart sounds: no rubs GI Inspection: Yes normal to inspection Palpation (GI): Soft to palpation Percussion: Yes normal to percussion Auscultation: normal bowel sounds General: Yes no CVA tenderness Back/Spine/Pelvis Back: no CVA tenderness Skin General skin exam: no petechiae and no purpura Neuro General: patient oriented x3 and no focal motor deficits Extrem General: No clubbing and No edema Results Reviewed Nephrology Results: Hgb 14.3 g/dl (12.0-16.0) 12/11/23 WBC 8.9 X10*3/uL (4.8-10.8) 12/11/23 Plt Count 176 X10*3/uL (160-400) 12/11/23 Sodium 141 mmol/L (135-145) 12/11/23 Potassium 3.7 mmol/L (3.3-5.1) 12/11/23 Chloride 104 mmol/L (96-108) 12/11/23 Carbon Dioxide 31 mmol/L (22-29) H 12/11/23 BUN 18 mg/dL (9-16) H 12/11/23 Creatinine 0.77 mg/dL (0.5-1.4) 12/11/23 Calcium 9.3 mg/dL (8.4-10.2) 12/11/23 Urine Protein 100 (2+) mg/dL (Neg-Trace) H 12/11/23 Assessment & Plan Assessment & Plan (1) Proteinuria: Code(s): R80.9 - Proteinuria, unspecified Category: Medical (2) HTN (hypertension): Code(s): I10 - Essential (primary) hypertension Category: Medical (3) AAA (abdominal aortic aneurysm): Comment: (infrarenal AAA 3.7mm on 07/2021 -per [facility] Dr. Wood) Code(s): I71.4 - Abdominal aortic aneurysm, without rupture Category: Medical Plan 68-year-old woman with a dipstick positive proteinuria and essentially normal renal function. She has a history of hypertension. First step is to quantify the proteinuria. Ordered urine protein creatinine ratio and other baseline serologies. Goal is to slow the portion of renal disease Maintain blood pressure less than 130/80 continue with MAGDALENE inhibitor for renal protection. Encouraged her to stand low-sodium diet She returned to office once the baseline workup is completed. Orders: Orders UA and rflx microscopic Today I10 - Essential (primary) hypertension, R80.9 - Proteinuria, unspecified Creatinine Urine Today I10 - Essential (primary) hypertension, R80.9 - Proteinuria, unspecified Protein Electrophoresis, Serum Today I10 - Essential (primary) hypertension, R80.9 - Proteinuria, unspecified Basic Metabolic Panel Today I10 - Essential (primary) hypertension, R80.9 - Proteinuria, unspecified Total Protein Urine Random Today I10 - Essential (primary) hypertension, R80.9 - Proteinuria, unspecified Coding Level of Care Code New Pt Level 4 (99141) Diagnoses Proteinuria R80.9 HTN (hypertension) I10 AAA (abdominal aortic aneurysm) I71.4
[2023-12-23 16:13] VITALS: BP 116/62; PULSE 65; O2SAT 96; BMI 26.5
== END 2023-12-23 16:32 | disposition home or self-care (01) ==
PROVIDERS: PCP Nurse Practitioner Family; Referring Provider Nurse Practitioner Family; Visit Provider Internal Medicine Hypertension Specialist
DX: I71.43 Infrarenal abdominal aortic aneurysm, without rupture (principal); R80.9 Proteinuria, unspecified; I10 Essential (primary) hypertension
CPT/HCPCS: 99204

== ENCOUNTER → 2023-12-23 16:09 | Outpatient (BNVA) | payer MEDICARE, MEDICAID, SELFPAY | PROVIDERS: PCP Nurse Practitioner Family; Referring Provider Nurse Practitioner Family; Visit Provider Internal Medicine Hypertension Specialist | DX: R80.9 Proteinuria, unspecified (principal); I10 Essential (primary) hypertension; I71.40 Abdominal aortic aneurysm, without rupture, unspecified; F17.210 Nicotine dependence, cigarettes, uncomplicated | CPT/HCPCS: 99202 ==

== ENCOUNTER 2024-01-15 08:51 | Outpatient (AMB) | payer OTHER, MEDICAID, SELFPAY ==
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
[2024-01-15 09:01] VITALS: BP 112/64; PULSE 60; BMI 26.0
== END 2024-01-15 09:17 | disposition home or self-care (01) ==
PROVIDERS: PCP Nurse Practitioner Family; Visit Provider Internal Medicine Endocrinology, Diabetes & Metabolism
DX: E04.1 Nontoxic single thyroid nodule (principal)
CPT/HCPCS: 99213

== ENCOUNTER → 2024-01-15 08:51 | Outpatient (BNVA) | payer OTHER, MEDICAID, SELFPAY | PROVIDERS: PCP Nurse Practitioner Family; Visit Provider Internal Medicine Endocrinology, Diabetes & Metabolism ==

== ENCOUNTER 2024-01-16 14:47 | Outpatient (REF) | payer MEDICARE, MEDICAID, SELFPAY ==
[2024-01-16 16:16] LABS: Appearance Urine Clear; Color Urine Yellow; Glucose Urine UA Negative (Negative); Leukocyte Esterase Urine Trace (Negative); Nitrite Urine Negative (Negative); PH 6.5 (5.0-9.0); UMIC TRIGGER UA YES; Urine Blood Negative (Negative); Urine Ketones Negative (Negative); Urine Protein 30 (1+) mg/dL (Neg-Trace)
[2024-01-16 16:21] LABS: Bacteria Urine None Seen (None Seen); Hyaline Casts Urine 0-2 /LPF (0-2); RBC Urine 0-2 /HPF (0-2); Squamous Epithelial Cell Urine 0-2 /HPF (0-2); WBC Urine 0-5 /HPF (0-5)
[2024-01-16 17:54] LABS: Creatinine Urine 39.67 mg/dL; Total Protein Urine Random 22 mg/dL (<12)
[2024-01-16 18:22] LABS: Anion Gap 14 (12-20); Blood Urea Nitrogen 25 mg/dL (9-16); Calcium 9.7 mg/dL (8.4-10.2); Carbon Dioxide 31 mmol/L (22-29); Chloride 99 mmol/L (96-108); Estimated Glomerular Filt Rate 55; Glucose Random 107 mg/dL (60-115); Potassium 3.5 mmol/L (3.3-5.1); Sodium 140 mmol/L (135-145)
[2024-01-21 11:28] LABS: Prot Elec - Albumin 4.1 g/dL (3.8-4.8); Prot Elec - Alpha1 0.3 g/dL (0.2-0.3); Prot Elec - Alpha2 0.7 g/dL (0.5-0.9); Prot Elec - Beta 1 0.4 g/dL (0.4-0.6); Prot Elec - Beta 2 0.4 g/dL (0.2-0.5); Prot Elec - Gamma 0.8 g/dL (0.8-1.7); Prot Elec - Total Protein 6.7 g/dL (6.1-8.1)
== END 2024-01-16 14:48 | disposition home or self-care (01) ==
LOC: HO.HMGCLDS 14:47
PROVIDERS: PCP Nurse Practitioner Family; Visit Provider Internal Medicine Hypertension Specialist
DX: I10 Essential (primary) hypertension (principal); R80.9 Proteinuria, unspecified
CPT/HCPCS: 36415; 80048; 81001; 82570; 84156; 84165

== ENCOUNTER 2024-01-27 16:15 | Outpatient (AMB) | payer MEDICARE, MEDICAID, SELFPAY ==
--- NOTE | 2024-01-27 16:15 | HO.NEPHOV_ITS ---
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 Baggage Required: No Accompanied by: Self / Same As Patient Allergies Wellbutrin Adverse Reaction (Unknown, Uncoded 01/15/24 09:02) worsening mood, dizziness Medication List - Last Reconciled 01/27/24 by Erwin Agosto MD amlodipine 2.5 mg PO DAILY 90 days aspirin (Adult Low Dose Aspirin) 81 mg PO DAILY 90 days ezetimibe 10 mg PO DAILY 90 days Gait belt daily use for lumbar support ibuprofen 600 mg PO Q8H PRN lisinopril-hydrochlorothiazide 20-25 mg 1 tab PO DAILY metoprolol succinate ER 25 mg PO DAILY 90 days multivitamin (Daily Multi-Vitamin tablet) 1 tab PO DAILY 90 days nicotine (polacrilex) 4 mg buccal Q6H PRN omega-3 acid ethyl esters 1 cap PO BID PRN rosuvastatin 40 mg PO DAILY 90 days [SI joint Belt As directed] HPI Comments Details: Serenity is a pleasant 68-year-old man with a history of hypertension. Recently she was found to have proteinuria by urine dipstick and hence this referral. She has a history of chronic smoking. She has infrarenal abdominal aortic aneurysm measuring between 3.7-4 cm and currently being actively followed by Dr. Wood. He has no history of diabetes mellitus No history of any kidney issues in the past. No family history of kidney issues as well. 01/27/2024 Overall doing well. No new issues. [facility] Medical History Hyperthyroidism Left thyroid nodule Liver lesion, right lobe Tubular adenoma of colon (~2013) History of COVID-19 Elevated liver enzymes Postmenopausal Parotiditis Elevated systolic blood pressure reading with diagnosis of hypertension AAA (abdominal aortic aneurysm) Migraines Elevated fasting glucose Dyslipidemia Back pain Surgical History History of colonoscopy Family History Mother Thyroid cancer Daughter No problems noted. Father Stroke Social History Housing: House Alcohol intake: current Alcohol intake frequency: a few times a month Alcohol type: wine Patient Tobacco Use Status: Current everyday Tobacco user Tobacco use type: Cigarette Cigarettes Per Day: 3 Years Smoked: (onset 19yo, 1ppd x 47yrs, 40+PYH) e-Cigarette/Vaping Use: Never Used Second Hand Smoke Exposure: Yes service: No Current occupational status: retired Current occupation: [employer] Gender identity: Female Cognitive needs: No Hearing needs: No Vision needs: No Physical Exam Vital Signs: Last Vital Signs Pulse 64 01/27/24 16:16 BP 132/82 01/27/24 16:16 Pulse Ox 97 01/27/24 16:16 Oxygen Delivery Method Room Air 01/27/24 16:16 BMI result Body Mass Index 26.6 Comfortable Neck supple no JVD. Lungs entry equal no rales. Heart S1-S2 heard no gallop or rub. Abdomen soft nontender. Neuro alert awake oriented. No asterixis. Extremities no edema. Results Reviewed Nephrology Results: Hgb 14.3 g/dl (12.0-16.0) 12/11/23 WBC 8.9 X10*3/uL (4.8-10.8) 12/11/23 Plt Count 176 X10*3/uL (160-400) 12/11/23 Sodium 140 mmol/L (135-145) 01/16/24 Potassium 3.5 mmol/L (3.3-5.1) 01/16/24 Chloride 99 mmol/L (96-108) 01/16/24 Carbon Dioxide 31 mmol/L (22-29) H 01/16/24 BUN 25 mg/dL (9-16) H 01/16/24 Creatinine 1.00 mg/dL (0.5-1.4) 01/16/24 Calcium 9.7 mg/dL (8.4-10.2) 01/16/24 Urine Protein 30 (1+) mg/dL (Neg-Trace) H 01/16/24 Urine Creatinine 39.67 mg/dL 01/16/24 Assessment & Plan Assessment & Plan (1) Proteinuria: Code(s): R80.9 - Proteinuria, unspecified Category: Medical (2) AAA (abdominal aortic aneurysm): Comment: (infrarenal AAA 3.7mm on 07/2021 -per [facility] Vacular Dr. Wood) Code(s): I71.4 - Abdominal aortic aneurysm, without rupture Category: Medical (3) HTN (hypertension): Code(s): I10 - Essential (primary) hypertension Category: Medical Plan 68-year-old woman with a dipstick positive proteinuria and essentially normal renal function. She has a history of hypertension. Urine protein creatinine ratio was 0.5 today. No monoclonal proteins. UA was bland without any RBCs or casts. Proteinuria is most likely due to underlying hypertensive kidney disease. Overall renal function stable Goal is to slow the progression of renal disease Maintain blood pressure less than 130/80 continue with MAGDALENE inhibitor for renal protection. Encouraged her to stay on low-sodium diet Orders: Orders UA and rflx microscopic 3 Months I10 - Essential (primary) hypertension, R80.9 - Proteinuria, unspecified Total Protein Urine Random 3 Months I10 - Essential (primary) hypertension, R80.9 - Proteinuria, unspecified Basic Metabolic Panel 3 Months I10 - Essential (primary) hypertension, R80.9 - Proteinuria, unspecified Creatinine Urine 3 Months I10 - Essential (primary) hypertension, R80.9 - Proteinuria, unspecified Coding Level of Care Code Est Pt Level 4 (86100) Diagnoses Proteinuria R80.9 AAA (abdominal aortic aneurysm) I71.4 HTN (hypertension) I10
[2024-01-27 16:16] VITALS: BP 132/82; PULSE 64; O2SAT 97; BMI 26.6
== END 2024-01-27 16:28 | disposition home or self-care (01) ==
PROVIDERS: PCP Nurse Practitioner Family; Visit Provider Internal Medicine Hypertension Specialist
DX: I71.43 Infrarenal abdominal aortic aneurysm, without rupture (principal); I10 Essential (primary) hypertension; R80.9 Proteinuria, unspecified
CPT/HCPCS: 99214

== ENCOUNTER → 2024-01-27 16:15 | Outpatient (BNVA) | payer MEDICARE, MEDICAID, SELFPAY | PROVIDERS: PCP Nurse Practitioner Family; Visit Provider Internal Medicine Hypertension Specialist | DX: R80.9 Proteinuria, unspecified (principal); I10 Essential (primary) hypertension; I71.40 Abdominal aortic aneurysm, without rupture, unspecified | CPT/HCPCS: 99212 ==

== ENCOUNTER 2024-04-28 11:11 | Outpatient (REF) | payer MEDICARE, MEDICAID, SELFPAY ==
--- OUTSIDE RECORDS SUMMARY | 2024-04-28 14:09 | XMS_ITS | Clinical Summary ---
[facility] Address [address] [place] [address] Care Team Providers Care Car Builder Name Role Phone Unavailable Primary Care Provider [...]
[2024-04-28 16:04] LABS: Urine Cytology See Pathology rpt
== END 2024-04-28 11:12 | disposition home or self-care (01) ==
LOC: HO.LNP 11:11
PROVIDERS: PCP Nurse Practitioner Family; Visit Provider Nurse Practitioner Family
DX: R31.29 Other microscopic hematuria (principal); F17.210 Nicotine dependence, cigarettes, uncomplicated; Z13.9 Encounter for screening, unspecified
CPT/HCPCS: 81003; 88112; 99202

== ENCOUNTER 2024-04-28 11:11 | Outpatient (AMB) | payer MEDICARE, MEDICAID, SELFPAY ==
--- NOTE | 2024-04-28 11:23 | A.OFFVIS_ITS ---
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 Required: No Accompanied by: Self / Same As Patient Allergies Wellbutrin Adverse Reaction (Unknown, Uncoded 04/28/24 11:54) worsening mood, dizziness Medication List - Last Reconciled 04/28/24 by PROSPER Trevizo- amlodipine 2.5 mg PO DAILY 90 days aspirin (Adult Low Dose Aspirin) 81 mg PO DAILY 90 days ezetimibe 10 mg PO DAILY 90 days Gait belt daily use for lumbar support ibuprofen 600 mg PO Q8H PRN lisinopril-hydrochlorothiazide 20-25 mg 1 tab PO DAILY metoprolol succinate ER 25 mg PO DAILY 90 days multivitamin (Daily Multi-Vitamin tablet) 1 tab PO DAILY 90 days nicotine (polacrilex) 4 mg buccal Q6H PRN omega-3 acid ethyl esters 1 cap PO BID PRN rosuvastatin 40 mg PO DAILY 90 days [SI joint Belt As directed] HPI Comments Details: Serenity is a very pleasant 69-year-old female patient of Dr. Truong. She has a past medical history of hyperthyroidism, nicotine dependence, abdominal aortic aneurysm, migraines, dyslipidemia, back pain, left thyroid nodule, and liver lesion. She presents to the office today as with the patient for microscopic hematuria in the setting of longstanding nicotine dependence. In discussion with the patient today she reports a longstanding history of nicotine dependence for over 50 years. She reports smoking approximately half a pack of cigarettes per day for many years however recently has been attempting to quit and has been smoking 3-4 cigarettes daily. In office urinalysis results reviewed with the patient today trace microscopic hematuria. We discussed at length potential causes of microscopic hematuria as well as further workup in risks and benefits of these interventions. She otherwise denies any bothersome urinary issues. She denies urinary urgency, urinary frequency, incontinence, nocturia, gross/visible hematuria, dysuria, foul smelling urine, changes to urinary stream, flank pain, fever, and or chills. I discussed reasons for blood in the urine may include but are not kay ited to kidney stones, cancer in the urinary tract, kidney stone disease or inflammatory conditions of the urinary tract. I have discussed workup to include cystoscopy evaluation. She is happy with her current voiding parameters. She otherwise offers no other issues or concerns at this time. [facility] Medical History Nicotine dependence, cigarettes, uncomplicated Hyperthyroidism Left thyroid nodule Liver lesion, right lobe Tubular adenoma of colon (~2013) History of COVID-19 Elevated liver enzymes Postmenopausal Parotiditis Elevated systolic blood pressure reading with diagnosis of hypertension AAA (abdominal aortic aneurysm) Migraines Elevated fasting glucose Dyslipidemia Back pain Surgical History History of colonoscopy Family History Mother Thyroid cancer Daughter No problems noted. Father Stroke Social History Housing: House Alcohol intake: current Alcohol intake frequency: a few times a month Alcohol type: wine Patient Tobacco Use Status: Current everyday Tobacco user Tobacco use type: Cigarette Cigarettes Per Day: 3 Years Smoked: (onset 19yo, 1ppd x 47yrs, 40+PYH) e-Cigarette/Vaping Use: Never Used Second Hand Smoke Exposure: Yes service: No Current occupational status: retired Current occupation: [employer] Gender identity: Female Cognitive needs: No Hearing needs: No Vision needs: No Review of Systems Const All systems reviewed & are unremarkable except as noted in HPI and below Physical Exam Const General: cooperative, healthy appearing, comfortable, no acute distress, well developed, alert and awake Orientation/consciousness: patient oriented x3 Limitations: no limitations HEENT Head: Yes normal to inspection, Yes normocephalic and Yes atraumatic Ears: hearing grossly normal bilaterally Eyes General: appearance normal, both eyes and all related structures Neck Neck: Yes normal visual inspection and Yes trachea midline Chest Chest palpation & inspection: normal inspection of the chest Resp Effort & Inspection: normal respiratory effort and able to speak in complete sentences Cardio Rate: regular rate GI Inspection: Yes normal to inspection General: Yes no CVA tenderness Back/Spine/Pelvis Back: no CVA tenderness Skin General skin exam: no rashes or lesions noted Neuro General: patient oriented x3 Extrem General: Yes normal to inspection Psych Appearance: grossly normal and well kempt Mental Status: mental status grossly normal Speech and movement: Normal speech and movement present and Clear speech present Affect: normal affect Attitude: cooperative Thought process: Normal thought process present Thought content: Normal thought content present Insight: Fair insight present (Psych) Judgement: Fair judgement present (Psych) Results AMB Urinalysis, Automated UA Leukoctes 15 Alessandra/uL Last Edit by [email or web address] on 04/28/24 11:42 UA Nitrite Negative Last Edit by [email or web address] on 04/28/24 11:42 UA Urobilinogen 0.2 mg/dL Last Edit by [email or web address] on 04/28/24 11:42 UA Protein 30 mg/dL Last Edit by [email or web address] on 04/28/24 11:42 UA pH 6.0 Last Edit by [email or web address] on 04/28/24 11:42 UA Blood 10 Zhen/uL Last Edit by [email or web address] on 04/28/24 11:42 UA Specific Seneca 1.010 Last Edit by [email or web address] on 04/28/24 11:42 UA Ketone Last Edit by [email or web address] on 04/28/24 11:42 UA Bilirubin 0 mg/dL Last Edit by [email or web address] on 04/28/24 11:42 UA Glucose 0 mg/dL Last Edit by [email or web address] on 04/28/24 11:42 Results Reviewed Results Reviewed: Laboratory Last Values Urine pH (Auto) 6.0 04/28/24 11:31 Specific Seneca (Auto) 1.010 04/28/24 11:31 Urine Protein (Auto) 30 mg/dL 04/28/24 11:31 Glucose (UA)(Auto) 0 mg/dL 04/28/24 11:31 Urine Blood (Auto) 10 Zhen/uL 04/28/24 11:31 Urine Nitrite (Auto) Negative 04/28/24 11:31 Urine Bilirubin (Auto) 0 mg/dL 04/28/24 11:31 Urine Urobilinogen (Auto) 0.2 mg/dL 04/28/24 11:31 Leukocyte Esterase (Auto) 15 Alessandra/uL 04/28/24 11:31 Assessment & Plan Assessment & Plan (1) Microscopic hematuria: Code(s): R31.29 - Other microscopic hematuria Category: Medical (2) Nicotine dependence, cigarettes, uncomplicated: Comment: (current smoker, onset 19yo, 1ppd x 47yrs, 40+PYH) Code(s): F17.210 - Nicotine dependence, cigarettes, uncomplicated Category: Medical Plan In office urinalysis results with the patient today; will send for urine cytology. We discussed potential causes of microscopic hematuria as well as further workup in risks and benefits of this intervention. Will obtain CT urogram for further assessment evaluation Will obtain BUN and creatinine for imaging. We discussed at length the importance of limiting/quitting nicotine dependence for overall health and well-being. She reports be happy with current voiding parameters. She denies any bothersome urinary issues or concerns. Follow-up in office cystoscopy in 1-2 months with imaging and labs to be completed prior; or sooner with any issues, concerns, and or questions. Orders: Orders CT urogram Today F17.210 - Nicotine dependence, cigarettes, uncomplicated, R31.29 - Other microscopic hematuria Blood Urea Nitrogen Today R31.29 - Other microscopic hematuria AMB Urinalysis Automated Today Z13.9 - Encounter for screening, unspecified Urine Cytology Today R31.29 - Other microscopic hematuria Creatinine Today R31.29 - Other microscopic hematuria Patient Instructions: The patient had an opportunity to ask questions regarding the treatment plan. All questions were answered. Physical exam, labs, and imaging were discussed and reviewed in detail. As well as risks, benefits, and discussion of treatment choices. No major barriers to understanding were identified. The patient expressed understanding and agreement with the above treatment plan. The patient was made aware they should contact our office by phone for worsening of their current condition, the appearance of new symptoms, or with any questions or concerns. Compliance is encouraged with any medications and follow up testing that is ordered. It is a privilege to be allowed the opportunity to participate in? your urological care.? Again, if you have any questions or concerns If you have any questions or concerns please do not hesitate to contact me. The office is [phone]. This note is constructed using voice recognition software. While every effort has been made to ensure accuracy driver merchandiser errors may have been included. Yours sincerely, Joanne Ruiz, ASSURANCE MANAGER INSURANCE-BC Coding Level of Care Code New Pt Level 3 (50771) Diagnoses Microscopic hematuria R31.29 Nicotine dependence, cigarettes, uncomplicated F17.210
--- OUTSIDE RECORDS SUMMARY | 2024-04-28 13:40 | XMS_ITS | Clinical Summary ---
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 Name Role Phone Unavailable Primary Care Provider Unavailabl e Surgical History Surgery Date Site/Laterality Comments COLONOSCOPY 08/13/2013 PROCEDURE: HISTORICAL COLONOSCOPY; COMMENT: colon polyps, no indication as to when to f/u' Dr Wood Medical History Medical History Date Comments HTN (hypertension) DX:HTN (hyper tension) Hyperlipidemia DX:Hyperlipidemi a Anxiety DX:Anxiety Osteoarthritis 08/29/2016 DX:Osteoarthriti s Colon polyps 11/15/2016 DX:Colon polyps; COMMENT: 2013, No indication as when to f/u, Dr Wood Allergic rhinitis 11/15/2016 DX:Allergic rh initis Insomnia 11/15/2016 DX:Insomnia Liver cyst 11/15/2016 DX:Liver cyst; C OMMENT: 2014, Dr Wood AAA (abdominal aortic aneury sm) (CMS/HCC) 11/15/2016 DX:AAA (abdominal aortic ane urysm) (HCC); COMMENT: 3.1 cm, ref to Vasc Surgeon 2015 History of radiation exposure DX :History of radiation exposure Family History Medical History Relation Name Comments Liver disease Brother etoh Stroke Father HTN, Hyperlipid emia, Other: thyroid cancer Mother DVT, b one cancer Relation Name Status Comments Brother Father Mother Social History Tobacco Use Types Packs/Day Years Used Date Smoking Tobacco: Every Day Smokeless Tobacco: Former Alcohol Use Standard Drinks/Week Comments Yes 0 (1 standard drink = 0.6 oz pur e alcohol) Comments Unknown Sex and Gender Information Value Date Recorded Sex Assigned at Not on file Legal Sex Female 5:24 AM EST Gender Identity Not on file Sexual Orientation Not on file Obstetrics History Plan of Treatment Health Maintenance Due Date Last Done Comments Breast Cancer Screening 1955 Hepatitis A Vaccines (1 of 2 - Risk 2-dose series) 02/11/1976 Pneumococcal Vaccine: 50+ Ye ars (1 of 2 - PCV) 02/11/1976 Zoster Vaccines (1 of 2) 2007 Hepatitis B Vaccines (1 of 3 - Risk 3-dose series) 2017 RSV Immunization Patients 60 + Years Old (1 - Risk 60-74 years 1-dose series) 2017 DTaP,Tdap,and Td Vaccines (2 - Td or Tdap) 08/02/2021 08/03/2011 Cholesterol Screening (Lipid Panel) 02/04/2022 Colorectal Cancer Screening: Colonoscopy 02/04/2022 Depression Screening 02/04/2022 Hepatitis C Screening 02/04/2022 Osteoporosis Screening (Bone Density Screening) 02/04/2022 Social Influencers of Health Screening 02/04/2022 Falls Risk Assessment 2022 Hypertension/CHF/CAD Annual BMP Blood Test 02/17/2022 COVID-19 Vaccine ( - 2023-2 5 season) 2023 Influenza Vaccine (#1) 2023 01/12/2019 HIB Vaccines Aged Out No longer eligi ble based on patient's age to complete this topic HPV Vaccines Aged Out No longer eligi ble based on patient's age to complete this topic IPV Vaccines Aged Out No longer eligi ble based on patient's age to complete this topic MMR Vaccines Aged Out No longer eligi ble based on patient's age to complete this topic Meningococcal ACWY Vaccine Aged Out N o longer eligible based on patient's age to complete this topic Meningococcal B Vacine Aged Out No lo nger eligible based on patient's age to complete this topic RSV Immunization Patients Un felipe 20 months Aged Out No longer eligible b ased on patient's age to complete this topic Varicella Vaccines Aged Out No longer eligible based on patient's age to complete this topic
== END 2024-04-28 11:55 | disposition home or self-care (01) ==
PROVIDERS: PCP Nurse Practitioner Family; Visit Provider Nurse Practitioner Family
DX: R31.29 Other microscopic hematuria (principal); F17.210 Nicotine dependence, cigarettes, uncomplicated; Z13.9 Encounter for screening, unspecified
CPT/HCPCS: 99203

== ENCOUNTER → 2024-04-30 14:39 | Outpatient (BNVA) | payer MEDICARE, MEDICAID, SELFPAY | PROVIDERS: PCP Nurse Practitioner Family; Visit Provider Internal Medicine Hypertension Specialist ==

== ENCOUNTER 2024-05-05 11:34 | Outpatient (REF) | payer MEDICARE, MEDICAID, SELFPAY ==
[2024-05-05 13:37] LABS: Anion Gap 11 (12-20); Appearance Urine Clear; Blood Urea Nitrogen 15 mg/dL (9-16); Blood Urea Nitrogen 17 mg/dL (9-16); Calcium 9.6 mg/dL (8.4-10.2); Carbon Dioxide 31 mmol/L (22-29); Chloride 103 mmol/L (96-108); Color Urine Yellow; Estimated Glomerular Filt Rate > 60; Glucose Random 125 mg/dL (60-115); Glucose Urine UA Negative (Negative); Leukocyte Esterase Urine Negative (Negative); Nitrite Urine Negative (Negative); PH 6.5 (5.0-9.0); Potassium 3.9 mmol/L (3.3-5.1); Sodium 141 mmol/L (135-145); UMIC TRIGGER UA YES; Urine Blood Negative (Negative); Urine Ketones Negative (Negative); Urine Protein 30 (1+) mg/dL (Neg-Trace)
[2024-05-05 13:41] LABS: Bacteria Urine None Seen (None Seen); Hyaline Casts Urine 0-2 /LPF (0-2); RBC Urine 0-2 /HPF (0-2); Squamous Epithelial Cell Urine 0-2 /HPF (0-2); WBC Urine 0-5 /HPF (0-5)
[2024-05-05 13:53] LABS: Creatinine Urine 44.85 mg/dL; Total Protein Urine Random 30 mg/dL (<12)
--- OUTSIDE RECORDS SUMMARY | 2024-05-05 14:43 | XMS_ITS | Clinical Summary ---
[facility] Address [address] [place] [address] Care Team Providers Care Dry Wall Sprayer Name Role Phone Unavailable Primary Care Provider [...]
== END 2024-05-05 11:35 | disposition home or self-care (01) ==
LOC: HO.HMGCLDS 11:34
PROVIDERS: PCP Nurse Practitioner Family; Referring Provider Internal Medicine Hypertension Specialist; Visit Provider Nurse Practitioner Family
DX: I10 Essential (primary) hypertension (principal); R31.29 Other microscopic hematuria; R80.9 Proteinuria, unspecified
CPT/HCPCS: 36415; 80048; 81001; 82570; 84156; 84520

== ENCOUNTER 2024-05-07 14:54 | Outpatient (AMB) | payer MEDICARE, MEDICAID, SELFPAY ==
[2024-05-07 14:58] VITALS: BP 98/60; PULSE 76; O2SAT 93; BMI 27.1
--- NOTE | 2024-05-07 14:58 | HO.NEPHOV ---
Vital Signs 05/07/24 14:58 Height 5 ft 7 in Weight 173 lb BMI 27.1 BP 98/60 Blood Pressure Location Lt brachial Position Sitting Pulse 76 Pulse Source Pulse Oximeter Pulse Oximetry (%) 93 Oxygen Delivery Method Room Air Intake Visit Reasons: FU after labs/ Conf Instrument Lens Inspector Required: No Accompanied by: Self / Same As Patient Allergies Wellbutrin Adverse Reaction (Unknown, Uncoded 04/28/24 11:54) worsening mood, dizziness Medication List - Last Reconciled 05/07/24 by Erwin Agosto MD amlodipine 2.5 mg PO DAILY 90 days aspirin (Adult Low Dose Aspirin) 81 mg PO DAILY 90 days ezetimibe 10 mg PO DAILY 90 days Gait belt daily use for lumbar support ibuprofen 600 mg PO Q8H PRN lisinopril-hydrochlorothiazide 20-25 mg 1 tab PO DAILY metoprolol succinate ER 25 mg PO DAILY 90 days multivitamin (Daily Multi-Vitamin tablet) 1 tab PO DAILY 90 days nicotine (polacrilex) 4 mg buccal Q6H PRN omega-3 acid ethyl esters 1 cap PO BID PRN rosuvastatin 40 mg PO DAILY 90 days [SI joint Belt As directed] HPI Comments Details: Serenity is a pleasant 68-year-old woman with a history of hypertension. she was found to have proteinuria by urine dipstick and hence this referral. She has a history of chronic smoking. She has infrarenal abdominal aortic aneurysm measuring between 3.7-4 cm and currently being actively followed by Dr. Wood. He has no history of diabetes mellitus No history of any kidney issues in the past. No family history of kidney issues as well. 01/27/2024;Overall doing well. No new issues. 05/07/24: No urinary symptoms. Meds are the same. No edema PFSH Medical History Nicotine dependence, cigarettes, uncomplicated Hyperthyroidism Left thyroid nodule Liver lesion, right lobe Tubular adenoma of colon (~2013) History of COVID-19 Elevated liver enzymes Postmenopausal Parotiditis Elevated systolic blood pressure reading with diagnosis of hypertension AAA (abdominal aortic aneurysm) Migraines Elevated fasting glucose Dyslipidemia Back pain Surgical History History of colonoscopy Family History Mother Thyroid cancer Daughter No problems noted. Father Stroke Social History Housing: House Alcohol intake: current Alcohol intake frequency: a few times a month Alcohol type: wine Patient Tobacco Use Status: Current everyday Tobacco user Tobacco use type: Cigarette Cigarettes Per Day: 3 Years Smoked: (onset 19yo, 1ppd x 47yrs, 40+PYH) e-Cigarette/Vaping Use: Never Used Second Hand Smoke Exposure: Yes service: No Current occupational status: retired Current occupation: [employer] Gender identity: Female Cognitive needs: No Hearing needs: No Vision needs: No Physical Exam Vital Signs: Last Vital Signs Pulse 76 05/07/24 14:58 BP 98/60 05/07/24 14:58 Pulse Ox 93 05/07/24 14:58 Oxygen Delivery Method Room Air 05/07/24 14:58 BMI result Body Mass Index 27.1 Comfortable Neck supple no JVD. Lungs entry equal no rales. Heart S1-S2 heard no gallop or rub. Abdomen soft nontender. Neuro alert awake oriented. No asterixis. Extremities no edema. Results Reviewed Nephrology Results: Sodium 141 mmol/L (135-145) 05/05/24 Potassium 3.9 mmol/L (3.3-5.1) 05/05/24 Chloride 103 mmol/L (96-108) 05/05/24 Carbon Dioxide 31 mmol/L (22-29) H 05/05/24 BUN 15 mg/dL (9-16) 05/05/24 Creatinine 0.88 mg/dL (0.5-1.4) 05/05/24 Calcium 9.6 mg/dL (8.4-10.2) 05/05/24 Urine Protein 30 (1+) mg/dL (Neg-Trace) H 05/05/24 Urine Creatinine 44.85 mg/dL 05/05/24 Assessment & Plan Assessment & Plan (1) Proteinuria: Code(s): R80.9 - Proteinuria, unspecified Category: Medical (2) AAA (abdominal aortic aneurysm): Comment: (infrarenal AAA 3.7mm on 07/2021 -per [facility] Dr. Wood) Code(s): I71.4 - Abdominal aortic aneurysm, without rupture Category: Medical (3) HTN (hypertension): Code(s): I10 - Essential (primary) hypertension Category: Medical Plan 68-year-old woman with a dipstick positive proteinuria and essentially normal renal function. She has a history of hypertension. Urine protein creatinine ratio was 0.6 today. No monoclonal proteins. UA was bland without any RBCs or casts. Proteinuria is most likely due to underlying hypertensive kidney disease. Overall renal function stable Goal is to slow the progression of renal disease Maintain blood pressure less than 130/80 continue with MAGDALENE inhibitor for renal protection. Encouraged her to stay on low-sodium diet Elevated tCO2 - most likely due to resp acidosis Probably has COPD May need pulm evaluation Discussed smoking cessation. Orders: Orders Potassium Urine Random 6 Months I10 - Essential (primary) hypertension, R80.9 - Proteinuria, unspecified Total Protein Urine Random 6 Months I10 - Essential (primary) hypertension, R80.9 - Proteinuria, unspecified UA and rflx microscopic 6 Months I10 - Essential (primary) hypertension, R80.9 - Proteinuria, unspecified Creatinine Urine 6 Months I10 - Essential (primary) hypertension, R80.9 - Proteinuria, unspecified Basic Metabolic Panel 6 Months I10 - Essential (primary) hypertension, R80.9 - Proteinuria, unspecified Coding Level of Care Code Est Pt Level 4 (45621) Diagnoses Proteinuria R80.9 AAA (abdominal aortic aneurysm) I71.4 HTN (hypertension) I10
--- OUTSIDE RECORDS SUMMARY | 2024-05-07 18:24 | XMS_ITS | Clinical Summary ---
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
== END 2024-05-07 15:10 | disposition home or self-care (01) ==
PROVIDERS: PCP Nurse Practitioner Family; Visit Provider Internal Medicine Hypertension Specialist
DX: R80.9 Proteinuria, unspecified (principal); I71.40 Abdominal aortic aneurysm, without rupture, unspecified; I10 Essential (primary) hypertension
CPT/HCPCS: 99214

== ENCOUNTER → 2024-05-07 14:54 | Outpatient (BNVA) | payer MEDICARE, MEDICAID, SELFPAY | PROVIDERS: PCP Nurse Practitioner Family; Visit Provider Internal Medicine Hypertension Specialist | DX: I10 Essential (primary) hypertension (principal); I71.40 Abdominal aortic aneurysm, without rupture, unspecified; R80.9 Proteinuria, unspecified; F17.210 Nicotine dependence, cigarettes, uncomplicated | CPT/HCPCS: 99212 ==

== ENCOUNTER 2024-05-14 08:59 | Outpatient (AMB) | payer OTHER, MEDICAID, SELFPAY ==
--- NOTE | 2024-05-14 09:02 | A.OFFVIS_ITS ---
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 Technician Required: No Accompanied by: Self / Same As Patient Allergies Wellbutrin Adverse Reaction (Unknown, Uncoded 05/14/24 09:03) worsening mood, dizziness Medication List - Last Reconciled 05/14/24 by Kerrie Tuttle MD amlodipine 2.5 mg PO DAILY 90 days aspirin (Adult Low Dose Aspirin) 81 mg PO DAILY 90 days ezetimibe 10 mg PO DAILY 90 days Gait belt daily use for lumbar support ibuprofen 600 mg PO Q8H PRN lisinopril-hydrochlorothiazide 20-25 mg 1 tab PO DAILY metoprolol succinate ER 25 mg PO DAILY 90 days nicotine (polacrilex) 4 mg buccal Q6H PRN omega-3 acid ethyl esters 1 cap PO BID PRN rosuvastatin 40 mg PO DAILY 90 days [SI joint Belt As directed] HPI Comments Details: 69-year-old female seen today for follow up of nontoxic multinodular goiter. HPI 2021: Initially diagnosed with thyroid nodule when CT of the chest was done. This showed a left lower pole nodule. 03/01/2022: Ultrasound of the neck subsequently redemonstrated this. 1.6 X 1.5 X 2 cm. Heterogenous nodule? 07/12/2022:FNA biopsy of her left lower pole 2.0 cm thyroid nodule with cytology revealing atypia of undetermined significance (bethesda category III). Affirma was benign. After discussion with the patient regarding possible lobectomy due to increased risk of thyroid cancer because of her exposure to [place] possibly and family history of thyroid cancer versus ultrasound surveillance, it was decided to monitor with ultrasound surveillance. TSH was low while using biotin. Stopped biotin and TSH normalized. Denies any history of head or neck irradiation, however she was present in [place] during the [place] fallout. She did not receive iodine prophylaxis. She is unsure if she was in the plume. She does have a family history of thyroid cancer in her Mother. Interval history Currently denies any compressive symptoms. She does have a sore throat currently , getting better but had swollen lymph nodes got evaluated at urgent care 2 days ago and is on prednisone 5 day course Denies any symptoms of hyper or hypothyroidism. no recent ultrasound of the thyroid done. Last TSH normal from December 2023. Laboratory Tests 02/21/23 12/11/23 09:08 08:00 TSH 0.45 0.62 Thyroid US: 03/01/2022 FINDINGS: Ultrasound imaging of the concerned area of the right neck which includes level 3 and level 5 segments there are small shotty lymph nodes measuring 1 cm maximum in long axis in the right neck. No abnormal lymph nodes seen in left neck. Incidentally noted is a left thyroid heterogeneous nodule measuring 1.6 x 1.5 x 2.0 cm. US/US soft tiss head and/or neck IMPRESSION: No abnormal size neck lymph nodes seen. Incidentally noted is a left thyroid heterogeneous nodule measuring 1.6 cm. Recommend ultrasound thyroid for follow-up. [facility] Medical History Nicotine dependence, cigarettes, uncomplicated Hyperthyroidism Left thyroid nodule Liver lesion, right lobe Tubular adenoma of colon (~2013) History of COVID-19 Elevated liver enzymes Postmenopausal Parotiditis Elevated systolic blood pressure reading with diagnosis of hypertension AAA (abdominal aortic aneurysm) Migraines Elevated fasting glucose Dyslipidemia Back pain Surgical History History of colonoscopy Family History Mother Thyroid cancer Daughter No problems noted. Father Stroke Social History Housing: House Alcohol intake: current Alcohol intake frequency: a few times a month Alcohol type: wine Patient Tobacco Use Status: Current everyday Tobacco user Tobacco use type: Cigarette Cigarettes Per Day: 3 Years Smoked: (onset 19yo, 1ppd x 47yrs, 40+PYH) e-Cigarette/Vaping Use: Never Used Second Hand Smoke Exposure: Yes service: No Current occupational status: retired Current occupation: [employer] Gender identity: Female Cognitive needs: No Hearing needs: No Vision needs: No Physical Exam Vital Signs: Last Vital Signs Pulse 60 05/14/24 09:03 BP 112/68 05/14/24 09:03 Pulse Ox 98 05/14/24 09:03 Oxygen Delivery Method Room Air 05/14/24 09:03 BMI result Body Mass Index 27.3 Assessment & Plan Assessment & Plan (1) Thyroid nodule: Code(s): E04.1 - Nontoxic single thyroid nodule Category: Medical Plan: 69-year-old female with possible exposure to [place] incident who did not receive iodine prophylaxis with family history of thyroid cancer, who was diagnosed with a left-sided thyroid nodule back in 2021. Biopsy of this July 2022 was AUS [place] category 3 With nuclear atypia, Afirma came back benign. discussion was done with the patient regarding possible lobectomy due to increased risk of thyroid cancer because of her exposure to [place] possibly and family history of thyroid cancer versus ultrasound surveillance, it was decided to monitor with ultrasound surveillance. she has not had any recent ultrasound. I will order today. Last TSH from December 2023 was normal. She does not have any compressive symptoms. No symptoms of hypo or hyperthyroidism. Plan: - ordered ultrasound of the thyroid - ordered TSH with reflex free T4 to be done today - follow up in 8 weeks to discuss results Plan see above Orders: Orders 2 US thyroid Today E04.1 - Nontoxic single thyroid nodule TSH reflex Free T4 Today E04.1 - Nontoxic single thyroid nodule Patient Instructions: Do thyroid blood work today Do ultrasound of the thyroid, somebody is going to call you to schedule this Follow up in 8 weeks to discuss results Coding Level of Care Code Est Pt Level 3 (54205) Diagnoses Thyroid nodule E04.1
[2024-05-14 09:03] VITALS: BP 112/68; PULSE 60; O2SAT 98; BMI 27.3
== END 2024-05-14 09:20 | disposition home or self-care (01) ==
LOC: HO.ENCR 08:59
PROVIDERS: PCP Nurse Practitioner Family; Visit Provider Student in an Organized Health Care Education/Training Program
DX: E04.1 Nontoxic single thyroid nodule (principal)
CPT/HCPCS: 99213

== ENCOUNTER 2024-05-14 09:31 | Outpatient (REF) | payer OTHER, MEDICAID, SELFPAY ==
--- OUTSIDE RECORDS SUMMARY | 2024-05-14 11:15 | XMS_ITS | Clinical Summary ---
Author Organization [facility] Address [address] [place] [address] Care Team Providers Care Pony Cylinder Press Operator Name Role Phone Unavailable Primary Care Provider [...]
[2024-05-14 12:26] LABS: TSH reflex Free T4 0.53 uIU/mL (0.32-4.0)
== END 2024-05-14 09:32 | disposition home or self-care (01) ==
LOC: HO.10HDL 09:31
PROVIDERS: Visit Provider Student in an Organized Health Care Education/Training Program
DX: E04.1 Nontoxic single thyroid nodule (principal)
CPT/HCPCS: 36415; 84443

== ENCOUNTER 2024-06-30 09:18 | Outpatient (REF) | payer MEDICARE, SELFPAY ==
--- NOTE | ~2024-06-30 | CT_ITS ---
CLINICAL HISTORY: R31.29 - Other microscopic hematuria CT abdomen and pelvis with and without contrast Comparison: 04/03/23 Findings: No consolidation at the lung bases. Unremarkable gallbladder. No bladder stone. No hydronephrosis or nephrolithiasis. The kidneys enhance normally and excrete contrast symmetrically. Subcentimeter low attenuating lesion in the upper pole of the right kidney which is too small to characterize. Ill-defined enhancement of the dome of the liver, indeterminate. The other solid organs are unremarkable. No bowel wall thickening or dilation. A normal appendix is identified. Infrarenal abdominal aortic aneurysm measuring 4.2 cm, previously measuring 4.0 cm. Severe calcified atherosclerotic disease. No lymphadenopathy. No ascites. No acute osseous abnormality. Impression: No urinary tract stone or obstruction. Infrarenal abdominal aortic aneurysm measuring 4.2 cm. One year follow up is recommended. This document has been electronically signed by: Karen Jasso MD on 07/01/2024 22:08:10
[2024-06-30] MEDS: iohexoL 350 MG/ML 100 ML INFUS..BTL IV (10:04)
--- OUTSIDE RECORDS SUMMARY | 2024-06-30 10:08 | XMS_ITS | Clinical Summary ---
Author Organization [facility] Address [address] [place] [address] Care Team Providers Care Procedural Nurse Name Role Phone Unavailable Primary Care Provider [...] Dr Wood AAA (abdominal aortic aneury sm) (CMS/HCC V24) 11/15/2016 DX:AAA (abdominal aortic ane urysm) (HCC); [...] - Risk 3-dose series) 2017 RSV Immunization Adult Patie nts (1 - Risk 60-74 years 1-dose series) [...] - 2023-2 5 season) 2023 Influenza Vaccine (Season Ended) 2024 01/13/20 19 HIB Vaccines Aged Out No longer eligi [...] age to complete this topic Meningococcal B Vaccine Aged Out No l onger eligible based on patient's age to complete this topic RSV Immunization Patients Un felipe 20 months Aged Out No longer eligible b ased on patient's age to complete this topic Varicella Vaccines Aged Out No longer eligible based on patient's age to complete this topic
[2024-06-30 14:56] LABS: Creatinine POC 0.6 mg/dL (0.5-1.4); GFR POC > 60
== END 2024-06-30 09:19 | disposition home or self-care (01) ==
LOC: HO.CT 09:18
PROVIDERS: PCP Nurse Practitioner Family; Visit Provider Nurse Practitioner Family
DX: R31.29 Other microscopic hematuria (principal); F17.210 Nicotine dependence, cigarettes, uncomplicated
CPT/HCPCS: 74178; 82565; Q9967

== ENCOUNTER → 2024-06-30 09:21 | Outpatient (BNV) | payer MEDICARE, SELFPAY | PROVIDERS: PCP Nurse Practitioner Family; Visit Provider Radiology Diagnostic Radiology | DX: I71.43 Infrarenal abdominal aortic aneurysm, without rupture (principal); R31.29 Other microscopic hematuria | CPT/HCPCS: 74178 ==

== ENCOUNTER 2024-07-01 08:04 | Outpatient (AMB) | payer MEDICARE, SELFPAY ==
--- OUTSIDE RECORDS SUMMARY | 2024-07-01 08:07 | XMS_ITS | Clinical Summary ---
Author Organization [facility] Address [address] [place] [address] Care Team Providers Care Cigarette Machines Mechanic Name Role Phone Unavailable Primary Care Provider [...]
--- NOTE | 2024-07-01 08:38 | MHC.OFFWIV ---
Intake Vital Signs 07/01/24 08:39 Height 5 ft 7 in Weight 175 lb BMI 27.4 BP 140/80 H Blood Pressure Location Lt brachial Position Sitting Pulse 69 Pulse Source Pulse Oximeter Temp 98.2 F Temp Source Oral Pulse Oximetry (%) 97 Oxygen Delivery Method Room Air Intake Visit Reasons: EP neck pain Intake Note: Patient complains of neck pain on left side on going for 5 days. Patient Tobacco Use Status: Current everyday Tobacco user Reprographics Associate Required: No Field Service Analyst: Not Required per policy Accompanied by: Self / Same As Patient Allergies Wellbutrin Adverse Reaction (Unknown, Uncoded 07/01/24 08:39) worsening mood, dizziness Do you need a note to return to daycare/school/sports/work: No HPI HPI Comments History of Present Illness Details History of Present Illness - The patient is a 69-year-old female presenting with muscle spasms and tightness in the left sided neck and upper left back region. - The symptoms started on 5 days ago without any associated injury or trauma. She has had this issue in the past. - The discomfort is severe and involves tightness and a pulling sensation, affecting the neck and extending to the back, noted as swollen. - The patient has implemented various self-care treatments including exercise, use of ibuprofen, applying topical cream, and alternating heat and ice, without relief. - There are no accompanying fevers or rash, and no history of gastrointestinal bleeding has been reported. Physical Exam General: Cooperative, healthy appearing, comfortable, no acute distress and well developed Orientation: Patient oriented x3 Limitations: No limitations Head: Normal to inspection Ears: Hearing grossly normal bilaterally Nose: Normal External nose present Face and sinus: Normal facial exam Eyes: Appearance normal, both eyes and all related structures Neck: full ROM Respiratory: Normal respiratory effort and able to speak in complete sentences. Skin: No rashes or lesions noted Back/spine: no TTP cervical spine, ttp paraspinous muscles, spasms noted, ttp left trapezius with some edema Neuro: Patient oriented x3 Extremities: Normal to inspection [facility] Medical History Nicotine dependence, cigarettes, uncomplicated Hyperthyroidism Left thyroid nodule Liver lesion, right lobe Tubular adenoma of colon (~2013) History of COVID-19 Elevated liver enzymes Postmenopausal Parotiditis Elevated systolic blood pressure reading with diagnosis of hypertension AAA (abdominal aortic aneurysm) Migraines Elevated fasting glucose Dyslipidemia Back pain Surgical History History of colonoscopy Family History Mother Thyroid cancer Daughter No problems noted. Father Stroke Social History Housing: House Alcohol intake: current Alcohol intake frequency: a few times a month Alcohol type: wine Patient Tobacco Use Status: Current everyday Tobacco user Tobacco use type: Cigarette Cigarettes Per Day: 3 Years Smoked: (onset 19yo, 1ppd x 47yrs, 40+PYH) e-Cigarette/Vaping Use: Never Used Second Hand Smoke Exposure: Yes service: No Current occupational status: retired Current occupation: [employer] Gender identity: Female Cognitive needs: No Hearing needs: No Vision needs: No Review of Systems Const All systems reviewed & are unremarkable except as noted in HPI and below Physical Exam Vital Signs: Last Vital Signs Temp 98.2 F 07/01/24 08:39 Pulse 69 07/01/24 08:39 BP 140/80 H 07/01/24 08:39 Pulse Ox 97 07/01/24 08:39 Oxygen Delivery Method Room Air 07/01/24 08:39 BMI result Body Mass Index 27.4 Assessment & Plan Assessment & Plan (1) Cervical paraspinal muscle spasm: Code(s): M62.838 - Other muscle spasm Plan: I will prescribe cyclobenzaprine, a muscle relaxant, and meloxicam, a stronger NSAID alternative to ibuprofen, ensuring that they are not taken in conjunction with other NSAIDs. The patient is informed of the potential drowsiness with cyclobenzaprine and advised on precautions. We discussed the potential need for physical therapy if symptoms do not improve, and arrangements were made for physical therapy contact. Patient was informed and verbally consented to the use of an ambient scribe for clinic note documentation during this visit. Orders: Orders PT Evaluation and Treatment Today M62.838 - Other muscle spasm Medications: New cyclobenzaprine 5 mg PO Q8H PRN 20 tabs 0RF Muscle Spasm meloxicam 15 mg PO DAILY PRN 15 tabs 0RF pain Coding Level of Care Code Est Pt Level 3 (92620) Diagnoses Cervical paraspinal muscle spasm M62.838
[2024-07-01 08:39] VITALS: BP 140/80; PULSE 69; TEMP 36.8; O2SAT 97; BMI 27.4
== END 2024-07-01 09:42 | disposition home or self-care (01) ==
PROVIDERS: PCP Nurse Practitioner Family; Visit Provider Physician Assistant
DX: M62.838 Other muscle spasm (principal)

== ENCOUNTER → 2024-07-01 08:04 | Outpatient (BNVA) | payer MEDICARE, SELFPAY | PROVIDERS: PCP Nurse Practitioner Family; Visit Provider Physician Assistant | DX: M62.838 Other muscle spasm (principal) | CPT/HCPCS: 99212 ==

== ENCOUNTER 2024-07-16 16:24 | Outpatient (REF) | payer MEDICARE, MEDICAID, SELFPAY ==
--- NOTE | ~2024-07-16 | US_ITS ---
EXAMINATION: US THYROID HISTORY: E04.1 - Nontoxic single thyroid nodule TECHNIQUE: Real-time grayscale ultrasound imaging was performed and images were reviewed. COMPARISON: Correlation is made with a CT of the chest dated 09/06/2023. FINDINGS: SIZE: The right thyroid lobe measures 7.4 x 2.2 x 2.6 cm. The left thyroid lobe measures 6.1 x 1.9 x 2.6 cm. The isthmus measures 4 mm. FLOW: Flow to the gland is normal. ECHOGENICITY: The echotexture of the gland is homogeneous. NODULES: Multiple bilateral nodules are identified as described below: Nodule #: 1 Location: Right lower pole measuring 10 x 7 x 9 mm. Shape: Wider than tall (0 points) Margins: Smooth (0 points) Echotexture: Isoechoic (1 point) Composition: Solid (2 points) Calcifications: None (0 points) Total points: 3 TIRADS: TR3: Mildly suspicious. Nodule #: 2 Location: Isthmus, measuring 5 x 4 x 3 mm. Shape: Round (0 points) Margins: Smooth (0 points) Echotexture: Hyperechoic (1 point) Composition: Solid (2 points) Calcifications: None (0 points) Total points: 3 TIRADS: TR3: Mildly suspicious. Nodule #: 3 Location: Midportion of the left thyroid lobe measuring 1.9 x 1.3 x 1.4 cm. Shape: Wider than tall (0 points) Margins: Smooth (0 points) Echotexture: Indeterminate (1 point) Composition: Mostly solid (2 points) Calcifications: Punctate calcifications (3 points) Total points: 6 TIRADS: TR4: Moderately suspicious. US/US thyroid IMPRESSION: Moderately suspicious 1.9 x 1.3 x 1.4 cm nodule in the midportion of the left thyroid lobe. According to ACR TI-RADS guidelines below, ultrasound-guided fine-needle aspiration is recommended. ACR TI-RADS Guidelines TR1 (0 points): Benign, No follow-up or biopsy required TR2 (2 points): Not Suspicious, No biopsy or follow up indicated TR3 (3 points): Mildly Suspicious, FNA if >= 2.5 cm, Follow if >= 1.5 cm TR4 (4-6 points): Moderately Suspicious, FNA if >= 1.5 cm, Follow if >= 1.0 cm TR5 (>=7 points): Highly Suspicious, FNA if >= 1.0 cm, Follow if >= 0.5 cm Electronically signed by: Faraz Schneider MD 07/17/2024 09:20 AM EDT
--- OUTSIDE RECORDS SUMMARY | 2024-07-16 16:26 | XMS_ITS | Clinical Summary ---
Author Organization [facility] Address [address] [place] [address] Care Team Providers Care Preschool Teacher'S Assistant Name Role Phone Unavailable Primary Care Provider [...]
== END 2024-07-16 16:25 | disposition home or self-care (01) ==
LOC: HO.US 16:24
PROVIDERS: PCP Nurse Practitioner Family; Visit Provider Student in an Organized Health Care Education/Training Program
DX: E04.1 Nontoxic single thyroid nodule (principal)
CPT/HCPCS: 76536

== ENCOUNTER → 2024-07-16 16:27 | Outpatient (BNV) | payer MEDICARE, MEDICAID, SELFPAY | PROVIDERS: PCP Nurse Practitioner Family; Visit Provider Radiology Diagnostic Radiology | DX: E04.1 Nontoxic single thyroid nodule (principal) | CPT/HCPCS: 76536 ==

== ENCOUNTER 2024-07-30 14:29 | Outpatient (REF) | payer MEDICARE, MEDICAID, SELFPAY ==
[2024-07-30 17:04] LABS: Urine Cytology See Pathology rpt
== END 2024-07-30 14:30 | disposition home or self-care (01) ==
LOC: HO.LAB 14:29
PROVIDERS: PCP Nurse Practitioner Family; Visit Provider Urology
DX: N39.0 Urinary tract infection, site not specified (principal); Z13.9 Encounter for screening, unspecified
CPT/HCPCS: 81003; 88112

== ENCOUNTER 2024-07-30 14:29 | Outpatient (AMB) | payer MEDICARE, MEDICAID, SELFPAY ==
--- NOTE | 2024-07-30 14:31 | MHC.OFFVIS ---
Intake Visit Reasons: cysto/CT/labs Intake Note: Cysto/ CT/ Labs No Uro Meds Aspirin Pt declined to sign procedure consent - unsure if she would like to procees Allergies Wellbutrin Adverse Reaction (Unknown, Uncoded 07/30/24 14:40) worsening mood, dizziness HPI Comments Details: 07/30/24-- History of Present Illness The patient is a 69-year-old female presenting with hematuria evaluation and follow-up. She has a history of microscopic and gross hematuria. The hematuria was first noted in April, confirmed by microscopic examination. A CT scan conducted last month showed no abnormalities in the kidneys or bladder, though it did reveal an abdominal aortic aneurysm. The patient has a history of nicotine use, and although she denies seeing visible blood in the urine, the persistence of microscopic hematuria raises concerns for possible bladder abnormalities. She is under the care of a portable grinding machine operator, who has found her renal function to be normal, and she has an appointment scheduled next month. Despite no current symptoms, a cystoscopy was advised to rule out bladder cancer as small lesions might not be detected on a CT scan. Urinary Symptoms Review - Microscopic hematuria confirmed in April and persistent - No patient-observed gross hematuria - Proteinuria noted, portable grinding machine operator indicated no current concerns - No current urinary symptoms reported by the patient Results - CT Scan: No kidney or bladder abnormalities; abdominal aortic aneurysm with calcification noted - Urinalysis: Microscopic hematuria confirmed; proteinuria present Discussion Notes During our discussion, I reviewed the CT scan results with the patient, confirming that no abnormalities were found in the kidneys or bladder. However, an abdominal aortic aneurysm was identified. Given the history of nicotine use and persistent microscopic hematuria, I recommended a cystoscopy to rule out bladder cancer, explaining that small lesions might not be visible on a CT scan. I discussed the importance of early detection and intervention, emphasizing that even without symptoms, it is crucial to rule out any underlying issues. The patient expressed reluctance towards the procedure but understood the rationale. I advised her to follow up in a year to reassess the situation and to contact us if any new symptoms, such as visible blood in the urine, occur. Plan The main focus is on the persistent microscopic hematuria, with a history of gross hematuria and a noted history of nicotine use, which increases the risk of bladder cancer. A cystoscopy is recommended to examine the bladder for any lesions not visible on the CT scan. The CT scan has ruled out kidney issues but revealed an abdominal aortic aneurysm, which requires monitoring by her vascular specialist. The patient should continue regular nephrology follow-ups for proteinuria, although renal function appears stable. A follow-up is planned in one year to reassess the urinary findings, and the patient should contact us if new symptoms arise. Patient Instructions - Schedule and attend a cystoscopy to further evaluate the bladder. - Continue seeing your portable grinding machine operator, especially regarding the proteinuria. - Follow up with your vascular specialist about the abdominal aortic aneurysm. - Contact us immediately if you notice visible blood in your urine or any new urinary symptoms. - Plan to follow up in one year for a urine recheck. Patient was informed and verbally consented to the use of an ambient scribe for clinic note documentation during this visit. 04/28/24--Serenity is a very pleasant 69-year-old female patient of Dr. Truong. She has a past medical history of hyperthyroidism, nicotine dependence, abdominal aortic aneurysm, migraines, dyslipidemia, back pain, left thyroid nodule, and liver lesion. She presents to the office today as with the patient for microscopic hematuria in the setting of longstanding nicotine dependence. In discussion with the patient today she reports a longstanding history of nicotine dependence for over 50 years. She reports smoking approximately half a pack of cigarettes per day for many years however recently has been attempting to quit and has been smoking 3-4 cigarettes daily. In office urinalysis results reviewed with the patient today trace microscopic hematuria. We discussed at length potential causes of microscopic hematuria as well as further workup in risks and benefits of these interventions. She otherwise denies any bothersome urinary issues. She denies urinary urgency, urinary frequency, incontinence, nocturia, gross/visible hematuria, dysuria, foul smelling urine, changes to urinary stream, flank pain, fever, and or chills. I discussed reasons for blood in the urine may include but are not limited to kidney stones, cancer in the urinary tract, kidney stone disease or inflammatory conditions of the urinary tract. I have discussed workup to include cystoscopy evaluation. She is happy with her current voiding parameters. She otherwise offers no other issues or concerns at this time. [facility] Medical History (Updated 07/14/24 @ 11:02 by Cheryl Allison PA-C) Nicotine dependence, cigarettes, uncomplicated Hyperthyroidism Left thyroid nodule Liver lesion, right lobe Tubular adenoma of colon (~2013) History of COVID-19 Elevated liver enzymes Postmenopausal Parotiditis Elevated systolic blood pressure reading with diagnosis of hypertension AAA (abdominal aortic aneurysm) Migraines Elevated fasting glucose Dyslipidemia Back pain Surgical History (Updated 07/14/24 @ 11:02 by Cheryl Allison PA-C) History of colonoscopy Family History Mother Thyroid cancer Daughter No problems noted. Father Stroke Social History Housing: House Alcohol intake: current Alcohol intake frequency: a few times a month Alcohol type: wine Patient Tobacco Use Status: Current everyday Tobacco user Tobacco use type: Cigarette Cigarettes Per Day: 3 Years Smoked: (onset 19yo, 1ppd x 47yrs, 40+PYH) e-Cigarette/Vaping Use: Never Used Second Hand Smoke Exposure: Yes service: No Current occupational status: retired Current occupation: [employer] Gender identity: Female Cognitive needs: No Hearing needs: No Vision needs: No Results AMB Urinalysis, Automated UA Leukoctes 70 Alessandra/uL Last Edit by KAY Ruth on 07/30/24 14:53 UA Nitrite Negative Last Edit by KAY Ruth on 07/30/24 14:53 UA Urobilinogen 3.5 mg/dL Last Edit by KAY Ruth on 07/30/24 14:53 UA Protein 1.0 mg/dL Last Edit by KAY Ruth on 07/30/24 14:53 UA pH 6.0 Last Edit by KAY Ruth on 07/30/24 14:53 UA Blood 10 Zhen/uL Last Edit by KAY Ruth on 07/30/24 14:53 UA Specific [place] 1.015 Last Edit by KAY Ruth on 07/30/24 14:53 UA Ketone Negative Last Edit by KAY Ruth on 07/30/24 14:53 UA Bilirubin 0 mg/dL Last Edit by KAY Ruth on 07/30/24 14:53 UA Glucose 0 mg/dL Last Edit by KAY Ruth on 07/30/24 14:53 Results Reviewed Results Reviewed: Date of Service: 06/30/24 CLINICAL HISTORY: R31.29 - Other microscopic hematuria CT abdomen and pelvis with and without contrast Comparison: 04/03/23 Findings: No consolidation at the lung bases. Unremarkable gallbladder. No bladder stone. No hydronephrosis or nephrolithiasis. The kidneys enhance normally and excrete contrast symmetrically. Subcentimeter low attenuating lesion in the upper pole of the right kidney which is too small to characterize. Ill-defined enhancement of the dome of the liver, indeterminate. The other solid organs are unremarkable. No bowel wall thickening or dilation. A normal appendix is identified. Infrarenal abdominal aortic aneurysm measuring 4.2 cm, previously measuring 4.0 cm. Severe calcified atherosclerotic disease. No lymphadenopathy. No ascites. No acute osseous abnormality. Impression: No urinary tract stone or obstruction. Infrarenal abdominal aortic aneurysm measuring 4.2 cm. One year follow up is recommended. Urine cytology-Collected: 04/28/24 Diagnosis Urine: Negative for high-grade urothelial carcinoma. COMMENT: Examination of a monolayer preparation slide shows benign urothelial cells, benign squamous cells, scattered acute inflammatory cells and rare red blood cells. Clinical History Microscopic hematuria Material Received Urine Gross Description Received is 65 cc of clear yellow fluid from which a ThinPrep slide is prepared Assessment & Plan Assessment & Plan Orders: Orders AMB Urinalysis Automated Today Z13.9 - Encounter for screening, unspecified Coding
== END 2024-07-30 14:59 | disposition home or self-care (01) ==
LOC: HO.HUSH 14:30
PROVIDERS: PCP Nurse Practitioner Family; Visit Provider Urology
DX: Z13.9 Encounter for screening, unspecified (principal)

== ENCOUNTER 2024-08-13 14:24 | Outpatient (AMB) | payer MEDICARE, SELFPAY ==
--- NOTE | 2024-08-13 14:37 | A.OFFVIS_ITS ---
Vital Signs 3 08/13/24 14:41 Height 5 ft 7 in Weight 175 lb 4.28 oz BMI 27.4 BP 100/60 Blood Pressure Location Rt brachial Position Sitting Pulse 63 Pulse Source Pulse Oximeter Pulse Oximetry (%) 93 Oxygen Delivery Method Room Air Intake Visit Reasons: Thyroid nodule Intake Note: Patient present today for Thyroid nodule office visit. Electrical Prospector Required: No Accompanied by: Self / Same As Patient Allergies Wellbutrin Adverse Reaction (Unknown, Uncoded 08/13/24 14:41) worsening mood, dizziness HPI Comments Details: 69-year-old female seen today for follow up of nontoxic multinodular goiter. HPI 2021: Initially diagnosed with thyroid nodule when CT of the chest was done. This showed a left lower pole nodule. 03/01/2022: Ultrasound of the neck subsequently redemonstrated this. 1.6 X 1.5 X 2 cm. Heterogenous nodule? 07/12/2022:FNA biopsy of her left lower pole 2.0 cm thyroid nodule with cytology revealing atypia of undetermined significance (bethesda category III). Affirma was benign. After discussion with the patient regarding possible lobectomy due to increased risk of thyroid cancer because of her exposure to [place] possibly and family history of thyroid cancer versus ultrasound surveillance, it was decided to monitor with ultrasound surveillance. TSH was low while using biotin. Stopped biotin and TSH normalized. Denies any history of head or neck irradiation, however she was present in [place] during the [place] fallout. She did not receive iodine prophylaxis. She is unsure if she was in the plume. She does have a family history of thyroid cancer in her Mother. Interval history 07/16/2024: Ultrasound of the thyroid I reviewed the images myself which showed a right lower pole 1 cm solid isoechoic TR 3 category nodule, a subcentimeter solid hypoechoic TR 3 isthmus nodule, and relatively stable size of the 1.9 cm solid, isoechoic left midpole TR 4 category nodule with punctate echogenic foci. Plan would be to repeat ultrasound in July 2025 and 1 year with follow up in August 2025. Last TSH normal from May 2024. Currently denies any compressive symptoms. She does have a sore throat currently , getting better but had swollen lymph nodes got evaluated at urgent care 2 days ago and is on prednisone 5 day course Denies any symptoms of hyper or hypothyroidism. Physical exam General: sitting comfortably in no acute distress HEENT: normocephalic/atraumatic, Neck: supple, symmetrical Cardiac: normal heart sounds Pulm: normal breath sounds B/L, no added breath sounds Abd: not distended, no tenderness Extremities: no edema, no signs of myxedema Laboratory Tests 02/21/23 12/11/23 09:08 08:00 TSH 0.45 0.62 Laboratory Tests 05/14/24 09:39 TSH 0.53 EXAMINATION: US THYROID 07/16/24 HISTORY: E04.1 - Nontoxic single thyroid nodule TECHNIQUE: Real-time grayscale ultrasound imaging was performed and images were reviewed. COMPARISON: Correlation is made with a CT of the chest dated 09/06/2023. FINDINGS: SIZE: The right thyroid lobe measures 7.4 x 2.2 x 2.6 cm. The left thyroid lobe measures 6.1 x 1.9 x 2.6 cm. The isthmus measures 4 mm. FLOW: Flow to the gland is normal. ECHOGENICITY: The echotexture of the gland is homogeneous. NODULES: Multiple bilateral nodules are identified as described below: Nodule #: 1 Location: Right lower pole measuring 10 x 7 x 9 mm. Shape: Wider than tall (0 points) Margins: Smooth (0 points) Echotexture: Isoechoic (1 point) Composition: Solid (2 points) Calcifications: None (0 points) Total points: 3 TIRADS: TR3: Mildly suspicious. Nodule #: 2 Location: Isthmus, measuring 5 x 4 x 3 mm. Shape: Round (0 points) Margins: Smooth (0 points) Echotexture: Hyperechoic (1 point) Composition: Solid (2 points) Calcifications: None (0 points) Total points: 3 TIRADS: TR3: Mildly suspicious. Nodule #: 3 Location: Midportion of the left thyroid lobe measuring 1.9 x 1.3 x 1.4 cm. Shape: Wider than tall (0 points) Margins: Smooth (0 points) Echotexture: Indeterminate (1 point) Composition: Mostly solid (2 points) Calcifications: Punctate calcifications (3 points) Total points: 6 TIRADS: TR4: Moderately suspicious. US/US thyroid IMPRESSION: Moderately suspicious 1.9 x 1.3 x 1.4 cm nodule in the midportion of the left thyroid lobe. According to ACR TI-RADS guidelines below, ultrasound-guided fine-needle aspiration is recommended. Thyroid US: 03/01/2022 FINDINGS: Ultrasound imaging of the concerned area of the right neck which includes level 3 and level 5 segments there are small shotty lymph nodes measuring 1 cm maximum in long axis in the right neck. No abnormal lymph nodes seen in left neck. Incidentally noted is a left thyroid heterogeneous nodule measuring 1.6 x 1.5 x 2.0 cm. US/US soft tiss head and/or neck IMPRESSION: No abnormal size neck lymph nodes seen. Incidentally noted is a left thyroid heterogeneous nodule measuring 1.6 cm. Recommend ultrasound thyroid for follow-up. [facility] Medical History (Updated 08/13/24 @ 14:43 by Kerrie Tuttle MD) Multinodular goiter Nicotine dependence, cigarettes, uncomplicated Hyperthyroidism Left thyroid nodule Liver lesion, right lobe Tubular adenoma of colon (~2013) History of COVID-19 Elevated liver enzymes Postmenopausal Parotiditis Elevated systolic blood pressure reading with diagnosis of hypertension AAA (abdominal aortic aneurysm) Migraines Elevated fasting glucose Dyslipidemia Back pain Surgical History (Updated 07/14/24 @ 11:02 by Cheryl Allison PA-C) History of colonoscopy Family History Mother Thyroid cancer Daughter No problems noted. Father Stroke Social History Housing: House Alcohol intake: current Alcohol intake frequency: a few times a month Alcohol type: wine Patient Tobacco Use Status: Current everyday Tobacco user Tobacco use type: Cigarette Cigarettes Per Day: 3 Years Smoked: (onset 19yo, 1ppd x 47yrs, 40+PYH) e-Cigarette/Vaping Use: Never Used Second Hand Smoke Exposure: Yes service: No Current occupational status: retired Current occupation: [employer] Gender identity: Female Cognitive needs: No Hearing needs: No Vision needs: No Assessment & Plan Assessment & Plan (1) Multinodular goiter: Code(s): E04.2 - Nontoxic multinodular goiter Category: Medical Plan: 69-year-old female with possible exposure to [place] incident who did not receive iodine prophylaxis with family history of thyroid cancer, who was diagnosed with a left-sided thyroid nodule back in 2021. Biopsy of this July 2022 was AUS [place] category 3 With nuclear atypia, Afirma came back benign. discussion was done with the patient regarding possible lobectomy due to increased risk of thyroid cancer because of her exposure to [place] possibly and family history of thyroid cancer versus ultrasound surveillance, it was decided to monitor with ultrasound surveillance. 07/16/2024: Ultrasound of the thyroid I reviewed the images myself which showed a right lower pole 1 cm solid isoechoic TR 3 category nodule, a subcentimeter solid hypoechoic TR 3 isthmus nodule, and relatively stable size of the 1.9 cm solid, isoechoic left midpole TR 4 category nodule with punctate echogenic foci. Plan would be to repeat ultrasound in July 2025 and 1 year with follow up in August 2025. She does not have any compressive symptoms. Last TSH normal from May 2024. No symptoms of hypo or hyperthyroidism. Plan: - ordered ultrasound of the thyroid to be done in July 2025 - ordered TSH with reflex free T4 to be done in July 2025 - follow up in 1 year in August 2025 Plan see above Orders: Orders 2 Free T4 (Free Thyroxine) 07/05/25 E04.2 - Nontoxic multinodular goiter Thyroid Stimulating Hormone 07/05/25 E04.2 - Nontoxic multinodular goiter US thyroid 07/05/25 E04.2 - Nontoxic multinodular goiter Patient Instructions: Do ultrasound of the thyroid in July 2025, someone we will call you to schedule this, please make sure this is done a few weeks before your appointment in August 2025 Do thyroid blood work a few days before your next appointment in August 2025, orders in place Follow up in 1 year in August 2025 Coding Level of Care Code Est Pt Level 3 (95255) Diagnoses Multinodular goiter E04.2
[2024-08-13 14:41] VITALS: BP 100/60; PULSE 63; O2SAT 93; BMI 27.4
--- OUTSIDE RECORDS SUMMARY | 2024-08-13 16:59 | XMS_ITS | Clinical Summary ---
[facility] Organization [facility] Address [address] [place] [address] Care Team Providers Care Rail Car Painter/Sandblaster Name Role Phone Unavailable Primary Care Provider [...]
== END 2024-08-13 14:53 | disposition home or self-care (01) ==
LOC: HO.ENCR 14:25
PROVIDERS: PCP Nurse Practitioner Family; Visit Provider Student in an Organized Health Care Education/Training Program
DX: E04.2 Nontoxic multinodular goiter (principal)
CPT/HCPCS: 99213

== ENCOUNTER → 2024-08-13 14:24 | Outpatient (BNVA) | payer MEDICARE, SELFPAY | PROVIDERS: PCP Nurse Practitioner Family; Visit Provider Student in an Organized Health Care Education/Training Program | DX: E04.2 Nontoxic multinodular goiter (principal) | CPT/HCPCS: 99212 ==

== ENCOUNTER 2024-09-22 09:00 | Outpatient (RCR) | payer MEDICARE, OTHER, MEDICAID, SELFPAY ==
--- NOTE | 2024-07-21 09:36 | MHC.PT.EP ---
[facility] [place] [facility] [place] [facility] [place] [facility] [address] Taylor Benítez [address] [phone] F: [phone] F: [phone] F: [phone] F: [phone] Physical Therapy Plan of Care Date of Evaluation: 07/21/24 Date of Surgery: n/a Diagnosis: cervical muscle spasm Assessment: Patient is a 69 year old female presenting to PT with complaints of pain in her neck. Pt reports onset of pain began about 1 month ago due to insidious onset. She presents today with impairments in pain, cervical ROM, posture, tenderness to palpation. 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 Pt expresses snf goal of reducing pain, and is motivated to work towards this in PT. Clinical presentation today is most consistent with signs and sx associated with neck pain and pt will benefit from skilled PT 2 week x 4 weeks to address the following problems and impairments noted upon evaluation: pain, cervical ROM, posture, tenderness to palpation. These problems limit the patient with the following functional activities: sleep, ADLs, yardwork. The prescribed treatment plan of care is medically necessary. Co-morbidities of none were identified and taken into considerations of plan of care. Pt was educated on HEP, role of PT, prognosis, POC. Frequency and Duration: The patient will be seen 2 x week x 4 weeks Short Term Goals: Pt will demonstrate min to no pain at rest in 2 weeks. Pt will demonstrate min to no cues for posture with exercises in 2 weeks. Pt will demonstrate cervical ROM in available range with less tightness in 2 weeks. Usp Goals: Pt will demonstrate improved NDI score by 10% in 4 weeks for improved functional mobility. Pt will demonstrate ability to complete ADLs with min to no pain in 4 weeks for return to PLOF. Pt will demonstrate ability to complete yardwork at her PLOF with min to no pain in 4 weeks. Treatment Plan: Modalities to reduce pain, spasms and effusion. Manual therapy to restore motion and function. Therapeutic exercise to improve strength and flexibility. Neuromuscular re-education for posture and balance. Therapeutic activities to return to functional activities of daily living. Electronically signed by: Fina Bloom, PT, DPT, ATC Please sign and return to therapist. Thank you for your referral.
--- NOTE | 2024-09-25 08:06 | MHC.PT.DC ---
[facility] [place] Office [place] Office [place] Office [address] Taylor Benítez [address] [phone] F: [phone] F: [phone] F: [phone] F: [phone] Physical Therapy Discharge Report Diagnosis: cervical muscle spasm Date of Surgery: n/a Date of Evaluation: 07/21/24 Date of Discharge: 09/25/24 Treatments to Date: 7 Cancellations to Date: 2 No Shows to Date: 0 Discharge Status: Improved Function Independent with HEP Discharge Summary: Pt saw INSTALL TECHNICIAN for her last visit and plan was to d/c. Based on INSTALL TECHNICIAN notes pt was in agreement with this and independent in her program. Electronically signed by: Fina Bloom, PT, DPT, ATC Please sign and return to therapist. Thank you for your referral.
== END 2024-09-25 08:06 | disposition home or self-care (01) ==
LOC: HO.PTCHIC 09:00
PROVIDERS: PCP Nurse Practitioner Family; Visit Provider Physician Assistant
DX: M62.838 Other muscle spasm (principal)
CPT/HCPCS: 97110; 97140; 97161

== ENCOUNTER 2024-10-15 15:55 | Outpatient (REF) | payer OTHER, SELFPAY ==
--- NOTE | ~2024-10-15 | MM_ITS ---
EXAMINATION: MM SCREENING DIGITAL BREAST TOMOSYNTHESIS, BILATERAL CLINICAL INFORMATION: Screening. Asymptomatic. COMPARISON: Mammography: Comparison is made with available priors TECHNIQUE: Digital breast mammography with tomosynthesis is performed in both the craniocaudal and mediolateral oblique views along with computer-aided detection (CAD). FINDINGS: There are scattered areas of fibroglandular density (ACR BI-RADS breast composition Category b). There are no significant masses, abnormal calcifications, or other abnormalities. MM/MM tomosynthesis screening BI IMPRESSION: No mammographic evidence of malignancy. ASSESSMENT: BI-RADS BI-RADS 1 - Negative RECOMMENDATION: Routine annual mammography screening. 1 year F/U This examination should not preclude the clinical evaluation of a suspicious palpable abnormality. This patient's information was entered into a reminder system with a target due date for their next mammogram. Electronically signed by: Nette Aranda DO 10/20/2024 02:02 PM EDT
--- OUTSIDE RECORDS SUMMARY | 2024-10-15 16:04 | XMS_ITS | Clinical Summary ---
[facility] Organization [facility] Address [address] [place] [address] Care Team Providers Care Hris Analyst Name Role Phone Unavailable Primary Care Provider [...] Panel) 02/04/2022 Colorectal Cancer Screening: Colonoscopy 02/04/2022 Hepatitis C Screening 02/04/2022 Osteoporosis Screening (Bone Density Screening) 02/04/2022 Social Influencers of Health Screening 02/04/2022 Falls Risk Assessment 2022 Hypertension/CHF/CAD Annual BMP Blood Test 02/17/2022 COVID-19 Vaccine (1 - 2023-2 5 season) 2023 Depression Screening 03/04/2024 Influenza Vaccine (#1) 2024 01/12/2019 HIB Vaccines Aged Out No longer [...]
== END 2024-10-15 15:56 | disposition home or self-care (01) ==
LOC: HO.MAMMO 15:55
PROVIDERS: PCP Nurse Practitioner Family; Visit Provider Nurse Practitioner Family
DX: Z12.31 Encounter for screening mammogram for malignant neoplasm of breast (principal)
CPT/HCPCS: 77063; 77067

== ENCOUNTER → 2024-10-15 16:00 | Outpatient (BNV) | payer OTHER, SELFPAY | PROVIDERS: PCP Nurse Practitioner Family; Visit Provider Internal Medicine | DX: Z12.31 Encounter for screening mammogram for malignant neoplasm of breast (principal) | CPT/HCPCS: 77063; 77067 ==

== ENCOUNTER 2024-11-17 10:01 | Outpatient (REF) | payer OTHER, SELFPAY ==
--- OUTSIDE RECORDS SUMMARY | 2024-11-17 12:59 | XMS_ITS | Clinical Summary ---
Author Organization [facility] Address [address] [place] [address] Care Team Providers Care Electrical And Electronic Assembler Name Role Phone Unavailable Primary Care Provider [...] 2022 Hypertension/CHF/CAD Annual BMP Blood Test 02/17/2022 Depression Screening 03/04/2024 COVID-19 Vaccine ( - 2023-2 5 season) 2024 Influenza Vaccine (#1) 2024 01/12/2019 HIB Vaccines [...]
[2024-11-17 13:20] LABS: Appearance Urine Clear; Glucose Urine UA Negative (Negative); PH 7.5 (5.0-9.0); Specific Gravity - Urine <= 1.005 (1.005-1.025)
[2024-11-17 14:11] LABS: Anion Gap 11 (12-20); Blood Urea Nitrogen 15 mg/dL (9-16); Calcium 9.6 mg/dL (8.4-10.2); Carbon Dioxide 32 mmol/L (22-29); Chloride 104 mmol/L (96-108); Estimated Glomerular Filt Rate > 60; Potassium 3.7 mmol/L (3.3-5.1); Sodium 143 mmol/L (135-145)
[2024-11-17 14:32] LABS: Total Protein Urine Random 14 mg/dL (<12)
== END 2024-11-17 10:02 | disposition home or self-care (01) ==
LOC: HO.HMGCLDS 10:01
PROVIDERS: PCP Nurse Practitioner Family; Visit Provider Internal Medicine Hypertension Specialist
DX: I10 Essential (primary) hypertension (principal); R80.9 Proteinuria, unspecified
CPT/HCPCS: 36415; 80048; 81003; 82570; 84133; 84156

== ENCOUNTER 2024-11-19 15:10 | Outpatient (AMB) | payer OTHER, SELFPAY ==
[2024-11-19 15:12] VITALS: BP 112/68; PULSE 70; O2SAT 94; BMI 26.8
--- NOTE | 2024-11-19 15:12 | HO.NEPHOV ---
Vital Signs 11/19/24 15:12 Height 5 ft 7 in Weight 171 lb BMI 26.8 BP 112/68 Blood Pressure Location Lt brachial Position Sitting Pulse 70 Pulse Source Pulse Oximeter Pulse Oximetry (%) 94 Oxygen Delivery Method Room Air Intake Visit Reasons: 6 MO FU/ CONF Mediator Required: No Accompanied by: Self / Same As Patient Allergies Wellbutrin Adverse Reaction (Unknown, Uncoded 08/13/24 14:41) worsening mood, dizziness Medication List - Last Reconciled 11/19/24 by Erwin Agosto MD albuterol sulfate 90 mcg/actuation (Ventolin HFA) 1 puff inhalation QID PRN amlodipine 2.5 mg PO DAILY 90 days aspirin (Adult Low Dose Aspirin) 81 mg PO DAILY 90 days ezetimibe 10 mg PO DAILY 90 days Gait belt daily use for lumbar support ibuprofen 600 mg PO Q8H PRN lisinopril-hydrochlorothiazide 20-25 mg 1 tab PO DAILY meloxicam 15 mg PO DAILY PRN metoprolol succinate ER 25 mg PO DAILY 90 days nicotine (polacrilex) 4 mg buccal Q6H PRN omega-3 acid ethyl esters 1 cap PO BID PRN rosuvastatin 40 mg PO DAILY 90 days [SI joint Belt As directed] tizanidine 4 mg PO BEDTIME PRN HPI Comments Details: Serenity is a pleasant 68-year-old woman with a history of hypertension. she was found to have proteinuria by urine dipstick and hence this referral. She has a history of chronic smoking. She has infrarenal abdominal aortic aneurysm measuring between 3.7-4 cm and currently being actively followed by Dr. Wood. He has no history of diabetes mellitus No history of any kidney issues in the past. No family history of kidney issues as well. 01/27/2024;Overall doing well. No new issues. 05/07/24: No urinary symptoms. Meds are the same. No edema 11/19/24 The patient is a 69-year-old female presenting for a routine follow-up visit to monitor her chronic conditions, including hypertension and kidney function. Hypertension is well-controlled with lisinopril, hydrochlorothiazide, and amlodipine, maintaining a blood pressure of 112/68 mmHg. Medication adherence is reported as good. Hyperlipidemia is present, with elevated cholesterol levels noted in recent labs. Kidney function is stable, with no significant proteinuria or hematuria. Medical History: - Essential Hypertension - Hyperlipidemia - Proteinuria Medications: - Lisinopril 2.5 mg daily for hypertension - Hydrochlorothiazide for hypertension - Amlodipine for hypertension Social History: - The patient maintains good hydration habits, including regular water intake. Diagnostic Results: - Labs: Kidney function tests are satisfactory, with no significant proteinuria or hematuria. - Labs: Cholesterol levels are elevated. [facility] Medical History (Updated 08/13/24 @ 14:43 by Kerrie Tuttle MD) Multinodular goiter Nicotine dependence, cigarettes, uncomplicated Hyperthyroidism Left thyroid nodule Liver lesion, right lobe Tubular adenoma of colon (~2013) History of COVID-19 Elevated liver enzymes Postmenopausal Parotiditis Elevated systolic blood pressure reading with diagnosis of hypertension AAA (abdominal aortic aneurysm) Migraines Elevated fasting glucose Dyslipidemia Back pain Surgical History History of colonoscopy Family History Mother Thyroid cancer Daughter No problems noted. Father Stroke Social History Housing: House Alcohol intake: current Alcohol intake frequency: a few times a month Alcohol type: wine Patient Tobacco Use Status: Current everyday Tobacco user Tobacco use type: Cigarette Cigarettes Per Day: 3 Years Smoked: (onset 19yo, 1ppd x 47yrs, 40+PYH) e-Cigarette/Vaping Use: Never Used Second Hand Smoke Exposure: Yes service: No Current occupational status: retired Current occupation: [employer] Gender identity: Female Cognitive needs: No Hearing needs: No Vision needs: No Physical Exam Vital Signs: Last Vital Signs Pulse 70 11/19/24 15:12 BP 112/68 11/19/24 15:12 Pulse Ox 94 11/19/24 15:12 Oxygen Delivery Method Room Air 11/19/24 15:12 BMI result Body Mass Index 26.8 Comfortable Neck supple no JVD. Lungs entry equal no rales. Heart S1-S2 heard no gallop or rub. Abdomen soft nontender. Neuro alert awake oriented. No asterixis. Extremities no edema. Results Reviewed Nephrology Results: Sodium, (135-145) 143 mmol/L 11/17/24 Potassium, (3.3-5.1) 3.7 mmol/L 11/17/24 Chloride, (96-108) 104 mmol/L 11/17/24 Carbon Dioxide, (22-29) 32 mmol/L H 11/17/24 BUN, (9-16) 15 mg/dL 11/17/24 Creatinine, (0.5-1.4) 0.71 mg/dL 11/17/24 Calcium, (8.4-10.2) 9.6 mg/dL 11/17/24 Urine Protein, (Neg-Trace) Trace mg/dL 11/17/24 Urine Creatinine 14.23 mg/dL 11/17/24 Assessment & Plan Assessment & Plan (1) Proteinuria: Code(s): R80.9 - Proteinuria, unspecified Category: Medical (2) AAA (abdominal aortic aneurysm): Comment: (infrarenal AAA 3.7mm on 07/2021 -per [facility] Dr. Wood) Code(s): I71.4 - Abdominal aortic aneurysm, without rupture Category: Medical (3) HTN (hypertension): Code(s): I10 - Essential (primary) hypertension Category: Medical Plan 68-year-old woman with a dipstick positive proteinuria and essentially normal renal function. She has a history of hypertension. Urine protein creatinine ratio was 0.6 today. No monoclonal proteins. UA was bland without any RBCs or casts. Proteinuria is most likely due to underlying hypertensive kidney disease. Overall renal function stable Goal is to slow the progression of renal disease Maintain blood pressure less than 130/80 continue with MAGDALENE inhibitor for renal protection. Encouraged her to stay on low-sodium diet Elevated tCO2 - most likely due to resp acidosis Probably has COPD May need pulm evaluation Discussed smoking cessation. 11/19/24 Of note, Urine creatinine is verylow ad therefore Urine PRO: Cr is elevated ; UA has no protein. Will repeat Urine Pro:cr and SPEP/UPEP before next visit No anemia or hypercalcemia Renal function is stable Orders: Orders Basic Metabolic Panel 11/19/24 I10 - Essential (primary) hypertension, R80.9 - Proteinuria, unspecified Creatinine Urine 11/19/24 I10 - Essential (primary) hypertension, R80.9 - Proteinuria, unspecified UA and rflx microscopic 11/19/24 I10 - Essential (primary) hypertension, R80.9 - Proteinuria, unspecified Protein Electrophoresis, Serum 11/19/24 I10 - Essential (primary) hypertension, R80.9 - Proteinuria, unspecified Total Protein Urine Random 11/19/24 I10 - Essential (primary) hypertension, R80.9 - Proteinuria, unspecified Immunofixation Pnl, Serum 11/19/24 I10 - Essential (primary) hypertension, R80.9 - Proteinuria, unspecified Coding Level of Care Code Est Pt Level 4 (85114) Diagnoses Proteinuria R80.9 AAA (abdominal aortic aneurysm) I71.4 HTN (hypertension) I10
--- OUTSIDE RECORDS SUMMARY | 2024-11-19 16:43 | XMS_ITS | Clinical Summary ---
[facility] Address [address] [place] [address] Care Team Providers Care Regulatory Administrator Name Role Phone Unavailable Primary Care Provider [...]
== END 2024-11-19 15:27 | disposition home or self-care (01) ==
PROVIDERS: PCP Nurse Practitioner Family; Visit Provider Internal Medicine Hypertension Specialist
DX: R80.9 Proteinuria, unspecified (principal); I71.40 Abdominal aortic aneurysm, without rupture, unspecified; I10 Essential (primary) hypertension
CPT/HCPCS: 99214

== ENCOUNTER → 2024-11-19 15:10 | Outpatient (BNVA) | payer OTHER, SELFPAY | PROVIDERS: PCP Nurse Practitioner Family; Visit Provider Internal Medicine Hypertension Specialist | DX: I10 Essential (primary) hypertension (principal); I71.40 Abdominal aortic aneurysm, without rupture, unspecified; R80.9 Proteinuria, unspecified | CPT/HCPCS: 99212 ==

== ENCOUNTER 2024-12-01 09:58 | Outpatient (AMB) | payer OTHER, SELFPAY ==
[2024-12-01 10:00] VITALS: BP 152/90; PULSE 51; TEMP 36.9; O2SAT 96; BMI 26.8
--- NOTE | 2024-12-01 10:00 | MHC.OFFWIV ---
Intake Vital Signs 12/01/24 10:00 Height 5 ft 7 in Weight 171 lb BMI 26.8 BP 152/90 H Blood Pressure Location Lt brachial Position Sitting Pulse 51 Pulse Source Pulse Oximeter Temp 98.5 F Temp Source Oral Pulse Oximetry (%) 96 Oxygen Delivery Method Room Air Intake Visit Reasons: EP back pain/groin area pain Intake Note: pt presents with low back pain and right groin pain Patient Tobacco Use Status: Current everyday Tobacco user Allergies Wellbutrin Adverse Reaction (Unknown, Uncoded 08/13/24 14:41) worsening mood, dizziness Do you need a note to return to daycare/school/sports/work: No HPI HPI Comments History of Present Illness Details History of Present Illness - The patient is a 69-year-old female presenting with chronic lower back pain and groin pain. - Chronic lower back pain: Persistent pain associated with a crooked spine, noted by physical therapy. Five sessions completed with further therapy recommended. MRI suggested for possible bulging disc. - Groin pain: Present for about a week, possibly related to back issues or previous UTI. - Yeast infection: Developed post-antibiotic treatment for UTI, characterized by itching without discharge. Antifungal treatment prescribed but symptoms persist. - Urinary tract infection: Occurred a month ago, treated with antibiotics, now resolved. Physical Exam General: Cooperative, healthy appearing, comfortable, no acute distress and well developed Orientation: Patient oriented x3 Limitations: No limitations Head: Normal to inspection Ears: Hearing grossly normal bilaterally Nose: Normal External nose present Face and sinus: Normal facial exam Eyes: Appearance normal, both eyes and all related structures Neck: Normal visual inspection and Yes full ROM Respiratory: Normal respiratory effort and able to speak in complete sentences. Skin: No rashes or lesions noted Neuro: Patient oriented x3 Extremities: Left shoulder is lower than the right, otherwise normal to inspection Review of Systems - Musculoskeletal: Reports chronic lower back pain and groin pain. - Genitourinary: Reports itching without discharge, denies current urinary symptoms. All systems reviewed and are unremarkable except as noted in HPI [facility] Medical History (Updated 12/01/24 @ 10:30 by Юлия Morales PA-C) Multinodular goiter Nicotine dependence, cigarettes, uncomplicated Hyperthyroidism Left thyroid nodule Liver lesion, right lobe Tubular adenoma of colon (~2013) History of COVID-19 Elevated liver enzymes Postmenopausal Parotiditis Elevated systolic blood pressure reading with diagnosis of hypertension AAA (abdominal aortic aneurysm) Migraines Elevated fasting glucose Dyslipidemia Back pain Surgical History History of colonoscopy Family History Mother Thyroid cancer Daughter No problems noted. Father Stroke Social History Housing: House Alcohol intake: current Alcohol intake frequency: a few times a month Alcohol type: wine Patient Tobacco Use Status: Current everyday Tobacco user Tobacco use type: Cigarette Cigarettes Per Day: 3 Years Smoked: (onset 19yo, 1ppd x 47yrs, 40+PYH) e-Cigarette/Vaping Use: Never Used Second Hand Smoke Exposure: Yes service: No Current occupational status: retired Current occupation: [employer] Gender identity: Female Cognitive needs: No Hearing needs: No Vision needs: No Physical Exam Vital Signs: Last Vital Signs Temp 98.5 F 12/01/24 10:00 Pulse 51 12/01/24 10:00 BP 152/90 H 12/01/24 10:00 Pulse Ox 96 12/01/24 10:00 Oxygen Delivery Method Room Air 12/01/24 10:00 BMI result Body Mass Index 26.8 Assessment & Plan Assessment & Plan (1) Chronic lower back pain: Code(s): M54.50 - Low back pain, unspecified; G89.29 - Other chronic pain Qualifiers: Back pain laterality: bilateral Sciatica presence: without sciatica Qualified Code(s): M54.50 - Low back pain, unspecified; G89.29 - Other chronic pain Plan: Plan Patient was informed and verbally consented to the use of an ambient scribe for clinic note documentation during this visit. Chronic Lower Back Pain - Continue physical therapy sessions as recommended. Sent new referral to PT. - Consider MRI to evaluate for possible bulging disc. Message sent to PCP. - Monitor symptoms and assess relation to back issues or previous UTI. Yeast Infection - Prescribe antifungal medication, instruct to take one pill now and another in 72 hours if symptoms persist. - Advise follow-up if symptoms do not resolve after treatment. Orders: Orders PT Evaluation and Treatment Today G89.29 - Other chronic pain, M54.50 - Low back pain, unspecified Medications: New fluconazole may repeat second dose 72 hrs after first dose if symptoms persist 150 mg PO Q3D 2 tabs 0RF Coding Level of Care Code Est Pt Level 3 (68039) Diagnoses Chronic bilateral low back pain without sciatica M54.50; G89.29 Back pain laterality: bilateral Sciatica presence: without sciatica
--- OUTSIDE RECORDS SUMMARY | 2024-12-01 10:57 | XMS_ITS | Clinical Summary ---
[facility] Address [address] [place] [address] Care Team Providers Care Brim And Crown Presser Name Role Phone Unavailable Primary Care Provider [...]
== END 2024-12-01 10:27 | disposition home or self-care (01) ==
PROVIDERS: PCP Nurse Practitioner Family; Visit Provider Physician Assistant
DX: M54.50 Low back pain, unspecified (principal); G89.29 Other chronic pain

== ENCOUNTER → 2024-12-01 09:58 | Outpatient (BNVA) | payer OTHER, SELFPAY | PROVIDERS: PCP Nurse Practitioner Family; Visit Provider Physician Assistant | DX: M54.50 Low back pain, unspecified (principal); G89.29 Other chronic pain; R10.31 Right lower quadrant pain | CPT/HCPCS: 99212 ==

== ENCOUNTER 2025-02-04 09:00 | Outpatient (RCR) | payer OTHER, SELFPAY ==
--- NOTE | 2024-10-27 09:41 | MHC.PT.EP ---
[facility] [place] Office [place] Office [place] Office [address] Taylor Benítez [address] [phone] F: [phone] F: [phone] F: [phone] F: [phone] Physical Therapy Plan of Care Date of Evaluation: 10/27/24 Date of Surgery: n/a Diagnosis: chronic LBP Assessment: Patient is a 69 year old female presenting to PT with complaints of pain in her low back. Pt reports onset of pain began about 1 month ago due to insidious onset. She presents today with impairments in pain, lumbar ROM, core strength, hip strength. 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 Pt expresses group home goal of reducing pain, and is motivated to work towards this in PT. Clinical presentation today is most consistent with signs and sx associated with low back pain and pt will benefit from skilled PT 2 week x 4 weeks to address the following problems and impairments noted upon evaluation: pain, lumbar ROM, core strength, hip strength. These problems limit the patient with the following functional activities: sitting, bending, lifting, ADLs. The prescribed treatment plan of care is medically necessary. Co-morbidities of none were identified and taken into considerations of plan of care. Pt was educated on HEP, role of PT, prognosis, POC. Frequency and Duration: The patient will be seen 2 x week x 4 weeks Short Term Goals: Pt will demonstrate ability to move through available lumbar ROM with min to no pain in 2 weeks. Pt will demonstrate improved hip MMT strength by 1/3 grade in 2 weeks. Pt will demonstrate ability to perform PPT with good core control in 2 weeks. Intermediate Goals: Pt will demonstrate improved Sarah score by 10% in 4 weeks for improved functional mobility. Pt will demonstrate ability to sit with min to no pain in 4 weeks for improved tolerance to car rides. Pt will demonstrate ability to bend and lift with min to no pain in 4 weeks for improved tolerance to ADLs. Treatment Plan: Modalities to reduce pain, spasms and effusion. Manual therapy to restore motion and function. Therapeutic exercise to improve strength and flexibility. Neuromuscular re-education for posture and balance. Therapeutic activities to return to functional activities of daily living. Electronically signed by: Fina Bloom, PT, DPT, ATC Please sign and return to therapist. Thank you for your referral.
--- NOTE | 2025-02-12 11:11 | MHC.PT.DC ---
[facility] [place] Office [place] Office [place] Office [address] Taylor Benítez [address] [phone] F: [phone] F: [phone] F: [phone] F: [phone] Physical Therapy Discharge Report Diagnosis: chronic LBP Date of Surgery: n/a Date of Evaluation: 10/27/24 Date of Discharge: 02/12/25 Treatments to Date: 8 Cancellations to Date: 2 No Shows to Date: 1 Discharge Status: Independent with [facility] Discharge Summary: Pt saw ARTIST WOODBLOCK for last appointment and plan at that time was to transition to [facility]. Therefore pt to be d/c to [facility]. Electronically signed by: Fina Bloom, PT, DPT, ATC Please sign and return to therapist. Thank you for your referral.
== END 2025-02-12 11:11 | disposition home or self-care (01) ==
LOC: HO.PTCHIC 09:00
PROVIDERS: PCP Nurse Practitioner Family; Visit Provider Internal Medicine
DX: M54.50 Low back pain, unspecified (principal); G89.29 Other chronic pain
CPT/HCPCS: 97110; 97140; 97161